=== PATIENT | female | born 1975 | race Caucasian/White ===

== ENCOUNTER 2020-11-05 16:45 | Outpatient (REF) | payer MEDICARE, MEDICAID, SELFPAY ==
--- NOTE | 2020-11-05 16:54 | XR_ITS ---
EXAMINATION: XR RIBS, RIGHT CLINICAL INFORMATION: Fall COMPARISON: Previous chest x-ray August 2017 TECHNIQUE: 3 views of the right ribs and one view of the chest were obtained. FINDINGS: Lungs are clear. No consolidation, pneumothorax, or pleural effusion. The cardiomediastinal silhouette and pulmonary vasculature are normal. Osseous structures are unremarkable. Ribs are intact. No fractures are identified. XR/XR ribs RT min 3V w CXR1V IMPRESSION: Unremarkable examination.
== END 2020-11-05 16:46 | disposition home or self-care (01) ==
LOC: HO.XRAY 16:45
PROVIDERS: PCP Internal Medicine; Visit Provider Internal Medicine
DX: R07.81 Pleurodynia (principal); Z91.81 History of falling
CPT/HCPCS: 71101

== ENCOUNTER 2021-05-21 16:09 | Outpatient (REF) | payer MEDICARE, MEDICAID, SELFPAY ==
--- NOTE | ~2021-05-21 | MM_ITS ---
EXAMINATION: MM SCREENING DIGITAL BREAST TOMOSYNTHESIS, BILATERAL CLINICAL INFORMATION: Screening. Asymptomatic. The lifetime risk of breast cancer based on the Tyrer-Cuzick Model is 6%. COMPARISON: Mammography: 05/31/2019, 01/20/2014 TECHNIQUE: Digital breast tomosynthesis is performed in both the craniocaudal and mediolateral oblique views along with computer-aided detection (CAD). Synthesized 2D images are generated from the tomosynthesis. FINDINGS: There are scattered areas of fibroglandular density (ACR BI-RADS breast composition Category b). There are no significant masses, abnormal calcifications, or other abnormalities. Parenchymal pattern is similar to prior exams. There is no developing density or interval mass or architectural abnormality. The axilla and skin contours are unremarkable. MM/MM tomosynthesis screening BI IMPRESSION: No mammographic evidence of malignancy. ASSESSMENT: BI-RADS 1: Negative RECOMMENDATION: Routine annual mammography screening. This patient's information was entered into a reminder system with a target due date for their next mammogram.
[2021-05-21 18:07] LABS: Thyroid Stimulating Hormone 0.59 uIU/mL (0.32-4.0)
== END 2021-05-21 16:10 | disposition home or self-care (01) ==
LOC: HO.MAMMO 16:09
PROVIDERS: Absent Provider Internal Medicine; PCP Internal Medicine; Visit Provider Internal Medicine
DX: Z12.31 Encounter for screening mammogram for malignant neoplasm of breast (principal); E03.9 Hypothyroidism, unspecified
CPT/HCPCS: 36415; 77063; 77067; 84443

== ENCOUNTER 2021-06-19 14:21 | Outpatient (REF) | payer MEDICARE, MEDICAID, SELFPAY ==
[2021-06-19 15:02] LABS: MANUAL DIFF FLAG NO
[2021-06-19 15:05] LABS: Basophils Percent Auto 0.4 % (0-2); Eosinophils Absolute Auto 0.3 X10*3/uL (0.0-0.4); Eosinophils Percent Auto 3.2 % (0-4); Hematocrit 35.4 % (37-47); Hemoglobin 12.1 g/dl (12.0-16.0); Imm Gran Abs Auto 0.04 X10*3/uL (0.00-0.03); Imm Gran Pct Auto 0.4 % (0.0-0.4); Lymphocytes Percent Auto 20.9 % (20-40); Mean Corpuscular HGB Conc 34.2 g/dl (31.0-35.0); Mean Corpuscular Hemoglobin 30.2 pg (27.0-33.0); Mean Corpuscular Volume 88.3 fL (80-98); Mean Platelet Volume 8.8 fL (9.4-12.3); Monocytes Absolute Auto 0.6 X10*3/uL (0.1-1.2); Monocytes Percent Auto 6.4 % (2-11); Neutrophils Absolute Auto 6.6 X10*3/uL (2.0-8.3); Neutrophils Percent Auto 68.7 % (45-73); Platelet Count 367 X10*3/uL (160-400); Red Blood Count 4.01 X10*6/uL (4.20-5.50); Red Cell Distribution Width 13.2 % (11.0-16.0); White Blood Count 9.6 X10*3/uL (4.8-10.8)
[2021-06-19 15:28] LABS: Alanine Aminotransferase 17 U/L (0-31); Albumin Level 4.2 g/dL (3.5-5.0); Alkaline Phosphatase 81 U/L (39-117); Anion Gap 11 (12-20); Aspartate Amino Transferase 19 U/L (5-31); Bilirubin Total 0.4 mg/dL (0.0-1.0); Blood Urea Nitrogen 7 mg/dL (9-16); Calcium 9.3 mg/dL (8.4-10.2); Carbon Dioxide 26 mmol/L (22-29); Chloride 103 mmol/L (96-108); Estimated Glomerular Filt Rate > 60; Glucose Random 97 mg/dL (60-115); Potassium 4.2 mmol/L (3.3-5.1); Sodium 136 mmol/L (135-145)
[2021-06-19 15:48] LABS: Free T4 (Free Thyroxine) 0.78 ng/dL (0.71-1.85); Thyroid Stimulating Hormone 1.07 uIU/mL (0.32-4.0)
[2021-06-21 11:40] LABS: Carbamazepine Tegretol 7.5 mcg/mL (5.0-12.0)
[2021-06-22 05:31] LABS: HPV 16 RNA DETECTED (NOT DETECTED); HPV mRNA E6/E7 rflx Detected (Not Detected)
[2021-06-22 13:09] LABS: Folate 6.6 ng/mL (> or = 4.0); Vitamin B12 477 pg/mL (200-900)
== END 2021-06-19 14:22 | disposition home or self-care (01) ==
LOC: HO.LAB 14:21
PROVIDERS: Obstetrics & Gynecology; PCP Internal Medicine; Visit Provider Internal Medicine
DX: Z01.419 Encounter for gynecological examination (general) (routine) without abnormal findings (principal); Z11.51 Encounter for screening for human papillomavirus (HPV); N91.2 Amenorrhea, unspecified; G40.209 Localization-related (focal) (partial) symptomatic epilepsy and epileptic syndromes with complex partial seizures, not intractable, without status epilepticus; F41.9 Anxiety disorder, unspecified
CPT/HCPCS: 36415; 80053; 80156; 80184; 82607; 82746; 84439; 84443; 85025; 87624; 87625; 88142; 99212

== ENCOUNTER → 2021-07-03 11:48 | Outpatient (BNVA) | payer MEDICARE, MEDICAID, SELFPAY | PROVIDERS: PCP Internal Medicine; Visit Provider Obstetrics & Gynecology | CPT/HCPCS: 99211 ==

== ENCOUNTER 2021-07-31 09:49 | Outpatient (REF) | payer MEDICARE, MEDICAID, SELFPAY | END 2021-07-31 09:50 | disposition home or self-care (01) | LOC: HO.LAB 09:49 | PROVIDERS: PCP Internal Medicine; Visit Provider Obstetrics & Gynecology | DX: A63.0 Anogenital (venereal) warts (principal); B97.7 Papillomavirus as the cause of diseases classified elsewhere | CPT/HCPCS: 57454; 88305; 88342; 88360 ==

== ENCOUNTER 2021-08-05 13:12 | Outpatient (REF) | payer MEDICARE, MEDICAID, SELFPAY | END 2021-08-05 13:13 | disposition home or self-care (01) | LOC: HO.LAB 13:12 | PROVIDERS: PCP Internal Medicine; Visit Provider Obstetrics & Gynecology | DX: D06.9 Carcinoma in situ of cervix, unspecified (principal); N39.0 Urinary tract infection, site not specified; N91.2 Amenorrhea, unspecified | CPT/HCPCS: 87086; 87088; 87186; 99212 ==

== ENCOUNTER 2021-08-15 15:34 | Emergency (ER) | payer MEDICARE, MEDICAID, SELFPAY | END 2021-08-15 16:35 | disposition left against medical advice (07) | PROVIDERS: Emergency Provider Emergency Medicine; PCP Internal Medicine | DX: R21 Rash and other nonspecific skin eruption (principal); R07.9 Chest pain, unspecified ==

== ENCOUNTER 2021-08-23 07:36 | Day surgery (SDC) | payer MEDICARE, MEDICAID, SELFPAY ==
--- NOTE | 2021-08-22 11:56 | HO.ANESPROP2 ---
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 (Acute) HPV in female (Acute) Amenorrhea (Acute) Well woman exam (Acute) Cough (Acute) Acute sinusitis (Acute) Tobacco abuse (Acute) Complex partial seizure (Acute) Anxiety (Acute) GERD (gastroesophageal reflux disease) (Acute) Asthma (Acute) Status post fall (Acute) Rib pain on right side (Acute) Past Medical History Medical History Anxiety Asthma Complex partial seizure GERD (gastroesophageal reflux disease) Head trauma Rib pain on right side Tobacco abuse Vitamin D deficiency Family History Family History (Updated 08/16/21 @ 13:27 by DALY Francisco) Father Parkinson disease Stroke CVD (cardiovascular disease) TIA (transient ischemic attack) Mother Non Hodgkin's lymphoma Hypertension Paternal Aunt Ovarian cancer Paternal Uncle Pancreatic cancer Surgical History Surgical History Cavernous hemangioma of brain History of removal of ovarian cyst History of tubal ligation Social History Social History Housing: House Alcohol intake: never Patient Tobacco Use Status: Current everyday Tobacco user Tobacco use type: Cigarette Cigarette Packs Per Day: 0.3 Cigarettes Per Day: 6.0 e-Cigarette/Vaping Use: Never Used Second Hand Smoke Exposure: No Use of substances other than those prescribed or required for medical reasons: No Are you DNR?: No Advance Directives: No Advance Directives Information Provided: Yes Current occupational status: employed Meds Allergies Allergy/AdvReac Type Severity Reaction Status Date / Time vancomycin [VANCOMYCIN] Allergy Severe ANAPHYLAXIS Verified 08/16/21 13:24 nitrofurantoin Allergy Intermediate Rash Verified 08/16/21 13:24 [From Macrobid] fluconazole [Diflucan] Allergy Unknown anaphylaxis Verified 08/16/21 13:24 pantoprazole [Protonix] Allergy Unknown anaphylaxis Verified 08/16/21 13:24 phenytoin [Dilantin] Allergy Unknown hives Verified 08/16/21 13:24 Home Medications Medication Instructions Recorded Confirmed Last Taken Type carbamazepine 200 mg 200 mg PO 11/05/20 08/14/21 08/23/21 History capsule,extended release [id number] cholecalciferol (vitamin D3) 50 50 mcg PO DAILY 11/05/20 08/15/21 Unknown History mcg (2,000 unit) capsule levetiracetam 500 mg tablet 1,500 mg PO BID 11/05/20 08/15/21 08/23/21 History phenobarbital 32.4 mg tablet 0 mg PO 11/05/20 08/14/21 08/23/21 History lansoprazole 30 mg capsule,delayed 30 mg PO DAILY 11/12/20 08/15/21 08/23/21 History release (Prevacid) Exam Exam Date and Time: August 22, 2021 115 Pertinent Lab Results Pertinent Lab Results: Laboratory Tests 06/19/21 06/19/21 14:35 14:35 WBC 9.6 Hgb 12.1 Hct 35.4 L Plt Count 367 Sodium 136 Potassium 4.2 Chloride 103 Carbon Dioxide 26 BUN 7 L Creatinine 0.73 Assessment and Plan Assessment Anesthesia Assessment: Chart Reviewed Documented by User: Elis Rhoades MD 08/23/21 09:06 [facility] Past Medical History Medical History Anxiety Asthma Complex partial seizure GERD (gastroesophageal reflux disease) Head trauma Rib pain on right side Tobacco abuse Vitamin D deficiency Functional capacity: independent ambulation Patient : No Family History Family History (Updated 08/16/21 @ 13:27 by DALY Francisco) Father Parkinson disease Stroke CVD (cardiovascular disease) TIA (transient ischemic attack) Mother Non Hodgkin's lymphoma Hypertension Paternal Aunt Ovarian cancer Paternal Uncle Pancreatic cancer Family history of problems with anesthesia: No Surgical History Surgical History Cavernous hemangioma of brain History of removal of ovarian cyst History of tubal ligation Social History Social History Housing: House Alcohol intake: never Patient Tobacco Use Status: Current everyday Tobacco user Tobacco use type: Cigarette Cigarette Packs Per Day: 0.3 Cigarettes Per Day: 6.0 e-Cigarette/Vaping Use: Never Used Second Hand Smoke Exposure: No Use of substances other than those prescribed or required for medical reasons: No Are you DNR?: No Advance Directives: No Advance Directives Information Provided: Yes Current occupational status: employed Meds Allergies Allergy/AdvReac Type Severity Reaction Status Date / Time vancomycin [VANCOMYCIN] Allergy Severe ANAPHYLAXIS Verified 08/16/21 13:24 nitrofurantoin Allergy Intermediate Rash Verified 08/16/21 13:24 [From Macrobid] fluconazole [Diflucan] Allergy Unknown anaphylaxis Verified 08/16/21 13:24 pantoprazole [Protonix] Allergy Unknown anaphylaxis Verified 08/16/21 13:24 phenytoin [Dilantin] Allergy Unknown hives Verified 08/16/21 13:24 Home Medications Medication Instructions Recorded Confirmed Last Taken Type carbamazepine 200 mg 200 mg PO 11/05/20 08/14/21 08/23/21 History capsule,extended release [id number] cholecalciferol (vitamin D3) 50 50 mcg PO DAILY 11/05/20 08/15/21 Unknown History mcg (2,000 unit) capsule levetiracetam 500 mg tablet 1,500 mg PO BID 11/05/20 08/15/21 08/23/21 History phenobarbital 32.4 mg tablet 0 mg PO 11/05/20 08/14/21 08/23/21 History lansoprazole 30 mg capsule,delayed 30 mg PO DAILY 11/12/20 08/15/21 08/23/21 History release (Prevacid) Exam Airway Mallampati Class: II TM Dist: >3cm Neck ROM: Full Denture: Upper and Lower Heart: RRR Lungs: CTA Assessment and Plan Final Anesthetic Review Family History of Problems with Anesthesia: No
[2021-08-23] VITALS (8 sets, daily range): BP systolic 98–106; BP diastolic 57–68; PULSE 69–85; RESP 12–18; TEMP 36.3–36.8; O2SAT 96–100; BMI 29.5
[2021-08-23] MEDS: Lactated Ringers 1,000 ML 100 ML IVCONT (08:14)
[2021-08-23 08:15] LABS: UPreg QC Valid YES; Urine Pregnancy NEGATIVE (NEGATIVE)
--- NOTE | 2021-08-23 08:35 | MHC.SHP ---
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 No changes have occurred unless specified.
--- NOTE | 2021-08-23 09:19 | P.BOP_ITS ---
Brief Operative Note Date of Service: 08/23/21 Pre-op diagnosis: PAO 2-3 Post-op diagnosis: same Procedure: LEEP CONE with post CONE ECC Surgeon: Abel Barbosa MD Anesthesia: local and other (Paracervical block) Was an Newspaper Copy Editor used for this Procedure?: No Estimated blood loss (mL): 0 Pathology: other (Cervical cone, Endocx, Post cone ECC) Condition: stable Disposition: other (Home)
--- NOTE | 2021-08-23 09:20 | W.PM.OPN ---
Operative Note Operative Note Date of Service: 08/23/21 Narrative: Preop diagnosis: PAO 3 Operation: LEEP Cone with post cone ECC Post op diagnosis: same Anesthesia: paracervical block, mac Complications: none Pathology: Cervical cone with endocervix & post cone ECC QBL: minimal Procedure: The patient was put in the dorsal lithotomy position, was prepped and draped in the usual sterile fashion. A sterile speculum was inserted inside the patient vagina. Using Lugol solution the cervix with Dyed with Lugol solution to identifiy the abnormal demarcating line. 10 cc of Marcaine 0.5% with epinephrine were given at 2,4 , 8, and 10 o'clock. Using a medium-size loop wire, the cervical cone was excised followed by the endocervix, and post cone ECC was done afterwards. Hemostasis was assured using cautery and Monsel solution. All instruments were taken out of the patient's vaginal cavity. the patient tolerated the procedure well and was discharged home with the following instructions: call if temperature is above 100.4, vaginal bleeding, abdominal pain or nausea or vomiting. Follow-up in the office in 2 weeks for postop visit
[2021-08-23] MEDS: Acetaminophen 325 MG TABLET 650 MG PO (09:49)
[2021-08-23] MEDS: oxyCODONE HCl Immed Release 5 MG TABLET PO (09:51)
--- NOTE | 2021-08-23 13:57 | HO.POSTANES ---
Post Anesthesia Evaluation Post Anesthesia Evaluation Vital Signs: Vital Signs Temp Pulse Resp BP Pulse Ox 08/23/21 10:05 97.5 F 08/23/21 09:58 73 18 105/65 98 08/23/21 09:52 103/64 08/23/21 09:43 80 16 98/68 99 08/23/21 09:38 76 16 105/62 97 08/23/21 09:33 85 16 106/62 96 08/23/21 09:28 97.3 F 69 12 99/57 L 100 08/23/21 08:00 98.3 F 82 16 105/58 L 98 Anesthesia: Monitored and General LMA Mental Status: Awake Pain Control: Satisfactory Nausea/Vomiting: None Hydration: Adequate Anesthesia-Related Issues: No Anes. Related Issues
== END 2021-08-23 10:59 | disposition home or self-care (01) ==
PROVIDERS: PCP Internal Medicine; Visit Provider Obstetrics & Gynecology
PROC: 0UBC7ZZ Excision of Cervix, Via Natural or Artificial Opening (ICD-10-PCS; CPT 57522; principal; 2021-08-23 09:00)
DX: N87.1 Moderate cervical dysplasia (principal); J45.909 Unspecified asthma, uncomplicated; Z88.1 Allergy status to other antibiotic agents; Z88.8 Allergy status to other drugs, medicaments and biological substances
CPT/HCPCS: 57522; 81025; 88305; 88307; J1100; J2250; J2405; J3010

== ENCOUNTER → 2021-09-05 12:16 | Outpatient (BNVA) | payer MEDICARE, MEDICAID, SELFPAY | PROVIDERS: PCP Internal Medicine; Visit Provider Obstetrics & Gynecology | DX: N87.1 Moderate cervical dysplasia (principal) | CPT/HCPCS: 99212 ==

== ENCOUNTER 2021-09-23 11:15 | Outpatient (REF) | payer MEDICARE, MEDICAID, SELFPAY ==
[2021-09-23 14:08] LABS: Appearance Urine HAZY; Color Urine DK YELLOW; Glucose Urine UA NEG (NEG); Leukocyte Esterase Urine TRACE (NEG); Nitrite Urine POS (NEG); UACC Culture Trigger YES; Urine Blood NEG (NEG); Urine Ketones NEG (NEG); Urine Protein TRACE MG/DL (NEG-TRACE)
[2021-09-23 14:33] LABS: RBC Urine 0 /HPF (0); Squamous Epithelial Cell Urine 1+ /LPF; WBC Urine 0-2 /HPF (0-4)
[2021-09-23 14:34] LABS: Bacteria Urine TRACE /LPF
== END 2021-09-23 11:16 | disposition home or self-care (01) ==
LOC: HO.HMGCLDS 11:15
PROVIDERS: PCP Internal Medicine; Visit Provider Internal Medicine
DX: R30.0 Dysuria (principal)
CPT/HCPCS: 81001; 81003; 87086; 87147

== ENCOUNTER 2021-10-08 14:45 | Outpatient (REF) | payer MEDICARE, MEDICAID, SELFPAY | END 2021-10-08 14:46 | disposition home or self-care (01) | LOC: HO.LAB 14:45 | PROVIDERS: PCP Internal Medicine; Visit Provider Internal Medicine | DX: Z13.89 Encounter for screening for other disorder (principal) ==

== ENCOUNTER 2021-10-08 14:47 | Outpatient (REF) | payer MEDICARE, MEDICAID, SELFPAY ==
[2021-10-08 15:33] LABS: Appearance Urine HAZY; Color Urine YELLOW; Glucose Urine UA NEG (NEG); Leukocyte Esterase Urine NEG (NEG); Nitrite Urine NEG (NEG); Urine Blood NEG (NEG); Urine Ketones 5 MG/DL (NEG); Urine Protein NEG (NEG-TRACE)
[2021-10-09 08:24] LABS: HBc Num1 0.08 S/CO (0.00-0.79); HBsAGNum1 0.18 S/CO (0.00-0.99); Hepatitis B Core Antibody Nonreactive (Nonreactive); Hepatitis B Surface Antigen Negative (Negative)
[2021-10-09 08:33] LABS: ~Hepatitis B Surface Antibody NONREACTIVE (Nonreactive)
[2021-10-09 18:21] LABS: Rubella IgG Antibody 4.76 Index; Rubeola IgG (Measles) >300.00 AU/mL
== END 2021-10-08 14:48 | disposition home or self-care (01) ==
LOC: HO.LAB 14:47
PROVIDERS: PCP Internal Medicine; Visit Provider Internal Medicine
DX: Z01.84 Encounter for antibody response examination (principal); R30.0 Dysuria
CPT/HCPCS: 36415; 81003; 86704; 86706; 86735; 86762; 86765; 86787; 87340

== ENCOUNTER 2021-12-16 08:07 | Outpatient (REF) | payer MEDICARE, MEDICAID, SELFPAY ==
[2021-12-16 11:17] LABS: MANUAL DIFF FLAG NO
[2021-12-16 11:25] LABS: Basophils Percent Auto 0.5 % (0-2); Eosinophils Absolute Auto 0.4 X10*3/uL (0.0-0.4); Eosinophils Percent Auto 6.4 % (0-4); Hematocrit 37.2 % (37.0-47.0); Hemoglobin 12.6 g/dl (12.0-16.0); Imm Gran Abs Auto 0.01 X10*3/uL (0.00-0.03); Imm Gran Pct Auto 0.2 % (0.0-0.4); Lymphocytes Absolute Auto 2.7 X10*3/uL (1.2-4.9); Mean Corpuscular HGB Conc 33.9 g/dl (31.0-35.0); Mean Corpuscular Hemoglobin 29.8 pg (27.0-33.0); Mean Corpuscular Volume 87.9 fL (80.0-98.0); Mean Platelet Volume 9.6 fL (9.4-12.3); Monocytes Absolute Auto 0.5 X10*3/uL (0.1-1.2); Monocytes Percent Auto 7.6 % (2-11); Neutrophils Absolute Auto 2.9 x10*3/uL (2.0-8.3); Neutrophils Percent Auto 44.3 % (45-73); Platelet Count 352 X10*3/uL (160-400); Red Blood Count 4.23 X10*6/uL (4.20-5.50); Red Cell Distribution Width 13.1 % (11.0-16.0); White Blood Count 6.6 X10*3/uL (4.8-10.8)
[2021-12-16 11:56] LABS: Alanine Aminotransferase 14 U/L (0-31); Albumin Level 4.2 g/dL (3.5-5.0); Alkaline Phosphatase 75 U/L (39-117); Anion Gap 11 (12-20); Aspartate Amino Transferase 16 U/L (5-31); Bilirubin Total 0.4 mg/dL (0.0-1.0); Blood Urea Nitrogen 9 mg/dL (9-16); Calcium 9.3 mg/dL (8.4-10.2); Carbon Dioxide 27 mmol/L (22-29); Chloride 97 mmol/L (96-108); Cholesterol 198 mg/dL; Estimated Glomerular Filt Rate > 60; Glucose Random 83 mg/dL (60-115); HDL Cholesterol 60 mg/dL; LDL Cholesterol Calculated 117 mg/dl; Sodium 131 mmol/L (135-145); Total Protein 7.2 g/dL (6.5-8.0); Triglycerides 106 mg/dL
[2021-12-16 11:57] LABS: Free T4 (Free Thyroxine) 0.74 ng/dL (0.71-1.85); Thyroid Stimulating Hormone 1.56 uIU/mL (0.32-4.0); Vitamin D 25-OH Total 23.9 ng/mL (>30)
[2021-12-16 12:05] LABS: Folate 5.9 ng/mL (> or = 4.0); Vitamin B12 444 pg/mL (200-900)
[2021-12-16 12:22] LABS: Carbamazepine Tegretol 9.9 mcg/mL (5.0-12.0)
[2021-12-18 23:31] LABS: Follicle Stimulating Hormone 87.7 mIU/mL; Lutenizing Hormone 39.6 mIU/mL
== END 2021-12-16 08:08 | disposition home or self-care (01) ==
LOC: HO.LAB 08:07
PROVIDERS: PCP Internal Medicine; Visit Provider Obstetrics & Gynecology
DX: G40.209 Localization-related (focal) (partial) symptomatic epilepsy and epileptic syndromes with complex partial seizures, not intractable, without status epilepticus (principal); N91.2 Amenorrhea, unspecified; E78.00 Pure hypercholesterolemia, unspecified; Z79.899 Other long term (current) drug therapy
CPT/HCPCS: 36415; 80053; 80061; 80156; 80184; 82306; 82607; 82746; 83001; 83002; 84439; 84443; 85025

== ENCOUNTER → 2021-12-25 12:07 | Outpatient (BNVA) | payer MEDICARE, MEDICAID, SELFPAY | PROVIDERS: Visit Provider Obstetrics & Gynecology | DX: Z78.0 Asymptomatic menopausal state (principal) | CPT/HCPCS: Q3014 ==

== ENCOUNTER 2022-03-17 18:39 | Emergency (ER) | payer MEDICARE, MEDICAID, SELFPAY | END 2022-03-17 19:07 | disposition left against medical advice (07) | PROVIDERS: Emergency Provider Emergency Medicine; PCP Internal Medicine | DX: J32.9 Chronic sinusitis, unspecified (principal) ==

== ENCOUNTER 2022-03-18 04:30 | Emergency (ER) | payer MEDICARE, MEDICAID, SELFPAY ==
--- NOTE | ~2022-03-18 | XR_ITS ---
EXAMINATION: XR CHEST CLINICAL INFORMATION: Cough. Rule out pneumonia. COMPARISON: 11/05/2020 TECHNIQUE: Frontal view of the chest was obtained. FINDINGS: The lungs are well expanded. There is no focal consolidation, edema, or effusion. No pneumothorax. The cardiomediastinal silhouette is within normal limits. No acute osseous abnormality. XR/XR chest 1V IMPRESSION: Clear lungs.
[2022-03-18 04:36] VITALS: BP 108/71; PULSE 95; RESP 16; TEMP 36.7; O2SAT 99; BMI 27.5
[2022-03-18 04:50] LABS: Basophils Percent Auto 0.5 % (0-2); Eosinophils Percent Auto 0.3 % (0-4); Hemoglobin 12.1 g/dl (12.0-16.0); Imm Gran Abs Auto 0.01 X10*3/uL (0.00-0.03); Imm Gran Pct Auto 0.2 % (0.0-0.4); Lymphocytes Absolute Auto 0.9 X10*3/uL (1.2-4.9); Lymphocytes Percent Auto 13.5 % (20-40); MANUAL DIFF FLAG NO; Mean Corpuscular HGB Conc 33.6 g/dl (31.0-35.0); Mean Corpuscular Hemoglobin 29.7 pg (27.0-33.0); Mean Corpuscular Volume 88.5 fL (80.0-98.0); Mean Platelet Volume 8.2 fL (9.4-12.3); Monocytes Absolute Auto 0.5 X10*3/uL (0.1-1.2); Monocytes Percent Auto 7.4 % (2-11); Neutrophils Absolute Auto 5.2 x10*3/uL (2.0-8.3); Neutrophils Percent Auto 78.1 % (45-73); Platelet Count 311 X10*3/uL (160-400); Red Blood Count 4.07 X10*6/uL (4.20-5.50); Red Cell Distribution Width 13.8 % (11.0-16.0); White Blood Count 6.7 X10*3/uL (4.8-10.8)
[2022-03-18 05:03] VITALS: BP 132/75; PULSE 84; RESP 15; O2SAT 96
[2022-03-18 05:10] LABS: Alanine Aminotransferase 34 U/L (0-31); Albumin Level 3.9 g/dL (3.5-5.0); Alkaline Phosphatase 93 U/L (39-117); Anion Gap 12 (12-20); Aspartate Amino Transferase 26 U/L (5-31); Bilirubin Total < 0.2 mg/dL (0.0-1.0); Blood Urea Nitrogen 5 mg/dL (9-16); Calcium 8.9 mg/dL (8.4-10.2); Carbon Dioxide 24 mmol/L (22-29); Chloride 99 mmol/L (96-108); Creatinine Clr Calc Pharmacy 123.8; Estimated Glomerular Filt Rate > 60; Glucose Random 118 mg/dL (60-115); Sodium 131 mmol/L (135-145); Total Protein 6.9 g/dL (6.5-8.0)
--- NOTE | 2022-03-18 05:16 | ED_ITS ---
HPI - General Adult General Chief complaint: Headache Stated complaint: Migraine/Fever Time Seen by Provider: 03/18/22 05:10 Source: patient Mode of arrival: ambulatory Limitations: no limitations History of Present Illness HPI narrative: Patient comes to the emergency room complaining of a headache for 2 days. Pablo christy states that she has been taking ibuprofen and Tylenol with no relief. Patient states that the coughing has been aggravating her headache. Patient denies fever chills, complaining of dry cough. No shortness of breath. No chest pain. Patient denies visual changes, complaining of photophobia and nausea and vomiting. Related Data Home Medications Medication Instructions Recorded Confirmed carbamazepine 200 mg 200 mg PO 11/05/20 11/19/21 capsule,extended release [id number] levetiracetam 500 mg tablet 1,500 mg PO BID 11/05/20 03/18/22 phenobarbital 32.4 mg tablet 32.4 mg PO 11/05/20 11/19/21 lansoprazole 30 mg capsule,delayed 30 mg PO DAILY 11/12/20 03/18/22 release (Prevacid) zinc 50 mg tablet 50 mg PO DAILY 03/17/22 03/18/22 Previous Rx's Medication Instructions Recorded fexofenadine 180 mg tablet 180 mg PO DAILY #30 tab 10/17/21 (Allergy Relief (fexofenadine)) fluticasone propionate 50 1 spray INTRANASAL DAILY 10 Days 11/11/21 mcg/actuation nasal #150 ml spray,suspension (Flonase Allergy Relief) montelukast 10 mg tablet 10 mg PO DAILY 90 Days #90 tab 11/19/21 albuterol sulfate 90 mcg/actuation 2 puff INHALATION Q4-6H PRN #8.5 ea 12/13/21 aerosol inhaler cholecalciferol (vitamin D3) 50 50 mcg PO DAILY #90 cap 12/13/21 mcg (2,000 unit) capsule amoxicillin 500 mg capsule 500 mg PO Q8H #30 cap 03/17/22 meloxicam 15 mg tablet 15 mg PO DAILY #14 tab 03/17/22 sumatriptan succinate 50 mg tablet 50 mg PO Q2-4H PRN #7 tab 03/18/22 Allergies Allergy/AdvReac Type Severity Reaction Status Date / Time vancomycin [VANCOMYCIN] Allergy Severe ANAPHYLAXIS Verified 03/18/22 05:10 nitrofurantoin Allergy Intermediate Rash Verified 03/18/22 05:10 [From Macrobid] fluconazole [Diflucan] Allergy Unknown anaphylaxis Verified 03/18/22 05:10 pantoprazole [Protonix] Allergy Unknown anaphylaxis Verified 03/18/22 05:10 phenytoin [Dilantin] Allergy Unknown hives Verified 03/18/22 05:10 Review of Systems Review of Systems: Constitutional : No Weight loss, No Fever, No Chills, No Night Sweats, No Fatigue, No Malaise ENT/Mouth : No Hearing loss, No Ear Pain, No Nasal Congestion, No Sinus Pain, No Hoarseness, No sore throat, No Rhinorrhea, No Swallowing Difficulty Eyes: No Eye Pain, No Swelling, No Redness, No Foreign Body, No Discharge, No Vision Changes, complaining of photophobia, denies visual changes Cardiovascular : No Chest Pain, No SOB, No Dyspnea on Exertion, No Orthopnea, No Edema, No Palpitations Respiratory : Complaining of dry cough, No Sputum, No Wheezing, No Smoke Exposure, No Dyspnea Gastrointestinal : No Nausea, No Vomiting, No Diarrhea, No Constipation, No abdominal Pain, No Hematochezia, No Melena Genitourinary : no irregular bleeding, No Dysuria, No Urinary Frequency, No H ematuria, No Urinary Incontinence, No Urgency, No Flank Pain, No Urinary Flow Changes, No Hesitancy Musculoskeletal : No joint pain, No Myalgias, No Joint Swelling Skin : No Skin Lesions, No rash Neuro : No Weakness, No Numbness, No Paresthesias, No Loss of Consciousness, No Dizziness, complaining of Headache Psych : No Anxiety/Panic, No Depression, No SI/HI/AH/VH, No Social Issues, Heme/Lymph: No Bruising, No Bleeding,No Lymphadenopathy Endocrine : No Polyuria, No Polydipsia, No Temperature Intolerance [facility], [facility] Past Medical History Medical History Amenorrhea Anxiety Asthma PAO II (cervical intraepithelial neoplasia II) Complex partial seizure GERD (gastroesophageal reflux disease) Head trauma HPV in female PUD (peptic ulcer disease) Tobacco abuse Vitamin D deficiency Surgical History Cavernous hemangioma of brain History of removal of ovarian cyst History of tubal ligation Family History Family History Father Parkinson disease Stroke CVD (cardiovascular disease) TIA (transient ischemic attack) Mother Non Hodgkin's lymphoma Hypertension Paternal Aunt Ovarian cancer Paternal Uncle Pancreatic cancer Social History Social History Housing: House Alcohol intake: never Patient Tobacco Use Status: Former Tobacco user Tobacco use type: Cigarette Cigarette Packs Per Day: 0.3 Cigarettes Per Day: 6.0 Smoked in Last 30 Days: Yes e-Cigarette/Vaping Use: Never Used Second Hand Smoke Exposure: No Use of substances other than those prescribed or required for medical reasons: No Advance Directives: No Current occupational status: employed Physical Exam ED Vital Signs: Vital Signs - 24 hr 03/18/22 04:36 03/18/22 05:03 03/18/22 06:04 Temperature 98.1 F Pulse Rate 95 84 97 Respiratory Rate 16 15 17 Blood Pressure 108/71 132/75 119/67 Pulse Oximetry 99 96 96 BMI result Body Mass Index 27.5 Const Other: Appearance: Alert. Oriented X3. No acute distress. Eyes: Pupils equal, round and reactive to light. ENT: Pharynx normal. Neck: Normal inspection. Neck supple. No lymph nodes noted. No crepitus CVS: Normal heart rate and rhythm. Pulses normal. Normal S1 and S2 Respiratory: No respiratory distress. Breath sounds normal. No Wheezing. No rales , actively coughing, no sputum production Abdomen: Soft and nontender. No rigidity. No distention. Skin: Skin warm and dry. Normal skin color. Normal skin turgor. Extremities: No lower extremity edema. No Lacerations. No Rash Neuro: Oriented X 3. No motor deficit. No sensory deficit. Moving all extre mities. No slurred speech. CN 2 through 12 grossly intact Psych: calm, cooperative, normal affect Course Course Course Narrative: Patient will be getting IV fluids, Phenergan, Toradol and Benadryl. Chest x-ray pending. Patient tested negative for COVID but tested positive for influenza A. Patient has been having symptoms for over 3 days. I discussed the benefits versus adverse effects of Tamiflu. The patient decided not to take the medication Chest x-ray negative. Patient states that she feels much better, however she still has a bit of a headache. Patient given 1 dose of p.o. sumatriptan. Medical Decision Making Lab Data Result diagrams: 03/18/22 04:39 03/18/22 04:39 Labs: Lab Results 03/18/22 03/18/22 03/18/22 Range/Units 04:39 04:39 05:25 WBC 6.7 (4.8-10.8) X10*3/uL RBC 4.07 L (4.20-5.50) X10*6/uL Hgb 12.1 (12.0-16.0) g/dl Hct 36.0 L (37.0-47.0) % MCV 88.5 (80.0-98.0) fL MCH 29.7 (27.0-33.0) pg MCHC 33.6 (31.0-35.0) g/dl RDW 13.8 (11.0-16.0) % Plt Count 311 (160-400) X10*3/uL MPV 8.2 L (9.4-12.3) fL Immature Gran % (Auto) 0.2 (0.0-0.4) % Neut % (Auto) 78.1 H (45-73) % Lymph % (Auto) 13.5 L (20-40) % [place] % (Auto) 7.4 (2-11) % Eos % (Auto) 0.3 (0-4) % Baso % (Auto) 0.5 (0-2) % Lymph # (Auto) 0.9 L (1.2-4.9) X10*3/uL [place] # (Auto) 0.5 (0.1-1.2) X10*3/uL Eos # (Auto) 0.0 (0.0-0.4) X10*3/uL Baso # (Auto) 0.0 (0.0-0.2) X10*3/uL Abs Immat Gran (auto) 0.01 (0.00-0.03) X10*3/uL Absolute Neuts (auto) 5.2 (2.0-8.3) x10*3/uL Absolute Nucleated RBC 0.000 (0.0-0.012) X10*3/uL Nucleated RBC % (auto) 0.0 (0.0-0.2) /100WBC Sodium 131 L (135-145) mmol/L Potassium 4.0 (3.3-5.1) mmol/L Chloride 99 (96-108) mmol/L Carbon Dioxide 24 (22-29) mmol/L Anion Gap 12 (12-20) BUN 5 L (9-16) mg/dL Creatinine 0.68 (0.5-1.4) mg/dL Estim Creat Clear Calc 123.8 Estimated GFR > 60 Random Glucose 118 H (60-115) mg/dL Calcium 8.9 (8.4-10.2) mg/dL Total Bilirubin < 0.2 (0.0-1.0) mg/dL AST 26 D (5-31) U/L ALT 34 H (0-31) U/L Alkaline Phosphatase 93 D (39-117) U/L Total Protein 6.9 (6.5-8.0) g/dL Albumin 3.9 (3.5-5.0) g/dL COVID-19 (RAJI) (Negative) COVID-19 Clin Com Influenza Type A (JANES) Positive A (Negative) Influenza Type B (JANES) Negative (Negative) Influenza A & B Note See Note 03/18/22 Range/Units 05:25 WBC (4.8-10.8) X10*3/uL RBC (4.20-5.50) X10*6/uL Hgb (12.0-16.0) g/dl Hct (37.0-47.0) % MCV (80.0-98.0) fL MCH (27.0-33.0) pg MCHC (31.0-35.0) g/dl RDW (11.0-16.0) % Plt Count (160-400) X10*3/uL MPV (9.4-12.3) fL Immature Gran % (Auto) (0.0-0.4) % Neut % (Auto) (45-73) % Lymph % (Auto) (20-40) % [place] % (Auto) (2-11) % Eos % (Auto) (0-4) % Baso % (Auto) (0-2) % Lymph # (Auto) (1.2-4.9) X10*3/uL [place] # (Auto) (0.1-1.2) X10*3/uL Eos # (Auto) (0.0-0.4) X10*3/uL Baso # (Auto) (0.0-0.2) X10*3/uL Abs Immat Gran (auto) (0.00-0.03) X10*3/uL Absolute Neuts (auto) (2.0-8.3) x10*3/uL Absolute Nucleated RBC (0.0-0.012) X10*3/uL Nucleated RBC % (auto) (0.0-0.2) /100WBC Sodium (135-145) mmol/L Potassium (3.3-5.1) mmol/L Chloride (96-108) mmol/L Carbon Dioxide (22-29) mmol/L Anion Gap (12-20) BUN (9-16) mg/dL Creatinine (0.5-1.4) mg/dL Estim Creat Clear Calc Estimated GFR Random Glucose (60-115) mg/dL Calcium (8.4-10.2) mg/dL Total Bilirubin (0.0-1.0) mg/dL AST (5-31) U/L ALT (0-31) U/L Alkaline Phosphatase (39-117) U/L Total Protein (6.5-8.0) g/dL Albumin (3.5-5.0) g/dL COVID-19 (RAJI) Negative (Negative) COVID-19 Clin Com See Note Influenza Type A (JANES) (Negative) Influenza Type B (JANES) (Negative) Influenza A & B Note Imaging Data Chest x-ray: Radiologist's impression: The lungs are well expanded. There is no focal consolidation, edema, or effusion. No pneumothorax. The cardiomediastinal silhouette is within normal limits. No acute osseous abnormality. XR/XR chest 1V IMPRESSION: Clear lungs. Discharge Plan Discharge Clinical Impression: Headache, migraine, Influenza A Patient Disposition: Home, Self-Care Instructions: Migraine Headache (ED), Influenza (ED) Additional Instructions: Please follow-up with your primary care physician tomorrow. If you have any worsening or new symptoms, please return to the emergency room or call 911 Prescriptions: New sumatriptan succinate 50 mg tablet 50 mg PO Q2-4H PRN (Reason: migraine headache) Qty: 7 0RF Rx Instructions: do not exceed 4 doses per 24 hrs No Action fluticasone propionate [Flonase Allergy Relief] 50 mcg/actuation spray,suspension 1 spray intranasal DAILY 10 Days Qty: 150 5RF Rx Instructions: administer into each nostril cholecalciferol (vitamin D3) 50 mcg (2,000 unit) capsule 50 mcg PO DAILY Qty: 90 0RF albuterol sulfate 90 mcg/actuation HFA aerosol inhaler 2 puff inhalation Q4-6H PRN (Reason: for wheezing) Qty: 8.5 2RF lansoprazole [Prevacid] 30 mg capsule,delayed release(DR/EC) 30 mg PO DAILY 0RF phenobarbital 32.4 mg tablet 32.4 mg PO 0RF carbamazepine 200 mg capsule, ER multiphase 12 hr 200 mg PO 0RF levetiracetam 500 mg tablet 1,500 mg PO BID 0RF montelukast 10 mg tablet 10 mg PO DAILY 90 Days Qty: 90 1RF fexofenadine [Allergy Relief (fexofenadine)] 180 mg tablet 180 mg PO DAILY Qty: 30 2RF zinc 50 mg tablet 50 mg PO DAILY 0RF amoxicillin 500 mg capsule 500 mg PO Q8H Qty: 30 0RF meloxicam 15 mg tablet 15 mg PO DAILY Qty: 14 0RF
[2022-03-18] MEDS: 0.9 % Sodium Chloride 1,000 ML 999 ML IVCONT (05:18)
[2022-03-18] MEDS: diphenhydrAMINE HCL 50 MG/ML VIAL 25 MG IVPUSH (05:21)
[2022-03-18] MEDS: Ketorolac Tromethamine 30 MG/ML VIAL IVPUSH (05:21)
[2022-03-18] MEDS: Metoclopramide HCl 10 MG/2 ML VIAL IVPUSH (05:21)
[2022-03-18 05:48] LABS: COVID-19 Test Negative (Negative); IDNOW Serial# 16C4AD1C; Influenza A Positive (Negative); Influenza B2 Negative (Negative)
[2022-03-18 06:04] VITALS: BP 119/67; PULSE 97; RESP 17; O2SAT 96
[2022-03-18 07:05] VITALS: BP 98/63; PULSE 79; RESP 15; O2SAT 92
[2022-03-18] MEDS: SUMAtriptan succinate 50 MG TABLET PO (07:10)
[2022-03-18 07:11] VITALS: BP 100/70; PULSE 78; RESP 16; TEMP 36.6; O2SAT 97
== END 2022-03-18 07:42 | disposition home or self-care (01) ==
PROVIDERS: Emergency Provider Emergency Medicine; PCP Internal Medicine
DX: J10.1 Influenza due to other identified influenza virus with other respiratory manifestations (principal); R05.9 Cough, unspecified; G43.909 Migraine, unspecified, not intractable, without status migrainosus; R50.9 Fever, unspecified; Z20.822 Contact with and (suspected) exposure to COVID-19; Z79.899 Other long term (current) drug therapy; Z87.891 Personal history of nicotine dependence
CPT/HCPCS: 36415; 71045; 80053; 85025; 87502; 87635; 96361; 96374; 96375; 99284; 99285; J1200; J1885; J2765

== ENCOUNTER 2022-09-06 15:59 | Emergency (ER) | payer MEDICARE, MEDICAID, SELFPAY ==
--- NOTE | ~2022-09-06 | US_ITS ---
EXAMINATION: US VENOUS ULTRASOUND WITH DOPPLER LOWER EXTREMITY, LEFT CLINICAL INFORMATION: Pain and swelling left lower extremity. COMPARISON: None TECHNIQUE: Ultrasound of the deep veins is performed from the hip to the calf with compression sonography and color and pulse Doppler assessment. Spectral analysis with color-flow imaging is performed. FINDINGS: There is normal venous compression and respiratory variation and augmented flow. The visualized common femoral vein, superficial femoral vein, profunda femoral vein, popliteal vein, and the trifurcation region shows no evidence of deep venous thrombosis. There is no significant popliteal fossa cyst. Images labeled left anterior knee demonstrate an anechoic fluid collection measuring approximately 5.3 cm x 1.1 cm x 4.7 cm with no measurable internal flow. If the patient's symptoms persist, followup ultrasound in 5 days 7 days might be of value to exclude proximal propagation from a non-visualized calf vein. US/US venous duplex LE IMPRESSION: *No DVT demonstrated in the left lower extremity. *Prepatellar fluid collection which may represent prepatellar bursitis, a prepatellar hematoma or in the correct clinical setting a developing abscess though the collection looks homogeneously anechoic and is less likely to represent an infected fluid collection.
--- NOTE | ~2022-09-06 | XR_ITS ---
EXAMINATION: XR KNEE, LEFT CLINICAL INFORMATION: Pain and swelling. No injury. COMPARISON: None TECHNIQUE: Four views of the left knee. FINDINGS: A suprapatellar bursal effusion is suggested on the lateral view. No acute appearing fractures or subluxations are noted. No arthropathic changes visualized. The oblique view demonstrates a 1 mm where corticated ossific/calcific body projected along the lateral aspect of the left knee which may represent an incidental vascular calcification. This finding does not have the appearance of an acute fracture. The frontal view suggests that this finding resides over the left parasagittal posterior aspect of the knee. XR/XR knee LT 3V IMPRESSION: *Left knee effusion. No acute fractures.
[2022-09-06 16:10] VITALS: BP 141/66; PULSE 82; RESP 18; TEMP 36.7; O2SAT 99; BMI 28.7
--- NOTE | 2022-09-06 16:36 | ED_ITS ---
HPI - Extremity Problem General Chief complaint: Extremity Problem Stated complaint: left leg pain Time Seen by Provider: 09/06/22 16:23 Source: patient Mode of arrival: ambulatory Limitations: no limitations History of Present Illness HPI Narrative: 47 yo female with history of asthma here with one week of left knee pain/swelling. No injury or trauma. NO associated redness, warmth, tingling, numbness. Related Data Home Medications Medication Instructions Recorded Confirmed carbamazepine 200 mg 200 mg PO 11/05/20 11/19/21 capsule,extended release [id number] levetiracetam 500 mg tablet 1,500 mg PO BID 11/05/20 03/18/22 phenobarbital 32.4 mg tablet 32.4 mg PO 11/05/20 11/19/21 lansoprazole 30 mg capsule,delayed 30 mg PO DAILY 11/12/20 03/18/22 release (Prevacid) zinc 50 mg tablet 50 mg PO DAILY 03/17/22 03/18/22 Previous Rx's Medication Instructions Recorded fluticasone propionate 50 1 spray intranasal DAILY 10 days 11/11/21 mcg/actuation nasal #150 mL spray,suspension (Flonase Allergy Relief) cholecalciferol (vitamin D3) 50 50 mcg PO DAILY #90 caps 12/13/21 mcg (2,000 unit) capsule amoxicillin 500 mg capsule 500 mg PO Q8H #30 caps 03/17/22 meloxicam 15 mg tablet 15 mg PO DAILY #14 tabs 03/17/22 benzonatate 100 mg capsule 100 mg PO TID PRN cough #14 caps 03/18/22 sumatriptan succinate 50 mg tablet 50 mg PO Q2-4H PRN migraine 03/18/22 headache #14 tabs oseltamivir 75 mg capsule (Tamiflu) 75 mg PO BID 5 days #10 caps 03/19/22 fexofenadine 180 mg tablet 180 mg PO DAILY #90 tabs 07/08/22 (Allergy Relief (fexofenadine)) albuterol sulfate 90 mcg/actuation 2 puff inhalation Q4-6H PRN for 08/11/22 aerosol inhaler wheezing #8.5 ea montelukast 10 mg tablet 10 mg PO DAILY 90 days #90 tabs 08/31/22 ibuprofen 600 mg tablet 600 mg PO Q6H PRN pain #30 tabs 09/06/22 Allergies Allergy/AdvReac Type Severity Reaction Status Date / Time vancomycin [VANCOMYCIN] Allergy Severe ANAPHYLAXIS Verified 03/18/22 05:10 nitrofurantoin Allergy Intermediate Rash Verified 03/18/22 05:10 [From Macrobid] fluconazole [Diflucan] Allergy Unknown anaphylaxis Verified 03/18/22 05:10 pantoprazole [Protonix] Allergy Unknown anaphylaxis Verified 03/18/22 05:10 phenytoin [Dilantin] Allergy Unknown hives Verified 03/18/22 05:10 Review of Systems Review of Systems: Yes all other systems are reviewed and are negative Constitutional: Constitutional: Reports no additional constitutional complaints, Denies body ache(s), Denies chills, Denies fever(s), Denies headache(s) and Denies weakness Eyes: Eyes: Reports no additional eye complaints and Denies change in vision ENT: Reports system reviewed and no additional complaints, except as documented, Denies dizziness, Denies headache(s), Denies nasal congestion, Denies nasal discharge and Denies neck pain Cardiovascular: Cardiovascular: Reports no additional cardiovascular complaints, Denies chest pain, Denies leg edema and Denies dyspnea Respiratory: Respiratory: Reports no additional respiratory complaints, Denies cough and Denies dyspnea Gastrointestinal: Gastrointestinal: Reports no additional gastrointestinal complaints, Denies abdominal pain, Denies diarrhea, Denies nausea and Denies vomiting Genitourinary: Genitourinary: Reports no additional female genitourinary complaints and Denies urinary incontinence Musculoskeletal: Musculoskeletal: Reports no additional musculoskeletal complaints, Denies back pain, Reports arthralgias, Reports joint swelling, Denies neck pain, Denies numbness and Denies tingling Integumentary/Breasts: Skin/Breast: Reports system reviewed and no additional complaints, except as docu and Denies rash Neurologic: Reports system reviewed and no additional complaints, except as documented, Denies Abnormal speech present, Denies dizziness, Denies headache(s), Denies numbness, Denies tingling and Denies weakness [facility] Past Medical History Attestation statement: The following information was validated with the patient. Source: old records reviewed and nursing notes reviewed Medical History Amenorrhea Anxiety Asthma PAO II (cervical intraepithelial neoplasia II) Complex partial seizure GERD (gastroesophageal reflux disease) Head trauma HPV in female PUD (peptic ulcer disease) Tobacco abuse Vitamin D deficiency Surgical History Cavernous hemangioma of brain History of removal of ovarian cyst History of tubal ligation Family History Family History Father Parkinson disease Stroke CVD (cardiovascular disease) TIA (transient ischemic attack) Mother Non Hodgkin's lymphoma Hypertension Paternal Aunt Ovarian cancer Paternal Uncle Pancreatic cancer Social History Social History Housing: House Alcohol intake: never Patient Tobacco Use Status: Former Tobacco user Tobacco use type: Cigarette Cigarette Packs Per Day: 0.3 Cigarettes Per Day: 6.0 e-Cigarette/Vaping Use: Never Used Second Hand Smoke Exposure: No Advance Directives: Yes Advance Directives on File: Yes Advance Directives Date on File: 08/23/21 Current occupational status: employed Physical Exam Vital Signs: Vital Signs: Last Vital Signs Temp 98.0 F 09/06/22 16:10 Pulse 82 09/06/22 16:10 Resp 18 09/06/22 16:10 BP 141/66 H 09/06/22 16:10 Pulse Ox 99 09/06/22 16:10 O2 Del Method 09/06/22 16:10 BMI result Body Mass Index 28.7 Const: General: cooperative, healthy appearing, comfortable and no acute distress Orientation/consciousness: patient oriented x3 Limitations: no limitations HEENT: Head: Yes normal to inspection Ears: hearing grossly normal bilaterally General nose exam: Normal external nose present Face and sinus: Yes normal facial exam Mouth: Normal oral and palatal mucosa present Throat: Yes posterior oropharynx normal Eyes: General: appearance normal, both eyes and all related structures Pupils: Equal, round and reactive pupils present Neck: Neck: Yes normal visual inspection Chest: Chest palpation & inspection: normal inspection of the chest Resp: Effort & Inspection: normal respiratory effort Auscultation: clear to auscultation bilaterally Cardio: Rate: regular rate Rhythm: regular rhythm Peripheral pulses: Peripheral pulses 2+ throughout GI: Inspection: Yes normal to inspection Palpation (GI): Soft to palpation and nontender Auscultation: normal bowel sounds Back/Spine/Pelvis: Thoracic/Lumbar Spine: thoracic and lumbar spine normal to inspection Skin: General skin exam: no rashes or lesions noted Neuro: General: patient oriented x3, no focal motor deficits and normal sensation to monofilament Cranial nerves: Yes Equal, round and reactive pupils present Cognition (Neuro): normal cognition Speech: No Abnormal speech present Gait exam (Neuro): Normal gait present Motor exam (neuro): 5/5 motor strength present throughout Extrem: Other: Tenderness and swelling to medial joint line and posterior left knee No ligamental laxity NV intact distally. No wamrth or redness. FROM General: Yes normal to inspection Course Course Course Narrative: X-ray of the left knee shows suprapatellar bursitis. Ultrasound is negative for DVT or Valdez cyst. Does remark on the fluid collection seen within the bursa. There is no redness or warmth or reports of fever to suggest infection additionally patient has no history of IV drug abuse, immunocompromised state to put her at risk for this. Patient was placed in an Jonh wrap. Reviewed rice. Reviewed worrisome signs and symptoms of when to return to the emergency room. Comfortable plan for discharge home. MDM - Extremity (Nontraumatic) MDM Narrative Medical decision making narrative: 47 yo female here with 1 week of left knee pain and swelling with no known injury or trauma No evidence of cellulitis Likely underlying OA Consider posterior DVT or bakers cyst with posterior knee pain and swelling. No risk factors.. Medical Records Attestation: I reviewed the patient's medical records. Imaging Data Venous US: Attestation: I personally reviewed and interpreted this imaging study as follows: Radiologist's impression: *No DVT demonstrated in the left lower extremity. *Prepatellar fluid collection which may represent prepatellar bursitis, a prepatellar hematoma or in the correct clinical setting a developing abscess though the collection looks homogeneously anechoic and is less likely to represent an infected fluid collection. knee xray: Attestation: I personally reviewed and interpreted this imaging study as follows: Radiologist's impression: [address] [address] XRay Report Signed Patient: Sheree Aguirre MR#: [id number] : 1975 Acct:[id number] Age/Sex: 47 / F ADM Date: 09/06/22 Loc: HO.ED Attending Dr: Ordering Physician: Pat Jennings NP Date of Service: 09/06/22 Procedure(s): XR knee LT 3V Accession Number(s): [id number] cc: Pat Jennings NP~ EXAMINATION: XR KNEE, LEFT CLINICAL INFORMATION: Pain and swelling. No injury.? COMPARISON: None? TECHNIQUE: Four views of the left knee. FINDINGS: A suprapatellar bursal effusion is suggested on the lateral view. No acute appearing fractures or subluxations are noted. No arthropathic changes visualized. The oblique view demonstrates a 1 mm where corticated ossific/calcific body projected along the lateral aspect of the left knee which may represent an incidental vascular calcification. This finding does not have the appearance of an acute fracture. The frontal view suggests that this finding resides over the left parasagittal posterior aspect of the knee.? XR/XR knee LT 3V IMPRESSION: *Left knee effusion. No acute fractures Discharge Plan Discharge Clinical Impression: Bursitis of left knee Patient Disposition: Home, Self-Care Instructions: Knee Bursitis (ED) Additional Instructions: Ice, elevation, Jonh wrap for comfort follow up with her primary care doctor for any persistent symptoms as you might need to see orthopedic Prescriptions: New ibuprofen 600 mg tablet 600 mg PO Q6H PRN (Reason: pain) Qty: 30 0RF No Action fluticasone propionate [Flonase Allergy Relief] 50 mcg/actuation spray,suspension 1 spray intranasal DAILY 10 Days Qty: 150 5RF Rx Instructions: administer into each nostril cholecalciferol (vitamin D3) 50 mcg (2,000 unit) capsule 50 mcg PO DAILY Qty: 90 0RF sumatriptan succinate 50 mg tablet 50 mg PO Q2-4H PRN (Reason: migraine headache) Qty: 14 11RF Rx Instructions: do not exceed 4 doses per 24 hrs oseltamivir [Tamiflu] 75 mg capsule 75 mg PO BID 5 Days Qty: 10 0RF fexofenadine [Allergy Relief (fexofenadine)] 180 mg tablet 180 mg PO DAILY Qty: 90 2RF albuterol sulfate 90 mcg/actuation HFA aerosol inhaler 2 puff inhalation Q4-6H PRN (Reason: for wheezing) Qty: 8.5 0RF montelukast 10 mg tablet 10 mg PO DAILY 90 Days Qty: 90 0RF benzonatate 100 mg capsule 100 mg PO TID PRN (Reason: cough) Qty: 14 0RF lansoprazole [Prevacid] 30 mg capsule,delayed release(DR/EC) 30 mg PO DAILY phenobarbital 32.4 mg tablet 32.4 mg PO carbamazepine 200 mg capsule, ER multiphase 12 hr 200 mg PO levetiracetam 500 mg tablet 1,500 mg PO BID zinc 50 mg tablet 50 mg PO DAILY amoxicillin 500 mg capsule 500 mg PO Q8H Qty: 30 0RF meloxicam 15 mg tablet 15 mg PO DAILY Qty: 14 0RF Referrals: Po,Myranda Palencia MD [Primary Care Provider] - 5 days
== END 2022-09-06 18:21 | disposition home or self-care (01) ==
PROVIDERS: Emergency Provider Emergency Medicine; PCP Internal Medicine
DX: M70.52 Other bursitis of knee, left knee (principal); M79.662 Pain in left lower leg; R60.0 Localized edema; Z79.899 Other long term (current) drug therapy; Z87.891 Personal history of nicotine dependence
CPT/HCPCS: 73562; 93971; 99284

== ENCOUNTER 2022-11-27 12:29 | Outpatient (REF) | payer MEDICARE, MEDICAID, SELFPAY | END 2022-11-27 12:30 | disposition home or self-care (01) | LOC: HO.HOSX 12:29 | PROVIDERS: Visit Provider Physician Assistant | DX: Z13.89 Encounter for screening for other disorder (principal) ==

== ENCOUNTER 2023-02-22 20:52 | Emergency (ER) | payer MEDICARE, MEDICAID, SELFPAY ==
[2023-02-22 21:03] VITALS: BP 131/79; PULSE 88; RESP 16; TEMP 36.8; O2SAT 97; BMI 31.0
--- NOTE | 2023-02-22 22:05 | ED.GENADULT ---
HPI - General Adult General Chief complaint: Allergic Reaction Stated complaint: ? med reaction, mouth swelling Time Seen by Provider: 02/22/23 21:53 Source: patient, RN notes reviewed and old records reviewed Mode of arrival: ambulatory Limitations: no limitations History of Present Illness HPI narrative: 47-year-old female presents for evaluation with cold sore to the corner of her mouth. She 1st noticed a small cold sore about 5 days ago. She has been using Abreva and ?medicated chapstick which did not help her symptoms. She states that she went to urgent care yesterday and was prescribed ?mupirocin because they thought it was a staph infection. ? She reports that she use the mupirocin ointment once and her face seemed to swell up with the area Denies any lesions inside her mouth Related Data Home Medications Medication Instructions Recorded Confirmed levetiracetam 500 mg tablet 1,500 mg PO BID 11/05/20 10/16/22 phenobarbital 32.4 mg tablet 32.4 mg PO 11/05/20 10/16/22 lansoprazole 30 mg capsule,delayed 30 mg PO DAILY 11/12/20 10/16/22 release (Prevacid) zinc 50 mg tablet 50 mg PO DAILY 03/17/22 10/16/22 Previous Rx's Medication Instructions Recorded cholecalciferol (vitamin D3) 50 50 mcg PO DAILY #90 caps 12/13/21 mcg (2,000 unit) capsule meloxicam 15 mg tablet 15 mg PO DAILY #14 tabs 03/17/22 sumatriptan succinate 50 mg tablet 50 mg PO Q2-4H PRN migraine 03/18/22 headache #14 tabs fexofenadine 180 mg tablet 180 mg PO DAILY #90 tabs 07/08/22 (Allergy Relief (fexofenadine)) ibuprofen 600 mg tablet 600 mg PO Q6H PRN pain #30 tabs 09/06/22 fluticasone propionate 50 1 spray intranasal DAILY 10 days 01/12/23 mcg/actuation nasal #150 mL spray,suspension (Flonase Allergy Relief) albuterol sulfate 90 mcg/actuation 2 puff inhalation Q4-6H PRN for 02/10/23 aerosol inhaler wheezing #8.5 ea carbamazepine 200 mg See Rx Instructions PO .COMPLEX 30 02/10/23 capsule,extended release [id number] days #150 caps montelukast 10 mg tablet 10 mg PO DAILY 90 days #90 tabs 02/17/23 prednisone 20 mg tablet 40 mg PO DAILY #10 tabs 02/22/23 valacyclovir 1 gram tablet 1,000 mg PO TID #21 tabs 02/22/23 (Valtrex) Allergies Allergy/AdvReac Type Severity Reaction Status Date / Time vancomycin [VANCOMYCIN] Allergy Severe ANAPHYLAXIS Verified 02/22/23 21:08 nitrofurantoin Allergy Intermediate Rash Verified 02/22/23 21:08 [From Macrobid] fluconazole [Diflucan] Allergy Unknown anaphylaxis Verified 02/22/23 21:08 pantoprazole [Protonix] Allergy Unknown anaphylaxis Verified 02/22/23 21:08 phenytoin [Dilantin] Allergy Unknown hives Verified 02/22/23 21:08 Review of Systems Constitutional: Constitutional: Reports as per HPI, Denies chills, Denies fatigue and Denies fever(s) ENT: Reports other (Lesion to the corner of the mouth) Cardiovascular: Cardiovascular: Denies chest pain and Denies dyspnea Respiratory: Respiratory: Denies cough and Denies dyspnea Gastrointestinal: Gastrointestinal: Denies abdominal pain, Denies constipation and Denies vomiting Genitourinary: Genitourinary: Denies dysuria Integumentary/Breasts: Skin/Breast: Reports sores Neurologic: Denies focal weakness Endocrine: Endocrine: Denies fatigue PMFSH Past Medical History Medical History Amenorrhea Anxiety Asthma PAO II (cervical intraepithelial neoplasia II) Complex partial seizure GERD (gastroesophageal reflux disease) Head trauma HPV in female PUD (peptic ulcer disease) Tobacco abuse Vitamin D deficiency Surgical History Cavernous hemangioma of brain History of removal of ovarian cyst History of tubal ligation Family History Family History Father Parkinson disease Stroke CVD (cardiovascular disease) TIA (transient ischemic attack) Mother Non Hodgkin's lymphoma Hypertension Paternal Aunt Ovarian cancer Paternal Uncle Pancreatic cancer Social History Social History Housing: House Alcohol intake: never Patient Tobacco Use Status: Former Tobacco user Tobacco use type: Cigarette Cigarette Packs Per Day: 0.3 Cigarettes Per Day: 6.0 e-Cigarette/Vaping Use: Never Used Second Hand Smoke Exposure: No Advance Directives: Yes Advance Directives on File: Yes Advance Directives Date on File: 08/23/21 Current occupational status: employed Physical Exam ED Vital Signs: Vital Signs - 24 hr 02/22/23 21:03 Temperature 98.2 F Pulse Rate 88 Respiratory Rate 16 Blood Pressure 131/79 Pulse Oximetry 97 Oxygen Delivery Method Room Air BMI result Body Mass Index 31.0 Const General: healthy appearing, comfortable, no acute distress, alert and awake Nutritional Appearance: well nourished Orientation/consciousness: patient oriented x3 HENMT Other: The patient has 3 small vesicles to the corner of the mouth there are crusted over on the right. No surrounding edema, erythema. No intraoral lesions. Head: Yes normocephalic and Yes atraumatic Mouth: Normal oral and palatal mucosa present (No intraoral lesions) Throat: Yes posterior oropharynx normal Eyes Eyelids: Yes eyelids normal Conjunctivae: conjunctivae normal Sclerae: sclerae normal Corneas: corneas normal Pupils: Equal, round and reactive pupils present EOM: EOMs intact bilaterally Neck Neck: Yes full ROM Resp Effort & Inspection: normal respiratory effort, able to speak in complete sentences, no audible wheezes and not labored Auscultation: clear to auscultation bilaterally Cardio Rate: regular rate Rhythm: regular rhythm GI Inspection: No distended Palpation (GI): Soft to palpation, not firm, nontender, no guarding and not rigid Auscultation: normoactive bowel sounds Neuro General: patient oriented x3 Cranial nerves: Yes CN's II-XII intact bilaterally, Yes Equal, round and reactive pupils present and Yes Bilaterally intact EOM present Cognition (Neuro): normal cognition Extrem Other: Moving all extremities well without any obvious deformities Medical Decision Making Medical Decision Making MDM Narrative: Patient has a cold sore to the cornea mouth on the right, there is no erythema to suggest cellulitis. Patient reports history of similar sores in the past that were treated with valacyclovir. The patient reports being stressed due to an upcoming vacation. This is likely because of the outbreak. Will treat with valacyclovir and prednisone Differential Diagnosis Herpes Cold sore Cellulitis Impetigo Acute rash Discharge Plan Discharge Clinical Impression: Cold sore Patient Disposition: Home, Self-Care Instructions: Oral Herpes Simplex Virus Infections (ED) Additional Instructions: Take valacyclovir 3 times daily for 1 week. Use prednisone 40 mg daily for the next 5 days Prescriptions: New valacyclovir [Valtrex] 1 gram tablet 1,000 mg PO TID Qty: 21 0RF prednisone 20 mg tablet 40 mg PO DAILY Qty: 10 0RF No Action cholecalciferol (vitamin D3) 50 mcg (2,000 unit) capsule 50 mcg PO DAILY Qty: 90 0RF sumatriptan succinate 50 mg tablet 50 mg PO Q2-4H PRN (Reason: migraine headache) Qty: 14 11RF Rx Instructions: do not exceed 4 doses per 24 hrs fexofenadine [Allergy Relief (fexofenadine)] 180 mg tablet 180 mg PO DAILY Qty: 90 2RF fluticasone propionate [Flonase Allergy Relief] 50 mcg/actuation spray,suspension 1 spray intranasal DAILY 10 Days Qty: 150 5RF Rx Instructions: administer into each nostril albuterol sulfate 90 mcg/actuation HFA aerosol inhaler 2 puff inhalation Q4-6H PRN (Reason: for wheezing) Qty: 8.5 0RF carbamazepine 200 mg capsule, ER multiphase 12 hr See Rx Instructions PO .COMPLEX 30 Days Qty: 150 0RF Rx Instructions: Take 2 capsules in the morning and 3 capsules in the evening orally; montelukast 10 mg tablet 10 mg PO DAILY 90 Days Qty: 90 0RF ibuprofen 600 mg tablet 600 mg PO Q6H PRN (Reason: pain) Qty: 30 0RF lansoprazole [Prevacid] 30 mg capsule,delayed release(DR/EC) 30 mg PO DAILY phenobarbital 32.4 mg tablet 32.4 mg PO levetiracetam 500 mg tablet 1,500 mg PO BID zinc 50 mg tablet 50 mg PO DAILY meloxicam 15 mg tablet 15 mg PO DAILY Qty: 14 0RF
== END 2023-02-22 22:28 | disposition home or self-care (01) ==
PROVIDERS: Emergency Provider Emergency Medicine Emergency Medical Services; PCP Internal Medicine
DX: B00.1 Herpesviral vesicular dermatitis (principal)
CPT/HCPCS: 99282

== ENCOUNTER 2023-06-24 13:42 | Outpatient (AMB) | payer MEDICARE, MEDICAID, SELFPAY ==
[2023-06-24 13:44] VITALS: BP 132/68; PULSE 80; O2SAT 98; BMI 34.8
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
== END 2023-06-24 14:36 | disposition home or self-care (01) ==
PROVIDERS: PCP Internal Medicine; Visit Provider Internal Medicine
DX: K21.9 Gastro-esophageal reflux disease without esophagitis (principal); J45.909 Unspecified asthma, uncomplicated; E66.9 Obesity, unspecified; Z68.34 Body mass index [BMI] 34.0-34.9, adult; F41.1 Generalized anxiety disorder; Z72.0 Tobacco use
CPT/HCPCS: 99214

== ENCOUNTER 2023-06-24 14:43 | Outpatient (REF) | payer MEDICARE, MEDICAID, SELFPAY ==
[2023-06-24 15:16] LABS: MANUAL DIFF FLAG NO
[2023-06-24 15:26] LABS: Basophils Absolute Auto 0.1 X10*3/uL (0.0-0.2); Basophils Percent Auto 0.8 % (0-2); Eosinophils Absolute Auto 0.5 X10*3/uL (0.0-0.4); Eosinophils Percent Auto 6.8 % (0-4); Hematocrit 37.5 % (37.0-47.0); Hemoglobin 12.5 g/dl (12.0-16.0); Imm Gran Abs Auto 0.03 X10*3/uL (0.00-0.03); Imm Gran Pct Auto 0.5 % (0.0-0.4); Lymphocytes Absolute Auto 2.2 X10*3/uL (1.2-4.9); Mean Corpuscular HGB Conc 33.3 g/dl (31.0-35.0); Mean Corpuscular Hemoglobin 29.2 pg (27.0-33.0); Mean Corpuscular Volume 87.6 fL (80.0-98.0); Mean Platelet Volume 8.4 fL (9.4-12.3); Monocytes Absolute Auto 0.5 X10*3/uL (0.1-1.2); Neutrophils Absolute Auto 3.4 x10*3/uL (2.0-8.3); Neutrophils Percent Auto 50.9 % (45-73); Platelet Count 377 X10*3/uL (160-400); Red Blood Count 4.28 X10*6/uL (4.20-5.50); Red Cell Distribution Width 14.2 % (11.0-16.0); White Blood Count 6.7 X10*3/uL (4.8-10.8)
[2023-06-24 16:12] LABS: Alanine Aminotransferase 14 U/L (0-31); Albumin Level 4.1 g/dL (3.5-5.0); Alkaline Phosphatase 103 U/L (39-117); Anion Gap 11 (12-20); Aspartate Amino Transferase 15 U/L (5-31); Bilirubin Total 0.2 mg/dL (0.0-1.0); Blood Urea Nitrogen 8 mg/dL (9-16); Calcium 9.4 mg/dL (8.4-10.2); Carbon Dioxide 26 mmol/L (22-29); Chloride 102 mmol/L (96-108); Cholesterol 201 mg/dL; Estimated Glomerular Filt Rate > 60; Glucose Random 84 mg/dL (60-115); HDL Cholesterol 60 mg/dL; LDL Cholesterol Calculated 115 mg/dl; Potassium 4.4 mmol/L (3.3-5.1); Sodium 135 mmol/L (135-145); Total Protein 7.7 g/dL (6.5-8.0); Triglycerides 131 mg/dL
[2023-06-24 16:15] LABS: Carbamazepine Tegretol 9.6 mcg/mL (5.0-12.0)
[2023-06-24 16:30] LABS: Vitamin D 25-OH Total 22.3 ng/mL (>30)
[2023-06-24 16:39] LABS: Folate 2.8 ng/mL (> or = 4.0); Vitamin B12 292 pg/mL (200-900)
== END 2023-06-24 14:44 | disposition home or self-care (01) ==
LOC: HO.LAB 14:43
PROVIDERS: PCP Internal Medicine; Visit Provider Internal Medicine
DX: G40.209 Localization-related (focal) (partial) symptomatic epilepsy and epileptic syndromes with complex partial seizures, not intractable, without status epilepticus (principal); E78.00 Pure hypercholesterolemia, unspecified; E55.9 Vitamin D deficiency, unspecified
CPT/HCPCS: 36415; 80053; 80061; 80156; 80184; 82306; 82607; 82746; 83735; 84439; 84443; 85025

== ENCOUNTER 2023-07-22 15:13 | Outpatient (REF) | payer MEDICARE, MEDICAID, SELFPAY | END 2023-07-22 15:14 | disposition home or self-care (01) | LOC: HO.MAMMO 15:13 | PROVIDERS: PCP Internal Medicine; Visit Provider Internal Medicine | DX: Z12.31 Encounter for screening mammogram for malignant neoplasm of breast (principal) | CPT/HCPCS: 77063; 77067 ==

== ENCOUNTER → 2023-07-22 15:30 | Outpatient (BNV) | payer MEDICARE, MEDICAID, SELFPAY | PROVIDERS: PCP Internal Medicine; Visit Provider Radiology Diagnostic Radiology | DX: Z12.31 Encounter for screening mammogram for malignant neoplasm of breast (principal) | CPT/HCPCS: 77063; 77067 ==

== ENCOUNTER 2023-08-11 12:32 | Emergency (ER) | payer MEDICARE, MEDICAID, SELFPAY ==
[2023-08-11 12:38] VITALS: BP 129/84; PULSE 91; RESP 16; TEMP 36.7; O2SAT 97; BMI 34.8
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
--- OUTSIDE RECORDS SUMMARY | 2023-08-11 13:34 | XMS_ITS | Continuity of Care Document ---
Author Name Unknown Organization [facility] Address Unknown Care Team Providers Care Special Education Teaching Assistant Name Role Phone Po Myranda ROLAND Primary Care Physician [facility]counter [facility] Date(s): 09/20/21 - 10/20/21 [facility] Attending Physician: AdmtrMonse Allergies, Adverse Reactions, Alerts Substance Reaction Severity Status vancomycin Active Dilantin Active Protonix Active Latex BREAKS OUT Active Morphine Sulfate severe abdominal and chest pain Active Immunizations Given and Recorded Vaccine Date Status Refusal Reason influenza virus vaccine, inactivated 09/12/17 Give n influenza virus vaccine, inactivated 08/15/09 Give n influenza virus vaccine, inactivated 1 09/14/08 Gi taya FluLaval (oldterm) 09/06/10 Given influ virus vac, H1N1, inactive(oldterm) 09/04/09 Given Meningococcal Polysaccharide Vaccine 2 08/23/09 Gi taya Pneumococcal Vaccine (oldterm) 06/12/08 Given Tet/Diphth/Acel, Pertussis (oldterm) 3 06/12/08 Gi taya 1Admin Note: nirav cohnofi pasteur 2Admin Note: Sanofi Pasteur Diuent Lot # [id number] Exp: 01/05/2012 3Admin Note: Sanofi Pasteur Medications acetaminophen 650 mg oral tablet, extended release 2 tablet = 1,300 mg, By Mouth, Every 8 hours, 0 Refills, Maintenance, 04/13/19 12:47:00 EDT Start Date: 04/13/19 Status: Ordered Advair Diskus 100 mcg-50 mcg inhalation powder 1, puffs, Inhalation, 2 times a day, Refills 0, Maintenance, 03/05/18 16:30:20 EDT Start Date: 03/05/18 Status: Ordered Sandra 180 mg oral tablet 1 tablet = 180 mg, By Mouth, Daily at bedtime, # 30 tablet, 1 Refills, Maintenance Start Date: 12/19/10 Stop Date: 02/17/11 Status: Ordered carbamazepine 200 mg oral capsule, extended release See Instructions, TAKE 2 CAPSULES BY MOUTH IN THE MORNING AND 3 CAPSULES BY MOUTH IN THE EVENING, #450 capsule, 1 Refills, Maintenance, [id number], 179, cm, 03/16/21 12:20:00 EDT, Height, 94.2,kg, 03/16/21 12:24:00 EDT, Dry Weight Start Date: 05/30/21 Status: Ordered Compression Stockings See Instructions, # 2 pair, Maintenance, surgical, calf length 20-30 mm Hg, 03/05/18 15:52:33 EDT, Compound Start Date: 03/05/18 Status: Ordered ibuprofen 600 mg oral tablet 600 mg, 1, tablet, By Mouth, Every 6 hours, Refills 0, Maintenance, 04/13/19 12:46:24 EDT Start Date: 04/13/19 Status: Ordered Keppra 500 mg oral tablet 3 tablet = 1,500 mg, By Mouth, 2 times a day, BRAND NAME Medically necessary. No Substitution, # 540 tablet, 3 Refills, Maintenance, 12/06/20 15:22:00 EST, [facility]/pharmacy #[id number], 179, cm, 12/08/19 15:08:00 EST, Height Start Date: 12/06/20 Stop Date: 12/01/21 Status: Ordered PHENobarbital 32.4 mg oral tablet See Instructions, 1 tablet am and 2 tablets pm. MassPat checked, # 90 tablet, 3 Refills, Maintenance, 06/20/21 16:47:00 EDT, [facility]/pharmacy #[id number], 179, cm, 03/16/21 12:20:00 EDT, Height, 94.2, kg, 03/16/21 12:24:00 EDT, Dry Weight Start Date: 06/20/21 Status: Ordered ProAir HFA 90 mcg/inh inhalation aerosol with adapter 2, puffs, Inhalation, 4 times a day, Refills 0, Maintenance, 03/05/18 16:30:05 EDT Start Date: 03/05/18 Status: Ordered Singulair 10 mg oral tablet 1 tablet = 10 mg, By Mouth, Daily at bedtime, # 30 tablet, 5 Refills, Maintenance Start Date: 10/14/10 Stop Date: 04/12/11 Status: Ordered tylenol 1,000mg tylenol 1,000mg, Refills 0, Maintenance, 04/13/19 12:45:54 EDT, Compound Start Date: 04/13/19 Status: Ordered vitamin b vitamin b, Refills 0, Maintenance, 02/08/18 13:25:50 EDT, Compound Start Date: 02/08/18 Status: Ordered Vitamin D3 2000 intl units oral capsule 1 capsule, By Mouth, Daily, # 30 capsule, 11 Refills, [email or web address] #[id number], 179, cm, 03/16/21 12:20:00 EDT, Height, 94.2, kg, 03/16/21 12:24:00 EDT, Dry Weight Start Date: 09/20/21 Status: Ordered Vitamin Super B complex Vitamin Super B complex, Refills 0, Maintenance, 12/05/20 15:47:00 EST, Supply Start Date: 12/05/20 Status: Ordered Problem List Condition Effective Dates Status Health Status Inform ant Acne(Confirmed) Active Adjustment disorder with mix ed anxiety and depressed mood(Confirmed) Active Allergy(Confirmed) 06/08/08 Active Asthma(Confirmed) 05/10/08 Active Depressive Disorder, Not Els ewhere Classified(Confirmed) Active FH - Family history(Confirmed) 1 11/21/08 Active Furuncle of neck(Confirmed) Active Gastric reflux(Confirmed) 11/21/08 Active Seizure disorder(Confirmed) 05/10/08 Active SH - Social history(Confirmed) 2 11/21/08 Active Tobacco abuse(Confirmed) 05/10/08 Active Vitamin D deficiency(Confirmed) Active 1stroke, CAD, gout, hayfever 2student, 3 children, single, smokes one half pack of cigarettes a day, does not use alcohol Social History Social History Type Response Smoking Status Current every day sm oker; Tobacco user in household: Yes; Other: 7-8 ciggarettes/day mon-thurs, 1/2ppd fri, sat, sun; entered on: 09/11/17 Sex
--- OUTSIDE RECORDS SUMMARY | 2023-08-11 13:34 | XMS_ITS | Continuity of Care Document ---
Author Name Unknown Organization [facility] Address [address] [facility], [address] Floor, [address] [place] [phone]- Care Team Providers Care Make Up Operator Helper Name Role Phone Po Myranda ROLAND Primary Care Physician [facility]counter [facility] Date(s): 07/03/20 - 08/02/20 [facility] [address], [address], [address] [place] [phone]- [facility] Allergies, Adverse Reactions, Alerts Substance Reaction Severity [...] 3 06/12/08 Gi taya 1Admin Note: nirav sanofi pasteur 2Admin Note: Sanofi Pasteur Diuent Lot # [id number] Exp: 01/05/2012 3Admin Note: Sanofi Pasteur Medications [...] THE EVENING, #450 capsule, 1 Refills, Maintenance, [facility] #[id number], 179, cm, 12/08/19 15:08:00 EST, Height Start Date: 06/22/20 Status: Ordered Compression Stockings See Instructions, # [...] Substitution, # 540 tablet, 3 Refills, Maintenance, 08/16/19 10:19:59 EDT Start Date: 08/16/19 Stop Date: 08/10/20 Status: Ordered PHENobarbital 32.4 mg oral tablet See Instructions, 1 tablet am and 2 tablets pm., # 90 tablet, 5 Refills, Maintenance, 01/23/20 10:26:00 EDT, [facility] #[id number], MassPAT checked., 179, cm, 12/08/19 15:08:00 EST, Height Start Date: 01/23/20 Status: Ordered PHENobarbital 32.4 mg oral tablet See Instructions, 1 tablet am and 2 tablets pm., # 90 tablet, 0 Refills, Maintenance, 01/21/20 13:07:00 EDT, MassPAT checked. Start Date: 01/21/20 Status: Ordered ProAir HFA 90 mcg/inh inhalation [...] EDT, Compound Start Date: 02/08/18 Status: Ordered VITAMIN D3 2000UNIT CAPSULES See Instructions, # 30 capsule, Refills 5 Tot. Refills 5, TAKE 1 CAPSULE BY MOUTH DAILY FOR 30 DAYS, [facility] #[id number] Start Date: 09/06/19 Status: Ordered Problem List Condition Effective Dates [...] Type Response Smoking Status Current every day romeo oker; Tobacco user in household: Yes; Other: 7-8 ciggarettes/day mon-thurs, 1/2ppd fri, sat, sun; entered on: 09/11/17 Sex
--- OUTSIDE RECORDS SUMMARY | 2023-08-11 13:34 | XMS_ITS | Continuity of Care Document ---
Author Name Unknown Organization [facility] Address Unknown Care Team Providers Care Line Crewman Name Role Phone Myranda Benitez MD Primary Care Physician [place] [facility] [place] 10/20/21 [facility] Attending Physician: Shira De La oRsa Admitting Physician: Shira De La Rosa Referring Physician: Myranda Benitez MD Allergies, Adverse Reactions, Alerts Substance Reaction Severity Status vancomycin Active Protonix Active Morphine Sulfate severe abdominal and chest pain Active Dilantin Active Latex BREAKS OUT Active Immunizations Given and Recorded Vaccine Date [...] 2Admin Note: Sanofi Pasteur Diuent Lot # [id number] Exp: 01/05/2012 3Admin Note: Sanofi Pasteur Medications [...] #450 capsule, 1 Refills, Maintenance, [id number], 179, cm, 03/16/21 12:20:00 EDT, Height, 94.2,kg, [...] tablet, 3 Refills, Maintenance, 12/06/20 15:22:00 EST, [facility]/pharmacy #[id number], 179, cm, 12/08/19 15:08:00 EST, Height Start Date: 12/06/20 Stop Date: 12/01/21 Status: Ordered PHENobarbital 32.4 mg oral tablet See Instructions, 1 tablet am and 2 tablets pm. MassPat checked, # 90 tablet, 3 Refills, Maintenance, 06/20/21 16:47:00 EDT, [facility]/pharmacy #2339, 179, cm, 03/16/21 12:20:00 EDT, [...] Mouth, Daily, # 30 capsule, 11 Refills, [facility] #[id number], 179, cm, 03/16/21 12:20:00 EDT, Height, 94.2, [...]
--- OUTSIDE RECORDS SUMMARY | 2023-08-11 13:34 | XMS_ITS | Continuity of Care Document ---
Author Name Unknown Organization [facility] Address Unknown Care Team Providers Care Customer Field Representative Name Role Phone Po Myranda ROLAND Primary Care Physician [phone] Encounter [facility] [place] Date(s): 12/13/21 - 01/12/22 [facility] Allergies, Adverse Reactions, Alerts Substance Reaction Severity [...] 2Admin Note: Sanofi Pasteur Diuent Lot # [id number] Exp: 01/05/2012 3Admin Note: Sanofi Pasteur Medications [...] IN THE EVENING, #450 capsule, 1 Refills, [facility], 179, cm, 03/16/21 12:20:00 EDT, Height, 94.2, kg, 03/16/2112:24:00 EDT, Dry Weight Start Date: 11/26/21 Status: Ordered Compression Stockings See Instructions, # 2 pair, Maintenance, surgical, calf length 20-30 mm Hg, 03/05/18 15:52:33 EDT, Compound Start Date: 03/05/18 Status: Ordered ibuprofen 600 mg oral tablet 600 mg, 1, tablet, By Mouth, Every 6 hours, Refills 0, Maintenance, 04/13/19 12:46:24 EDT Start Date: 04/13/19 Status: Ordered Keppra 500 mg oral tablet 3 tablet, By Mouth, 2 times a day, X90 DAYS,INSTR:BRAND NAME MEDICALLY NECESSARY. NO SUBSTITUTION, # 540 tablet, 3 Refills, [facility], 179, cm, 03/16/21 12:20:00 EDT, Height, 94.2, kg, 03/16/2112:24:00 EDT, Dry Weight Start Date: 12/11/21 Status: Ordered PHENobarbital 32.4 mg oral tablet See Instructions, 1 tablet am and 2 tablets pm. MassPat checked, # 90 tablet, 5 Refills, Maintenance, 12/13/21 13:47:00 EST, [facility]/pharmacy #[id number], 179, cm, 03/16/21 12:20:00 EDT, Height, 94.2, kg, 03/16/21 12:24:00 EDT, Dry Weight Start Date: 12/13/21 Status: Ordered ProAir HFA 90 mcg/inh inhalation [...] Mouth, Daily, # 30 capsule, 11 Refills, [facility] #[id number], 179, cm, 03/16/21 12:20:00 EDT, Height, 94.2, [...]
--- OUTSIDE RECORDS SUMMARY | 2023-08-11 13:34 | XMS_ITS | Continuity of Care Document ---
Author Name Unknown Organization [facility] Address [address] [facility], [address] d Floor, [address] [place] [phone]- Care Team Providers Care Ship Manager Name Role Phone Po Myranda ROLAND Primary Care Physician [facility]counter [facility] Date(s): 04/09/21 - 05/09/21 [facility] [address], [address], [address] [place] [phone]- Allergies, Adverse Reactions, Alerts Substance Reaction Severity [...] 2Admin Note: Sanofi Pasteur Diuent Lot # [id number] Exp: 01/05/2012 3Admin Note: Sanofi Pasteur Medications [...] THE EVENING, #450 capsule, 1 Refills, Maintenance, [facility] #[id number], 179, cm, 12/08/19 15:08:00 EST, Height Start Date: 12/19/20 Status: Ordered Compression Stockings See Instructions, # [...] tablet, 3 Refills, Maintenance, 12/06/20 15:22:00 EST, [id number], 179, cm, 12/08/19 15:08:00 EST, Height Start Date: 12/06/20 Stop Date: 12/01/21 Status: Ordered PHENobarbital 32.4 mg oral tablet See Instructions, 1 tablet am and 2 tablets pm. MassPat checked, # 90 tablet, 1 Refills, Maintenance, 04/30/21 8:15:00 EDT, [id number], 179, cm, 03/16/21 12:20:00 EDT, Height, 94.2, kg, 03/16/21 12:24:00 EDT, Dry Weight Start Date: 04/30/21 Status: Ordered ProAir HFA 90 mcg/inh inhalation [...] Mouth, Daily, # 30 capsule, 11 Refills, Maintenance, 09/20/20 11:59:00 EST, [facility] #[id number], 179, cm, 12/08/19 15:08:00 EST, Height Start Date: 09/20/20 Status: Ordered Vitamin Super B complex Vitamin [...]
--- OUTSIDE RECORDS SUMMARY | 2023-08-11 13:34 | XMS_ITS | Continuity of Care Document ---
Author Name Unknown Organization [facility] Address [address] [facility], [address] d Floor, [address] [place] [phone]- Care Team Providers Care Bobcat Driver/Labor Name Role Phone Po Myranda ROLAND Primary Care Physician Encounter [facility] Date(s): 09/25/20 - 10/25/20 [facility] [address], [address], [address] [place] [phone]- Allergies, Adverse Reactions, Alerts Substance Reaction Severity [...] 2Admin Note: Sanofi Pasteur Diuent Lot # [id number] Exp: 01/05/2012 3Admin Note: Sanofi Pasteur Medications [...] IN THE EVENING, #450 capsule, 1 Refills, 09/25/20 16:15:00 EST, [id number], 179, cm, 12/08/19 15:08:00 EST, Height Start Date: 09/25/20 Status: Ordered Compression Stockings See Instructions, # [...] Medically necessary. No Substitution, # 540 tablet, 1 Refills, Maintenance, 09/25/20 16:15:00 EST, [facility], 179, cm, 12/08/19 15:08:00 EST, Height Start Date: 09/25/20 Stop Date: 03/24/21 Status: Ordered PHENobarbital 32.4 mg oral tablet See Instructions, 1 tablet am and 2 tablets pm., # 90 tablet, 0 Refills, Maintenance, 01/21/20 13:07:00 EDT, MassPAT checked. Start Date: 01/21/20 Status: Ordered PHENobarbital 32.4 mg oral tablet See Instructions, 1 tablet am and 2 tablets pm., # 90 tablet, 3 Refills, Maintenance, 09/25/20 16:16:00 EST, [id number], MassPAT checked., 179, cm, 12/08/19 15:08:00 EST, Height Start Date: 09/25/20 Status: Ordered ProAir HFA 90 mcg/inh inhalation [...] capsule, 11 Refills, Maintenance, 09/20/20 11:59:00 EST, [facility] #[id number], 179, cm, 12/08/19 15:08:00 EST, Height Start Date: 09/20/20 Status: Ordered VITAMIN D3 2000UNIT CAPSULES See Instructions, # 30 capsule, Refills 5 Tot. Refills 5, TAKE 1 CAPSULE BY MOUTH DAILY FOR 30 DAYS, [facility] #[id number] Start Date: 09/06/19 Status: Ordered Problem List [...]
--- OUTSIDE RECORDS SUMMARY | 2023-08-11 13:35 | XMS_ITS | Continuity of Care Document ---
Author Name Unknown Organization [facility] Address [address] [facility], 3[address] d Floor, [address] [place] [address]- Care Team Providers Care Truckload Checker Name Role Phone Po Myranda ROLAND Primary Care Physician [facility]counter [facility] Date(s): 04/29/21 - 05/29/21 [facility] [address], [address], [address] [place] [phone]- Allergies, Adverse Reactions, Alerts Substance Reaction Severity [...] 2Admin Note: Sanofi Pasteur Diuent Lot # [id number] Exp: 01/05/2012 3Admin Note: Sanofi Pasteur Medications [...] THE EVENING, #450 capsule, 1 Refills, Maintenance, [facility] #[id number], 179, cm, 12/08/19 15:08:00 EST, Height Start [...] capsule, 11 Refills, Maintenance, 09/20/20 11:59:00 EST, [facility] #[id number], 179, cm, 12/08/19 15:08:00 EST, Height Start [...]
--- OUTSIDE RECORDS SUMMARY | 2023-08-11 13:35 | XMS_ITS | Continuity of Care Document ---
Author Name Unknown Organization [facility] Address Unknown Care Team Providers Care Single Pointed Operator Name Role Phone Po Myranda ROLAND Primary Care Physician [phone] [place] [facility] [place] 07/20/21 [facility] Allergies, Adverse Reactions, Alerts Substance Reaction [...] 2Admin Note: Sanofi Pasteur Diuent Lot # [id number] Exp: 01/05/2012 3Admin Note: Sanofi Pasteur Medications [...] Refills, Maintenance Start Date: 12/19/10 Stop Date: 4/11/11 Status: Ordered carbamazepine 200 mg oral capsule, extended release See Instructions, TAKE 2 CAPSULES BY MOUTH IN THE MORNING AND 3 CAPSULES BY MOUTH IN THE EVENING, #450 capsule, 1 Refills, Maintenance, [facility], 179, cm, 03/16/21 12:20:00 EDT, Height, 94.2,kg, [...] tablet, 3 Refills, Maintenance, 12/06/20 15:22:00 EST, [facility]/pharmacy #[id number], 179, cm, 12/08/19 15:08:00 EST, Height Start Date: 12/06/20 Stop Date: 12/01/21 Status: Ordered PHENobarbital 32.4 mg oral tablet See Instructions, 1 tablet am and 2 tablets pm. MassPat checked, # 90 tablet, 3 Refills, Maintenance, 06/20/21 16:47:00 EDT, [facility]/pharmacy #2339, 179, cm, 03/16/21 12:20:00 EDT, Height, [...] capsule, 11 Refills, Maintenance, 09/20/20 11:59:00 EST, [facility] #[id number], 179, cm, 12/08/19 15:08:00 EST, Height Start [...]
--- OUTSIDE RECORDS SUMMARY | 2023-08-11 13:35 | XMS_ITS | Continuity of Care Document ---
Author Name Unknown Organization [facility] Address Unknown Care Team Providers Care Plaster Whittler Name Role Phone Po Myranda ROLAND Primary Care Physician Encounter [facility] [place] Date(s): 06/20/21 - 07/20/21 [facility] Allergies, Adverse Reactions, Alerts Substance Reaction [...] 2Admin Note: Sanofi Pasteur Diuent Lot # [id number] Exp: 01/05/2012 3Admin Note: Sanofi Pasteur Medications [...] #450 capsule, 1 Refills, Maintenance, [facility], 179, cm, 03/16/21 12:20:00 EDT, Height, 94.2,kg, [...] tablet, 3 Refills, Maintenance, 12/06/20 15:22:00 EST, [facility]/pharmacy #2339, 179, cm, 12/08/19 15:08:00 EST, Height Start Date: 12/06/20 Stop Date: 12/01/21 Status: Ordered PHENobarbital 32.4 mg oral tablet See Instructions, 1 tablet am and 2 tablets pm. MassPat checked, # 90 tablet, 3 Refills, Maintenance, 06/20/21 16:47:00 EDT, [facility]/pharmacy #2339, 179, cm, 03/16/21 [...] capsule, 11 Refills, Maintenance, 09/20/20 11:59:00 EST, [facility] #[id number], 179, cm, 12/08/19 15:08:00 EST, Height Start [...]
--- OUTSIDE RECORDS SUMMARY | 2023-08-11 13:35 | XMS_ITS | Continuity of Care Document ---
Author Name Unknown Organization [facility] Address [address] [place] [address]- Care Team Providers Care Forensic Manager Name Role Phone Myranda Benitez MD Primary Care Physician [place] [facility] [place]): [place] 03[place]23/21 [facility] [address] [place] [address]- Encounter Diagnosis UTI (urinary tract infection)(Discharge Diagnosis) - 03/16/21 Attending Physician: Michelle Kern MD Referring Physician: Myranda Benitez MD Allergies, Adverse [...] 2Admin Note: Sanofi Pasteur Diuent Lot # [id number] Exp: 01/05/2012 3Admin Note: Sanofi Pasteur Medications [...] THE EVENING, #450 capsule, 1 Refills, Maintenance, [facility] #[id number], 179, cm, 12/08/19 15:08:00 EST, Height Start [...] tablet, 3 Refills, Maintenance, 12/06/20 15:22:00 EST, [facility]/pharmacy #2339, 179, cm, 12/08/19 15:08:00 EST, Height Start Date: 12/06/20 Stop Date: 12/01/21 Status: Ordered PHENobarbital 32.4 mg oral tablet See Instructions, 1 tablet am and 2 tablets pm. MassPat checked, # 90 tablet, 0 Refills, Maintenance, 03/23/21 17:46:00 EDT, [facility], 179, cm, 03/16/21 12:20:00 EDT, Height, 94.2, kg, 03/16/21 12:24:00 EDT, Dry Weight Start Date: 03/23/21 Status: Ordered ProAir HFA 90 mcg/inh inhalation [...] capsule, 11 Refills, Maintenance, 09/20/20 11:59:00 EST, [facility] #[id number], 179, cm, 12/08/19 15:08:00 EST, Height Start [...] cigarettes a day, does not use alcohol Diagnosis Diagnosis Type Effective Dates Health Status Cl inical Service Informant UTI (urinary tract infection) Discharge Diagnosis 03/16/21 Vital Signs Most recent to oldest [Reference Range]: 1 Height 179 cm (03/16/21 12:20 PM) Weight 94.2 kg (03/16/21 12:20 PM) Oxygen Saturation [94-100 %] 100 % (03/16/21 12:20 PM) Pulse Rate [55-90 bpm] 78 bpm (03/16/21 12:20 PM) Body Mass Index [18.5-24.99] 29.4 *H* (03/16/21 12:20 PM) Blood Pressure [90-138/55-84 mm Hg] 108/ 69mm Hg (03/16/21 12:20 PM) Respiratory Rate [16-30 br/min] 20 br/mi n (03/16/21 12:20 PM) Temperature [96.8-100.4 DegF] 98.0 DegF (03/16/21 12: PM) Mode of Delivery (Oxygen) Room air (03/16/21 12:20 PM) Blood pressure sites Arm, right (03/16/21 12:20 PM) Temperature Route Temporal (03/16/21 12:20 PM) Dry Weight 94.2 kg (03/16/21 12:20 PM) Weight Obtained Via Standing scale (03/16/21 12:20 PM) Dry Weight Obtained Via Standing scale (03/16/21 12:20 PM) Social History Social History Type Response Smoking Status Current every day romeo gibbs; Tobacco user in household: Yes; Other: 7-8 ciggarettes/day mon-th, 1/2ppd fri, sat, sun; entered on: 09/11/17 Sex
--- OUTSIDE RECORDS SUMMARY | 2023-08-11 13:35 | XMS_ITS | Continuity of Care Document ---
Author Name Unknown Organization [facility] Address Unknown Care Team Providers Care Heating Systems Installer Name Role Phone Po Myranda ROLAND Primary Care Physician [place] [facility] [place] - 11/28/21 [facility] Allergies, Adverse Reactions, Alerts Substance [...] 2Admin Note: Sanofi Pasteur Diuent Lot # [id number] Exp: 01/05/2012 3Admin Note: Sanofi Pasteur Medications [...] IN THE EVENING, #450 capsule, 1 Refills, [facility] [id number], 179, cm, 03/16/21 12:20:00 EDT, Height, 94.2, [...] tablet, 3 Refills, Maintenance, 12/06/20 15:22:00 EST, [facility]/pharmacy #2339, 179, cm, 12/08/19 15:08:00 EST, Height Start Date: 12/06/20 Stop Date: 12/01/21 Status: Ordered PHENobarbital 32.4 mg oral tablet See Instructions, 1 tablet am and 2 tablets pm. MassPat checked, # 90 tablet, 5 Refills, Maintenance, 10/30/21 16:17:00 EST, [facility]/pharmacy #2339, 179, cm, 03/16/21 12:20:00 EDT, Height, 94.2, kg, 03/16/21 12:24:00 EDT, Dry Weight Start Date: 10/30/21 Status: Ordered ProAir HFA 90 mcg/inh inhalation [...] Mouth, Daily, # 30 capsule, 11 Refills, [facility] #[id number], 179, cm, 03/16/21 12:20:00 EDT, Height, 94.2, [...]
--- OUTSIDE RECORDS SUMMARY | 2023-08-11 13:35 | XMS_ITS | Continuity of Care Document ---
Author Name Unknown Organization [facility] Address [address] [facility], 3r d Floor, [address] [place] [address]- Care Team Providers Care Clinic Assistant Name Role Phone Myranda Benitez MD Primary Care Physician [phone] Encounter [facility] Date(s): 03/16/23 - 04/23/23 [facility] [address], 3rd Floor, [address] [place] [address] Attending Physician: Shawn Lees MD Admitting Physician: Shawn Lees MD Referring Physician: Myranda Benitez MD Allergies, [...] 2Admin Note: Sanofi Pasteur Diuent Lot # [id number] Exp: 01/05/2012 3Admin Note: Sanofi Pasteur Medications [...] 3 CAPSULES BY MOUTH IN THE EVENING, #435 capsule, 3 Refills, Maintenance, 02/10/23 10:01:00 EDT, [facility], 179, cm, 03/16/21 12:20:00 EDT, Height, 94.2, kg, 03/16/21 12:24:00 EDT, D... Start Date: 02/10/23 Status: Ordered Compression Stockings See Instructions, # [...] NO SUBSTITUTION, # 540 tablet, 3 Refills, [facility], 179, cm, 03/16/21 12:20:00 EDT, Height, 94.2, kg, 03/16/2112:24:00 EDT, Dry Weight Start Date: 12/11/21 Status: Ordered PHENobarbital 32.4 mg oral tablet See Instructions, 1 tablet am and 2 tablets pm. MassPat checked, # 90 tablet, 5 Refills, Maintenance, 04/08/23 8:52:00 EDT, [facility] Start Date: 04/08/23 Status: Ordered ProAir HFA 90 mcg/inh inhalation [...] Mouth, Daily, # 30 capsule, 11 Refills, [facility]05949, 179, cm, 03/16/21 12:20:00 EDT, Height, 94.2, kg, 03/16/21 12:24:00 EDT, Dry Weight Start Date: 09/20/21 Status: Ordered Vitamin Super B complex Vitamin Super B complex, Refills 0, Maintenance, 12/05/20 15:47:00 EST, Supply Start Date: 12/05/20 Status: Ordered Problem List Condition Confirmation Course Effective Dates Status Health St atus Informant Acne Confirmed Active Adjustment disorder with mixed anxiety and depressed mood Confirmed Active Allergy Confirmed 06/08/08 Active Asthma Confirmed 05/10/08 Active Depressive Disorder, Not Elsewhere Classified Confirmed Active FH - Family history 1 Confirmed 11/21/08 Active Furuncle of neck Confirmed Active Gastric reflux Confirmed 11/21/08 Active Seizure disorder Confirmed 05/10/08 Active SH - Social history 2 Confirmed 11/21/08 Active Tobacco abuse Confirmed 05/10/08 Active Vitamin D deficiency Confirmed Active 1stroke, CAD, gout, hayfever 2student, 3 children, single, smokes one half pack of cigarettes a day, does not use alcohol Social History Social History Type Response Smoking Status Current every day sm oker; Tobacco user in household: Yes; Other: 7-8 ciggarettes/day mon-thurs, 1/2ppd fri, sat, sun; entered on: 09/11/17 Sex Patient Care team information Care Team Personnel Name: Myranda Benitez MD Position: Reference Physician Member Role: PCP Address: Address: [address] [place] [address]- Name: Willard RN, Shasta Reyes Position: S RN Member Role: Primary Care Nurse Care Team Related Persons Name: CIERA PARK Name: LASHAUN JOINER Address: home [address] [place], [place] Name: TRICE JOINER Address: [address] [place], [place] Name: LIN GIBSON Address: home [address] [place], [place] Name: LIN LEMON Address: home [address] [place], [place]
--- OUTSIDE RECORDS SUMMARY | 2023-08-11 13:35 | XMS_ITS | Continuity of Care Document ---
Author Name Unknown Organization [facility] Address [address] [place] [address]- Care Team Providers Care Tree Inspector Name Role Phone Myranda Benitez MD Primary Care Physician [place] [facility] 03/01/22 - 03/31/22 [facility] [address] [place] [address]- Attending Physician: Maikel Liu DO Referring Physician: Myranda Benitez MD Allergies, Adverse [...] 2Admin Note: Sanofi Pasteur Diuent Lot # [id number] Exp: 01/05/2012 3Admin Note: Sanofi Pasteur Medications [...] IN THE EVENING, #450 capsule, 1 Refills, [facility], 179, cm, 03/16/21 12:20:00 EDT, Height, 94.2, [...] # 540 tablet, 3 Refills, [facility], 179, cm, 03/16/21 12:20:00 EDT, Height, 94.2, kg, 03/16/2112:24:00 EDT, Dry Weight Start Date: 12/11/21 Status: Ordered PHENobarbital 32.4 mg oral tablet See Instructions, 1 tablet am and 2 tablets pm. MassPat checked, # 90 tablet, 5 Refills, Maintenance, 12/13/21 13:47:00 EST, [facility], 179, cm, 03/16/21 12:20:00 EDT, Height, [...] Mouth, Daily, # 30 capsule, 11 Refills, [facility] #23627, 179, cm, 03/16/21 12:20:00 EDT, Height, 94.2, [...]
--- OUTSIDE RECORDS SUMMARY | 2023-08-11 13:35 | XMS_ITS | Continuity of Care Document ---
Author Name Unknown Organization [facility] Address [address] [place] [address]- Care Team Providers Care Baggage And Mail Agent Name Role Phone Po Myranda ROLAND Primary Care Physician [place] [facility] 02/10/23 - 03/12/23 [facility] [address] [place] [address]- [place] Allergies, Adverse Reactions, Alerts Substance Reaction Severity [...] 2Admin Note: Sanofi Pasteur Diuent Lot # [id number] Exp: 01/05/2012 3Admin Note: Sanofi Pasteur Medications [...] Refills, Maintenance, 02/10/23 10:01:00 EDT, [facility], 179, cm, 03/16/21 12:20:00 EDT, Height, 94.2, [...] # 540 tablet, 3 Refills, [facility], 179, cm, 03/16/21 12:20:00 EDT, Height, 94.2, kg, 03/16/2112:24:00 EDT, Dry Weight Start Date: 12/11/21 Status: Ordered PHENobarbital 32.4 mg oral tablet See Instructions, 1 tablet am and 2 tablets pm. MassPat checked, # 90 tablet, 5 Refills, Maintenance, 12/05/22 8:39:00 EST, [facility]/pharmacy #0693, 179, cm, 03/16/21 12:20:00 EDT, Height, 94.2, kg, 03/16/21 12:24:00 EDT, Dry Weight Start Date: 12/05/22 Status: Ordered ProAir HFA 90 mcg/inh inhalation [...] Mouth, Daily, # 30 capsule, 11 Refills, [facility] #07042, 179, cm, 03/16/21 12:20:00 EDT, Height, 94.2, [...] Reference Physician Member Role: PCP Address: Address: [address] [place] [address]- Name: Shasta Lamar RN, I Position: [facility] RN Member Role: Primary Care Nurse Care Team Related Persons Name: CIERA PARK Name: LASHAUN JOINER Address: home [address] [place], [place] Name: TRICE JOINER Address: [address] [place], [place] Name: LIN GIBSON Address: [address] [place], [place] Name: LIN LEMON Address: [address] [place] [address]
--- OUTSIDE RECORDS SUMMARY | 2023-08-11 13:35 | XMS_ITS | Continuity of Care Document ---
Author Name Unknown Organization [facility] Address Unknown Care Team Providers Care 21 Dealer Name Role Phone Po Myranda ROLAND Primary Care Physician [facility]counter [facility] Date(s): 06/20/21 - 09/20/21 [facility] Attending Physician: Kelly Farfan NP Admitting Physician: Kelly Farfan NP Allergies, Adverse Reactions, Alerts Substance Reaction Severity [...] 2Admin Note: Sanofi Pasteur Diuent Lot # [id number] Exp: 01/05/2012 3Admin Note: Sanofi Pasteur Medications [...] #450 capsule, 1 Refills, Maintenance, [facility], 179, cm, 03/16/21 12:20:00 EDT, Height, 94.2,kg, [...] tablet, 3 Refills, Maintenance, 12/06/20 15:22:00 EST, [facility]/pharmacy #2339, 179, cm, 12/08/19 15:08:00 EST, Height Start Date: 12/06/20 Stop Date: 12/01/21 Status: Ordered PHENobarbital 32.4 mg oral tablet See Instructions, 1 tablet am and 2 tablets pm. MassPat checked, # 90 tablet, 3 Refills, Maintenance, 06/20/21 16:47:00 EDT, [facility], 179, cm, 03/16/21 12:20:00 EDT, [...] Mouth, Daily, # 30 capsule, 11 Refills, [facility] #04374, 179, cm, 03/16/21 12:20:00 EDT, Height, 94.2, [...]
--- OUTSIDE RECORDS SUMMARY | 2023-08-11 13:35 | XMS_ITS | Continuity of Care Document ---
Author Name Unknown Organization [facility] Address [address] [place] [address]- Care Team Providers Care Fuse Cutter Name Role Phone Po Myranda ROLAND Primary Care Physician Encounter [facility] Date(s): 08/15/21 - 08/16/[address] [address]- Discharge Disposition: A-D/C Walkout Attending Physician: Karan Laguna MD Admitting Physician: Karan Laguna MD Referring Physician: Not on Staff, Referring MD Allergies, Adverse Reactions, Alerts Substance Reaction [...] 2Admin Note: Sanofi Pasteur Diuent Lot # [id number] Exp: 01/05/2012 3Admin Note: Sanofi Pasteur Medications [...] #450 capsule, 1 Refills, Maintenance, [facility], 179, cm, 03/16/21 12:20:00 EDT, Height, 94.2,kg, [...] capsule, 11 Refills, Maintenance, 09/20/20 11:59:00 EST, [facility] #53427, 179, cm, 12/08/19 15:08:00 EST, Height Start [...] cigarettes a day, does not use alcohol Vital Signs Most recent to oldest [Reference Range]: 1 2 3 Oxygen Saturation [94-100 %] 99 % (08/15/21 7:37 PM) 100 % (08/15/21 4:55 PM) 100 % (08/15/21 4:41 PM) Pulse Rate [55-90 bpm] 73 bpm (08/15/21 7:37 PM) 78 bpm (08/15/21 4:55 PM) 85 bpm (08/15/21 4:41 PM) Blood Pressure [90-138/55-84 mm Hg] 117/70mm Hg (08/15/21 7:37 PM) 126/86mm Hg (08/15/21 4:55 PM) Respiratory Rate [16-30 br/min] 17 br/min (08/15/21 7:37 PM) 16 br/min (08/15/21 4:55 PM) Temperature [96.8-100.4 DegF] 97.9 DegF (08/15/21 7:37 PM) 98.4 DegF (08/15/21 4:55 PM) Mode of Delivery (Oxygen) Room air (08/15/21 7:37 PM) Room air (08/15/21 4:55 PM) Blood pressure sites Arm, left (08/15/21 7:37 PM) Arm, right (08/15/21 4:55 PM) Temperature Route Oral (08/15/21 7:37 PM) Oral (08/15/21 4:55 PM) Social History Social History Type Response Smoking Status Current every day romeo gibbs; Tobacco user in household: Yes; Other: 7-8 ciggarettes/day mon-th, 1/2ppd fri, sat, sun; entered on: 09/11/17 Sex
--- OUTSIDE RECORDS SUMMARY | 2023-08-11 13:35 | XMS_ITS | Continuity of Care Document ---
Author Name Unknown Organization [facility] Address Unknown Care Team Providers Care Lathing Supervisor Name Role Phone Myranda Benitez MD Primary Care Physician Encounter [facility] Date(s): 03/08/21 - 07/06/21 [facility] Attending Physician: Constanza Carpenter MD Admitting Physician: Constanza Carpenter MD Allergies, Adverse Reactions, Alerts Substance Reaction [...] 2Admin Note: Sanofi Pasteur Diuent Lot # [id number] Exp: 01/05/2012 3Admin Note: Sanofi Pasteur Medications [...] #450 capsule, 1 Refills, Maintenance, [facility], 179, cm, 03/16/21 12:20:00 EDT, Height, 94.2,kg, [...] tablet, 3 Refills, Maintenance, 12/06/20 15:22:00 EST, [facility]/pharmacy #2339, 179, cm, 12/08/19 15:08:00 EST, Height Start Date: 12/06/20 Stop Date: 12/01/21 Status: Ordered PHENobarbital 32.4 mg oral tablet See Instructions, 1 tablet am and 2 tablets pm. MassPat checked, # 90 tablet, 3 Refills, Maintenance, 06/20/21 16:47:00 EDT, [facility]/pharmacy #2339, 179, cm, 03/16/21 12:20:00 EDT, Height, [...] capsule, 11 Refills, Maintenance, 09/20/20 11:59:00 EST, [facility] #[id number], 179, cm, 12/08/19 15:08:00 EST, Height Start [...]
--- OUTSIDE RECORDS SUMMARY | 2023-08-11 13:35 | XMS_ITS | Continuity of Care Document ---
Author Name Unknown Organization [facility] Address [address] [facility], 3r d Floor, [address] [place] [address]- Care Team Providers Care Novelty Worker Name Role Phone Po Myranda ROLAND Primary Care Physician Encounter [facility] Date(s): 09/25/20 - 10/25/[address] [facility] [address] [place], 3rd Floor, [address] [place] [address]- Allergies, Adverse Reactions, Alerts Substance Reaction Severity [...] 2Admin Note: Sanofi Pasteur Diuent Lot # [id number] Exp: 01/05/2012 3Admin Note: Sanofi Pasteur Medications [...] capsule, 11 Refills, Maintenance, 09/20/20 11:59:00 EST, [facility] #24331, 179, cm, 12/08/19 15:08:00 EST, Height Start Date: 09/20/20 Status: Ordered VITAMIN D3 2000UNIT CAPSULES See Instructions, # 30 capsule, Refills 5 Tot. Refills 5, TAKE 1 CAPSULE BY MOUTH DAILY FOR 30 DAYS, [facility] #[id number] Start Date: 09/06/19 Status: Ordered Problem List [...]
--- OUTSIDE RECORDS SUMMARY | 2023-08-11 13:35 | XMS_ITS | Continuity of Care Document ---
Author Name Unknown Organization [facility] Address [address] [facility], 3r d Floor, [address] [place] [address]- Care Team Providers Care Bottom Saw Operator Name Role Phone Po Myranda ROLAND Primary Care Physician [phone] Encounter [facility] Date(s): 03/24/23 - 04/23/23 [facility] [address] [place], 3rd Floor, [address] [place] [id number] Attending Physician: Admtr, Ar8 Allergies, Adverse Reactions, Alerts Substance Reaction Severity [...] 2Admin Note: Sanofi Pasteur Diuent Lot # [id number] Exp: 01/05/2012 3Admin Note: Sanofi Pasteur Medications [...] Refills, Maintenance, 02/10/23 10:01:00 EDT, [facility], 179, cm, 03/16/21 12:20:00 EDT, Height, 94.2, [...] # 540 tablet, 3 Refills, [facility], 179, cm, 03/16/21 12:20:00 EDT, Height, 94.2, [...] Mouth, Daily, # 30 capsule, 11 Refills, [facility] #88797, 179, cm, 03/16/21 12:20:00 EDT, Height, 94.2, [...] Reference Physician Member Role: PCP Address: Address: [address] [place] [id number] Name: Shasta Lamar RN, I Position: S RN Member Role: Primary Care Nurse Care Team Related Persons Name: CIERA PARK Name: LASHAUN JOINER Address: [address] [place], [place] Name: TRICE JOINER Address: [address] [place], [place] Name: LIN GIBSON Address: [address] [place], [place] Name: LIN LEMON Address: [place] [address] [place] [address]
--- OUTSIDE RECORDS SUMMARY | 2023-08-11 13:35 | XMS_ITS | Continuity of Care Document ---
Author Name Unknown Organization [facility] Address [address] [facility], 3r d Floor, [address] [place] [address]- Care Team Providers Care Life Insurance Sales Agent Name Role Phone Po Myranda ROLAND Primary Care Physician Encounter [facility] Date(s): 06/05/20 - 07/05/20 [facility] [address], 3[address] Floor, [address] [place] [address]- [facility] Allergies, Adverse Reactions, Alerts Substance Reaction [...] 2Admin Note: Sanofi Pasteur Diuent Lot # [id number] Exp: 01/05/2012 3Admin Note: Sanofi Pasteur Medications [...] THE EVENING, #450 capsule, 1 Refills, Maintenance, [facility] #87573, 179, cm, 12/08/19 15:08:00 EST, Height Start [...] tablet, 5 Refills, Maintenance, 01/23/20 10:26:00 EDT, [facility] #47142, MassPAT checked., 179, cm, 12/08/19 15:08:00 EST, [...] CAPSULE BY MOUTH DAILY FOR 30 DAYS, [facility] #69208 Start Date: 09/06/19 Status: Ordered Problem List Condition Effective Dates Status Health Status Inform ant Acne(Confirmed) Active Allergy(Confirmed) 06/08/08 Active Asthma(Confirmed) 05/10/08 Active [...] Response Smoking Status Current every day romeo laughliner; Tobacco user in household: Yes; Other: 7-8 ciggarettes/day thu-th, 1/2ppd fri, sat, sun; entered on: 09/11/17 Sex
--- OUTSIDE RECORDS SUMMARY | 2023-08-11 13:36 | XMS_ITS | Continuity of Care Document ---
Author Name Unknown Organization [facility] Address [address] [place], [address]r d Floor, [address] [place] [address]- Care Team Providers Care Grocery Packer Name Role Phone Po Myranda ROLAND Primary Care Physician Encounter [facility] Date(s): 02/13/21 - 03/15/21 [facility] [address], 3[address] Floor, [address] [place] [address]- Allergies, Adverse Reactions, Alerts Substance Reaction Severity [...] 2Admin Note: Sanofi Pasteur Diuent Lot # [id number] Exp: 01/05/2012 3Admin Note: Sanofi Pasteur Medications [...] THE EVENING, #450 capsule, 1 Refills, Maintenance, [facility] #90472, 179, cm, 12/08/19 15:08:00 EST, Height Start [...] tablet, 3 Refills, Maintenance, 12/06/20 15:22:00 EST, [facility]/pharmacy #2339, 179, cm, 12/08/19 15:08:00 EST, Height Start Date: 12/06/20 Stop Date: 12/01/21 Status: Ordered PHENobarbital 32.4 mg oral tablet See Instructions, 1 tablet am and 2 tablets pm. MassPat checked, # 90 tablet, 0 Refills, Maintenance, 02/04/21 8:05:00 EDT, [facility]/pharmacy #2339, 179, cm, 12/08/19 15:08:00 EST, Height Start Date: 02/04/21 Status: Ordered ProAir HFA 90 mcg/inh inhalation [...] capsule, 11 Refills, Maintenance, 09/20/20 11:59:00 EST, [facility] #[id number], 179, cm, 12/08/19 15:08:00 EST, Height Start [...]
--- OUTSIDE RECORDS SUMMARY | 2023-08-11 13:36 | XMS_ITS | Continuity of Care Document ---
Author Name Unknown Organization [facility] Address [address] [place] [address]- Care Team Providers Care Wellness Guide Name Role Phone Myranda Benitez MD Primary Care Physician [phone] Encounter [facility] Date(s): 08/19/19 - 12/17/19 [facility] [address] [place] [address]- [facility] Attending Physician: Braden Putnam MD Admitting Physician: Braden Putnam MD Allergies, Adverse Reactions, Alerts Substance Reaction [...] 2Admin Note: Sanofi Pasteur Diuent Lot # [id number] Exp: 01/05/2012 3Admin Note: Sanofi Pasteur Medications [...] Date: 12/19/10 Stop Date: 02/17/11 Status: Ordered Carbatrol 200 mg oral capsule, extended release See Instructions, 2 capsules in am and 3 capsules in pm. 90 day supply., # 450 capsule, 3 Refills, Maintenance, 07/14/19 14:01:53 EDT Start Date: 07/14/19 Status: Ordered Compression Stockings See Instructions, # [...] pm., # 90 tablet, 5 Refills, Maintenance, 07/08/19 8:31:15 EDT Start Date: 07/08/19 Status: Ordered ProAir HFA 90 mcg/inh inhalation [...] CAPSULE BY MOUTH DAILY FOR 30 DAYS, [facility] #[id number] Start Date: 09/06/19 Status: Ordered Problem List [...]
--- OUTSIDE RECORDS SUMMARY | 2023-08-11 13:36 | XMS_ITS | Continuity of Care Document ---
Author Name Unknown Organization [facility] Address [address] [place] [address]- Care Team Providers Care Fuel Injection Servicer Name Role Phone Po Myranda ROLAND Primary Care Physician [phone] Encounter [facility] Date(s): 02/10/23 - 03/12/23 [facility] [address] [place] [address]- [place] Allergies, Adverse Reactions, Alerts Substance Reaction [...] 2Admin Note: Sanofi Pasteur Diuent Lot # [id number] Exp: 01/05/2012 3Admin Note: Sanofi Pasteur Medications [...] Refills, Maintenance, 02/10/23 10:01:00 EDT, [facility], 179, cm, 03/16/21 12:20:00 EDT, Height, 94.2, [...] # 540 tablet, 3 Refills, [facility], 179, cm, 03/16/21 12:20:00 EDT, Height, 94.2, kg, 03/16/2112:24:00 EDT, Dry Weight Start Date: 12/11/21 Status: Ordered PHENobarbital 32.4 mg oral tablet See Instructions, 1 tablet am and 2 tablets pm. MassPat checked, # 90 tablet, 5 Refills, Maintenance, 12/05/22 8:39:00 EST, [facility]/pharmacy #0693, 179, cm, 03/16/21 12:20:00 [...] Mouth, Daily, # 30 capsule, 11 Refills, [facility] #49756, 179, cm, 03/16/21 12:20:00 EDT, Height, 94.2, [...] Reference Physician Member Role: PCP Address: Address: [address] [place] [address]- Name: Shasta Lamar RN, I Position: [facility] RN Member Role: Primary Care Nurse Care Team Related Persons Name: CIERA PARK Name: LASHAUN JOINER Address: [address] [place], [place] Name: TRICE JOINER Address: [address] [place], [place] Name: LIN GIBSON Address: [address] [place], [place] Name: LIN LEMON Address: [place] [address] [place] [address]
--- OUTSIDE RECORDS SUMMARY | 2023-08-11 13:36 | XMS_ITS | Continuity of Care Document ---
Author Name Unknown Organization [facility] Address [address] [place] [address]- Care Team Providers Care Gardening Instructor Name Role Phone Po Myranda ROLAND Primary Care Physician [phone] [facility]counter [facility] Date(s): 03/16/21 - 04/15/21 [facility] [address] [place], [place] [address] Attending Physician: Monse Atwood Admitting Physician: Admtr, Monse Referring Physician: Admtr, Ar8 Allergies, Adverse Reactions, Alerts [...] 2Admin Note: Sanofi Pasteur Diuent Lot # [id number] Exp: 01/05/2012 3Admin Note: Sanofi Pasteur Medications [...] THE EVENING, #450 capsule, 1 Refills, Maintenance, [facility] #18491, 179, cm, 12/08/19 15:08:00 EST, Height Start [...] tablet, 3 Refills, Maintenance, 12/06/20 15:22:00 EST, [facility] #2339, 179, cm, 12/08/19 15:08:00 EST, [...] capsule, 11 Refills, Maintenance, 09/20/20 11:59:00 EST, [facility] #50515, 179, cm, 12/08/19 15:08:00 EST, Height Start [...]
--- OUTSIDE RECORDS SUMMARY | 2023-08-11 13:36 | XMS_ITS | Continuity of Care Document ---
Author Name Unknown Organization [facility] Address [address] [facility], 3r d Floor, [address] [place] [address]- Care Team Providers Care Redeye Gunner Name Role Phone Myranda Benitez MD Primary Care Physician [phone] Encounter [facility] Date(s): 06/11/20 - 07/11/20 [facility] [address], [address] Floor, [address] [place] [address]- [facility] Allergies, Adverse Reactions, Alerts Substance Reaction Severity [...] 2Admin Note: Sanofi Pasteur Diuent Lot # [id number] Exp: 01/05/2012 3Admin Note: Sanofi Pasteur Medications [...] THE EVENING, #450 capsule, 1 Refills, Maintenance, [facility] #61548, 179, cm, 12/08/19 15:08:00 EST, Height Start [...] tablet, 5 Refills, Maintenance, 01/23/20 10:26:00 EDT, [facility] #57670, MassPAT checked., 179, cm, 12/08/19 15:08:00 EST, [...] CAPSULE BY MOUTH DAILY FOR 30 DAYS, [facility] #13880 Start Date: 09/06/19 Status: Ordered Problem List [...]
--- OUTSIDE RECORDS SUMMARY | 2023-08-11 13:36 | XMS_ITS | Continuity of Care Document ---
Author Name Unknown Organization [facility] Address [address] [facility], 3r d Floor, [address] [place] [address]- Care Team Providers Care Fraternity Adviser Name Role Phone Po Myranda ROLAND Primary Care Physician [phone] Encounter [facility] Date(s): 03/09/23 - 04/08/23 [facility] [address], 3[address] Floor, [address] [place] [address]- Allergies, Adverse Reactions, Alerts Substance Reaction Severity [...] 2Admin Note: Sanofi Pasteur Diuent Lot # [id number] Exp: 01/05/2012 3Admin Note: Sanofi Pasteur Medications [...] Refills, Maintenance, 02/10/23 10:01:00 EDT, [facility], 179, cm, 03/16/21 12:20:00 EDT, Height, 94.2, [...] # 540 tablet, 3 Refills, [facility], 179, cm, 03/16/21 12:20:00 EDT, Height, 94.2, [...] Mouth, Daily, # 30 capsule, 11 Refills, [facility] #10808, 179, cm, 03/16/21 12:20:00 EDT, Height, 94.2, [...] Reference Physician Member Role: PCP Address: Address: [address] [place] [address]- Name: Willard SR, Shasta Reyes Position: S RN Member Role: Primary Care Nurse Care Team Related Persons Name: CIERA PARK Name: LASHAUN JOINER Address: [address] [place], [place] Name: TRICE JOINER Address: [address] [place], [place] Name: LIN GIBSON Address: [address] [place], [place] Name: LIN LEMON Address: [address] [address]
--- OUTSIDE RECORDS SUMMARY | 2023-08-11 13:36 | XMS_ITS | Continuity of Care Document ---
Author Name Unknown Organization [facility] Address [address], [address], [address] [place] [address]- Care Team Providers Care Director Ambulatory Name Role Phone Po Myranda ROLAND Primary Care Physician [facility]counter [facility] Date(s): 03/02/23 - 04/01/23 [facility] [address], [address], [address] [place] [id number] Allergies, Adverse Reactions, Alerts Substance Reaction Severity [...] 2Admin Note: Sanofi Pasteur Diuent Lot # [id number] Exp: 01/05/2012 3Admin Note: Sanofi Pasteur Medications [...] Refills, Maintenance, 02/10/23 10:01:00 EDT, [facility], 179, cm, 03/16/21 12:20:00 EDT, Height, 94.2, [...] # 540 tablet, 3 Refills, [facility], 179, cm, 03/16/21 12:20:00 EDT, Height, 94.2, kg, 03/16/2112:24:00 EDT, Dry Weight Start Date: 12/11/21 Status: Ordered PHENobarbital 32.4 mg oral tablet See Instructions, 1 tablet am and 2 tablets pm. MassPat checked, # 90 tablet, 5 Refills, Maintenance, 12/05/22 8:39:00 EST, [id number], 179, cm, 03/16/21 12:20:00 EDT, [...] Mouth, Daily, # 30 capsule, 11 Refills, [facility] #[id number], 179, cm, 03/16/21 12:20:00 EDT, Height, 94.2, [...] Reference Physician Member Role: PCP Address: Address: [address] [place] [id number]- Name: Shasta Lamar RN, I Position: S RN Member Role: Primary Care Nurse Care Team Related Persons Name: CIERA PARK Name: LASHAUN JOINER Address: home [address], [place] Name: TRICE JOINER Address: home [address], [place] Name: LIN GIBSON Address: home [address], [place] Name: LIN LEMON Address: home [address], [place]
--- OUTSIDE RECORDS SUMMARY | 2023-08-11 13:36 | XMS_ITS | Continuity of Care Document ---
Author Name Unknown Organization [facility] Address Unknown Care Team Providers Care Band Booker Name Role Phone Po Myranda ROLAND Primary Care Physician [phone] [place] [facility] [place]21 - 09/21/21 [facility] Attending Physician: Constanza Carpenter MD [...] 2Admin Note: Sanofi Pasteur Diuent Lot # [id number] Exp: 01/05/2012 3Admin Note: Sanofi Pasteur Medications [...] #450 capsule, 1 Refills, Maintenance, [facility], 179, cm, 03/16/21 12:20:00 EDT, Height, 94.2,kg, [...] Mouth, Daily, # 30 capsule, 11 Refills, [facility] #[id number], 179, cm, 03/16/21 12:20:00 EDT, Height, 94.2, [...]
--- OUTSIDE RECORDS SUMMARY | 2023-08-11 13:37 | XMS_ITS | Continuity of Care Document ---
Author Name Unknown Organization [facility] Address [address] [facility], [address]r d Floor, [address] [place] [id number]- Care Team Providers Care Bpm Architect Name Role Phone Po Myranda ROLAND Primary Care Physician [phone] [place] [facility] [place]): 03/12/23 - 04/16/23 [facility] [address], [address], [address] [place] [id number] Attending Physician: Shelley Zaragoza NP Admitting Physician: Shelley Zaragoza NP Allergies, Adverse Reactions, Alerts Substance Reaction [...] 2Admin Note: Sanofi Pasteur Diuent Lot # [id number] Exp: 01/05/2012 3Admin Note: Sanofi Pasteur Medications [...] Refills, Maintenance, 02/10/23 10:01:00 EDT, [facility], 179, cm, 03/16/21 12:20:00 EDT, Height, 94.2, [...] # 540 tablet, 3 Refills, [facility], 179, cm, 03/16/21 12:20:00 EDT, Height, 94.2, [...] Mouth, Daily, # 30 capsule, 11 Refills, [facility] #[id number], 179, cm, 03/16/21 12:20:00 EDT, Height, 94.2, [...] Reference Physician Member Role: PCP Address: Address: [address] [place] [id number] Name: Willard SR, Shasta Reyes Position: S RN Member Role: Primary Care Nurse Care Team Related Persons Name: CIERA PARK Name: LASHAUN JOINER Address: home [address] [place], [place] Name: TRICE JOINER Address: home [address], [place] Name: LIN GIBSON Address: home [address], [place] Name: LIN LEMON Address: [address] [place] [address]
--- OUTSIDE RECORDS SUMMARY | 2023-08-11 13:37 | XMS_ITS | Continuity of Care Document ---
Author Name Unknown Organization [facility] Address [address] [place] [address]- Care Team Providers Care Bundles Hanger Name Role Phone Po Myranda ROLAND Primary Care Physician [facility] Date(s): 01/13/23 - 02/12/23 [facility] [address] [place] [address]- [place] Allergies, Adverse Reactions, Alerts Substance Reaction [...] 2Admin Note: Sanofi Pasteur Diuent Lot # [id number] Exp: 01/05/2012 3Admin Note: Sanofi Pasteur Medications [...] Refills, Maintenance, 02/10/23 10:01:00 EDT, [facility], 179, cm, 03/16/21 12:20:00 EDT, Height, 94.2, [...] # 540 tablet, 3 Refills, [facility], 179, cm, 03/16/21 12:20:00 EDT, Height, 94.2, kg, 03/16/2112:24:00 EDT, Dry Weight Start Date: 12/11/21 Status: Ordered PHENobarbital 32.4 mg oral tablet See Instructions, 1 tablet am and 2 tablets pm. MassPat checked, # 90 tablet, 5 Refills, Maintenance, 12/05/22 8:39:00 EST, [facility]/pharmacy #[id number], 179, cm, 03/16/21 12:20:00 EDT, Height, [...] Mouth, Daily, # 30 capsule, 11 Refills, [facility] #[id number], 179, cm, 03/16/21 12:20:00 EDT, Height, 94.2, [...] Reference Physician Member Role: PCP Address: Address: [address] [place] [id number] Name: Willard SR, Shasta Reyes Position: S RN Member Role: Primary Care Nurse Care Team Related Persons Name: CIERA PARK Name: LASHAUN JIONER Address: home [address], [place] Name: TRICE JOINER Address: home [address], [place] Name: LIN GIBSON Address: home [address] [place], [place] Name: LIN LEMON Address: [place] [address] [place] [address]
--- OUTSIDE RECORDS SUMMARY | 2023-08-11 13:37 | XMS_ITS | Continuity of Care Document ---
Author Name Unknown Organization [facility] Address [address] [facility], 3r d Floor, [address] [place] [address]- Care Team Providers Care Sr. Strategic Sourcing Manager Name Role Phone Po Myranda ROLAND Primary Care Physician [phone] Encounter [facility] Date(s): 11/29/20 - 12/29/20 [facility] [address], [address], [address] [place] [address]- Allergies, Adverse Reactions, Alerts Substance Reaction Severity [...] 2Admin Note: Sanofi Pasteur Diuent Lot # [id number] Exp: 01/05/2012 3Admin Note: Sanofi Pasteur Medications [...] THE EVENING, #450 capsule, 1 Refills, Maintenance, [facility] #[id number], 179, cm, 12/08/19 15:08:00 EST, Height Start [...] tablet, 3 Refills, Maintenance, 09/25/20 16:16:00 EST, [facility]/pharmacy #[id number], MassPAT checked., 179, cm, 12/08/19 15:08:00 [...] capsule, 11 Refills, Maintenance, 09/20/20 11:59:00 EST, [facility] #[id number], 179, cm, 12/08/19 15:08:00 EST, Height Start [...]
--- OUTSIDE RECORDS SUMMARY | 2023-08-11 13:37 | XMS_ITS | Continuity of Care Document ---
Author Name Unknown Organization [facility] Address [address] [place] [address]- Care Team Providers Care Green Pipefitter Name Role Phone Po Myranda ROLAND Primary Care Physician [facility] Date(s): 11/17/19 - 11/27/19 [facility] [address] [place] [address]- [facility] Attending Physician: Monse Atwood Admitting Physician: AdmtrMonse Referring Physician: Admtr, Ar8 Allergies, Adverse Reactions, [...] 2Admin Note: Sanofi Pasteur Diuent Lot # [id number] Exp: 01/05/2012 3Admin Note: Sanofi Pasteur Medications [...] CAPSULE BY MOUTH DAILY FOR 30 DAYS, [facility] #[id number] Start Date: 09/06/19 Status: Ordered Problem List [...]
--- OUTSIDE RECORDS SUMMARY | 2023-08-11 13:37 | XMS_ITS | Continuity of Care Document ---
Author Name Unknown Organization [facility] Address Unknown Care Team Providers Care Dental Coordinator Name Role Phone Po Myranda ROLAND Primary Care Physician Encounter [facility] Date(s): 08/21/21 - 09/20/21 [facility] Allergies, Adverse Reactions, Alerts Substance [...] 2Admin Note: Sanofi Pasteur Diuent Lot # [id number] Exp: 01/05/2012 3Admin Note: Sanofi Pasteur Medications [...] #450 capsule, 1 Refills, Maintenance, [facility], 179, cm, 03/16/21 12:20:00 EDT, Height, 94.2,kg, [...] tablet, 3 Refills, Maintenance, 12/06/20 15:22:00 EST, [facility]/pharmacy #2339, 179, cm, 12/08/19 15:08:00 EST, Height Start Date: 12/06/20 Stop Date: 12/01/21 Status: Ordered PHENobarbital 32.4 mg oral tablet See Instructions, 1 tablet am and 2 tablets pm. MassPat checked, # 90 tablet, 3 Refills, Maintenance, 06/20/21 16:47:00 EDT, [facility]/pharmacy #2339, 179, cm, 03/16/21 12:20:00 EDT, Height, [...] Mouth, Daily, # 30 capsule, 11 Refills, [facility] #[id number], 179, cm, 03/16/21 12:20:00 EDT, Height, 94.2, [...]
[2023-08-11 13:55] LABS: COVID-19 Test Negative (Negative); IDNOW Serial# 08D9AD1C; IDNOW Serial# BCCEAD1C; Influenza A Negative (Negative); Influenza B2 Negative (Negative)
--- NOTE | 2023-08-11 14:24 | ECG_ITS ---
Test Reason : LETHARGY Blood Pressure : / mmHG Vent. Rate : 067 BPM Atrial Rate : 067 BPM P-R Int : 152 ms QRS Dur : 100 ms QT Int : 410 ms P-R-T Axes : 041 056 033 degrees QTc Int : 433 ms Normal sinus rhythm Normal ECG When compared with ECG of 02-MAY-2008 22:04, No significant change was found Referred By: Shelbi Wall Electronically Signed By:ZI CABRALES
[2023-08-11 14:51] LABS: MANUAL DIFF FLAG NO
[2023-08-11 14:52] LABS: Basophils Percent Auto 0.5 % (0-2); Eosinophils Absolute Auto 0.4 X10*3/uL (0.0-0.4); Eosinophils Percent Auto 5.2 % (0-4); Hematocrit 36.1 % (37.0-47.0); Imm Gran Abs Auto 0.02 X10*3/uL (0.00-0.03); Imm Gran Pct Auto 0.3 % (0.0-0.4); Lymphocytes Absolute Auto 2.3 X10*3/uL (1.2-4.9); Lymphocytes Percent Auto 30.5 % (20-40); Mean Corpuscular HGB Conc 33.2 g/dl (31.0-35.0); Mean Corpuscular Hemoglobin 29.3 pg (27.0-33.0); Mean Corpuscular Volume 88.3 fL (80.0-98.0); Mean Platelet Volume 8.6 fL (9.4-12.3); Monocytes Absolute Auto 0.5 X10*3/uL (0.1-1.2); Monocytes Percent Auto 7.2 % (2-11); Neutrophils Absolute Auto 4.2 x10*3/uL (2.0-8.3); Neutrophils Percent Auto 56.3 % (45-73); Platelet Count 362 X10*3/uL (160-400); Red Blood Count 4.09 X10*6/uL (4.20-5.50); Red Cell Distribution Width 13.9 % (11.0-16.0); White Blood Count 7.5 X10*3/uL (4.8-10.8)
[2023-08-11 14:55] LABS: Appearance Urine Clear; Color Urine Yellow; Glucose Urine UA Negative (Negative); Leukocyte Esterase Urine Trace (Negative); Nitrite Urine Negative (Negative); PH 6.5 (5.0-9.0); UMIC TRIGGER UACC YES; Urine Blood Negative (Negative); Urine Ketones Negative (Negative); Urine Protein Negative (Neg-Trace)
[2023-08-11 15:00] LABS: Bacteria Urine 1+ (None Seen); Hyaline Casts Urine 0-2 /LPF (0-2); RBC Urine 0-2 /HPF (0-2); WBC Urine 0-5 /HPF (0-5)
[2023-08-11 15:09] LABS: Alanine Aminotransferase 11 U/L (0-31); Alkaline Phosphatase 92 U/L (39-117); Anion Gap 12 (12-20); Aspartate Amino Transferase 15 U/L (5-31); Bilirubin Direct < 0.2 mg/dL (0.0-0.5); Bilirubin Total 0.1 mg/dL (0.0-1.0); Blood Urea Nitrogen 4 mg/dL (9-16); Calcium 9.2 mg/dL (8.4-10.2); Carbon Dioxide 25 mmol/L (22-29); Chloride 103 mmol/L (96-108); Creatinine Clr Calc Pharmacy 131.7; Estimated Glomerular Filt Rate > 60; Glucose Random 82 mg/dL (60-115); Magnesium 2.2 mg/dL (1.6-2.6); Potassium 4.3 mmol/L (3.3-5.1); Sodium 136 mmol/L (135-145); Total Protein 7.2 g/dL (6.5-8.0)
[2023-08-11 15:24] LABS: IDNOW Serial# 08D9AD1C; Strep A Nucleic Acid Negative (Negative)
[2023-08-11] MEDS: Butalb/Acetamin/Caff 50/325/40 TABLET 2 TAB PO (16:07)
[2023-08-11] MEDS: Ondansetron ODT 4 MG TAB.RAPDIS TRANSLINGU (16:08)
[2023-08-11 16:10] VITALS: BP 131/71; PULSE 71; RESP 18; TEMP 36.8; O2SAT 98
[2023-08-11 16:13] VITALS: O2SAT 98
== END 2023-08-11 16:15 | disposition home or self-care (01) ==
PROVIDERS: Physician Assistant; Emergency Provider Emergency Medicine; PCP Internal Medicine
DX: B34.9 Viral infection, unspecified (principal); J02.9 Acute pharyngitis, unspecified; R05.9 Cough, unspecified; Z87.891 Personal history of nicotine dependence; Z11.52 Encounter for screening for COVID-19
CPT/HCPCS: 80048; 80076; 81001; 83735; 85025; 87502; 87635; 87651; 93005; 99283; 99285

== ENCOUNTER 2023-10-30 19:02 | Emergency (ER) | payer MEDICARE, MEDICAID, SELFPAY ==
--- NOTE | ~2023-10-30 | XR_ITS ---
EXAMINATION: XR CHEST CLINICAL INFORMATION: Difficulty breathing COMPARISON: None available. TECHNIQUE: Frontal view of the chest was obtained. FINDINGS: No significant abnormality is noted involving the heart, lungs, mediastinum, bony thorax or soft tissues. XR/XR chest 1V IMPRESSION: Unremarkable chest examination.
[2023-10-30 19:21] VITALS: BP 123/74; PULSE 106; RESP 18; TEMP 37.1; O2SAT 98; BMI 34.4
--- NOTE | 2023-10-30 19:22 | ED_ITS ---
HPI - General Adult General Chief complaint: Upper Respiratory Symptoms Stated complaint: Weakness/Migraine Time Seen by Provider: 10/30/23 21:01 Source: patient Mode of arrival: ambulatory Limitations: no limitations History of Present Illness HPI narrative: patient comes to the emergency room complaining of nausea vomiting and diarrhea, coughing. Patient states that her son has been coughing for about a week, patient states that when she gets URIs, she gets sicker than the rest of the family. Patient denies syncope or near syncope, no chest pain or shortness of breath. Patient states that she has been using her albuterol and Advair more than usual. But they work well and at this time she is not wheezing or short of breath. Related Data Home Medications Medication Instructions Recorded Confirmed lansoprazole 30 mg capsule,delayed 30 mg PO DAILY 11/12/20 06/24/23 release (Prevacid) zinc 50 mg tablet 50 mg PO DAILY 03/17/22 06/24/23 Previous Rx's Medication Instructions Recorded sumatriptan succinate 50 mg tablet 50 mg PO Q2-4H PRN migraine 03/18/22 headache #14 tabs ibuprofen 600 mg tablet 600 mg PO Q6H PRN pain #30 tabs 09/06/22 valacyclovir 1 gram tablet 1,000 mg PO TID #21 tabs 02/22/23 (Valtrex) carbamazepine 200 mg See Rx Instructions PO .COMPLEX 30 06/09/23 capsule,extended release [id number] days #150 caps fexofenadine 180 mg tablet 180 mg PO DAILY #90 tabs 06/24/23 (Allergy Relief (fexofenadine)) levetiracetam 500 mg tablet 1,500 mg (3 x 500 mg) PO BID 90 06/24/23 days #540 tabs montelukast 10 mg tablet 10 mg PO DAILY 90 days #90 tabs 06/24/23 phenobarbital 32.4 mg tablet 32.4 mg PO .COMPLEX 90 days #270 06/24/23 tabs folic acid 1 mg tablet 1 mg PO DAILY #90 tabs 06/25/23 albuterol sulfate 90 mcg/actuation 2 puff inhalation Q4-6H PRN for 09/15/23 aerosol inhaler wheezing #8.5 ea cholecalciferol (vitamin D3) 50 50 mcg PO DAILY #90 caps 10/02/23 mcg (2,000 unit) capsule fluticasone 250 mcg-salmeterol 50 1 inh inhalation BID #60 ea 10/30/23 mcg/dose blistr powdr for inhalation (Advair Diskus) loperamide 2 mg capsule 2 mg PO Q6H PRN loose stool #20 10/30/23 caps ondansetron HCl 4 mg tablet 4 mg PO Q8H PRN nausea and 10/30/23 vomiting #14 tabs Allergies Allergy/AdvReac Type Severity Reaction Status Date / Time vancomycin [VANCOMYCIN] Allergy Severe ANAPHYLAXIS Verified 08/11/23 12:38 nitrofurantoin Allergy Intermediate Rash Verified 08/11/23 12:38 [From Macrobid] fluconazole [Diflucan] Allergy Unknown anaphylaxis Verified 08/11/23 12:38 pantoprazole [Protonix] Allergy Unknown anaphylaxis Verified 08/11/23 12:38 phenytoin [Dilantin] Allergy Unknown hives Verified 08/11/23 12:38 Review of Systems Review of Systems: Constitutional : No Weight loss, No Fever, No Chills, No Night Sweats, Complaining of fatigue and generalized malaise ENT/Mouth : No Hearing loss, No Ear Pain, No Nasal Congestion, No Sinus Pain, No Hoarseness, No sore throat, No Rhinorrhea, No Swallowing Difficulty Eyes: No Eye Pain, No Swelling, No Redness, No Foreign Body, No Discharge, No Vision Changes Cardiovascular : No Chest Pain, No SOB, No Dyspnea on Exertion, No Orthopnea, No Edema, No Palpitations Respiratory : complaining of productive sputum with cough, intermittent wheezing, No Smoke Exposure, No Dyspnea Gastrointestinal : complaining of nausea vomiting diarrhea No Constipation, No abdominal Pain, No Hematochezia, No Melena Genitourinary : no irregular bleeding, No Dysuria, No Urinary Frequency, No Hematuria, No Urinary Incontinence, No Urgency, No Flank Pain, No Urinary Flow Changes, No Hesitancy Musculoskeletal : No joint pain, No Myalgias, No Joint Swelling Skin : No Skin Lesions, No rash Neuro : No Weakness, No Numbness, No Paresthesias, No Loss of Consciousness, No Dizziness, complaining of Headache Psych : No Anxiety/Panic, No Depression, No SI/HI/AH/VH, No Social Issues, Heme/Lymph: No Bruising, No Bleeding,No Lymphadenopathy Endocrine : No Polyuria, No Polydipsia, No Temperature Intolerance PMFSH Past Medical History Medical History PUD (peptic ulcer disease) PAO II (cervical intraepithelial neoplasia II) HPV in female Amenorrhea Head trauma Tobacco abuse Vitamin D deficiency Anxiety GERD (gastroesophageal reflux disease) Asthma Complex partial seizure Surgical History History of removal of ovarian cyst History of tubal ligation Cavernous hemangioma of brain Family History Family History Father Parkinson disease Stroke CVD (cardiovascular disease) TIA (transient ischemic attack) Mother Non Hodgkin's lymphoma Hypertension Paternal Aunt Ovarian cancer Paternal Uncle Pancreatic cancer Social History Social History Housing: House Alcohol intake: never Patient Tobacco Use Status: Former Tobacco user Tobacco use type: Cigarette Cigarette Packs Per Day: 0.3 Cigarettes Per Day: 6.0 e-Cigarette/Vaping Use: Never Used Second Hand Smoke Exposure: No Advance Directives: Yes Advance Directives on File: Yes Advance Directives Date on File: 08/23/21 Current occupational status: employed Cognitive needs: No Hearing needs: No Vision needs: Yes Physical Exam ED Vital Signs: Vital Signs - 24 hr 10/30/23 19:21 Temperature 98.7 F Pulse Rate 106 H Respiratory Rate 18 Blood Pressure 123/74 Pulse Oximetry 98 Oxygen Delivery Method Room Air BMI result Body Mass Index 34.4 Const Other: Appearance: Alert. Oriented X3. No acute distress. Eyes: Pupils equal, round and reactive to light. ENT: Pharynx normal. dry tongue Neck: Normal inspection. Neck supple. No lymph nodes noted. No crepitus CVS: Normal heart rate and rhythm. Pulses normal. Normal S1 and S2 Respiratory: No respiratory distress. Breath sounds normal. No Wheezing. bilateral rales Abdomen: Soft and nontender. No rigidity. No distention. Skin: Skin warm and dry. Normal skin color. Normal skin turgor. Extremities: No lower extremity edema. No Lacerations. No Rash Neuro: Oriented X 3. No motor deficit. No sensory deficit. Moving all extremities. No slurred speech. CN 2 through 12 grossly intact Psych: calm, cooperative, normal affect Course Course Course Narrative: RME performed by Breana Reyes PA-C. Patient is a 48 year old assigned female at presenting to the emergency department with a headache, loose stools, and a cough. Patient states that her son is also sick. Swabs ordered. Patient placed back in the waiting room pending room availability and results. Medical Decision Making Medical Decision Making [facility] Narrative: - my interpretation of labs: Negative for influenza, RSV and COVID - my interpretation of chest x-ray: No pneumonia, no infiltrates - patient seems to be dehydrated,patient being given IV fluids, Zofran, Reglan, loperamide - patient likely having a viral syndrome and dehydration Differential Diagnosis Differential Diagnoses: The differential diagnosis associated with the presentation includes ( Gastroenteritis, COVID, pneumonia, influenza, viral URI) Admission/Observation Consideration of admission/observation: Escalation of care including admission/observation considered ( given patient's presentation on arrival, patient was considered) Lab Data MDM Lab Attestation statement: I reviewed the patient's lab results. Labs: Lab Results 10/30/23 Range/Units 19:59 Influenza Type A (PCR) NEGATIVE (Negative) Influenza Type B (PCR) NEGATIVE (Negative) RSV RNA Qual (PCR) NEGATIVE (Negative) SARS-CoV-2 RNA (RT-PCR) NEGATIVE (Negative) Independent Interpretation I performed an independent interpretation of an: Plain X-Ray Radiology Impression Discussion of test interpretation with radiology: I have reviewed the radiologist's reading. (FINDINGS: No significant abnormality is noted involving the heart, lungs, mediastinum, bony thorax or soft tissues. XR/XR chest 1V IMPRESSION: Unremarkable chest examination.) Critical Care Time Critical Care Time Critical Care Time: Yes Total Critical Care Time: 30 Attestation: I have personally provided critical care time. Time includes review of lab data, radiology results, discussion with consultants, and monitoring for potential decompensation. Intervention performed as documented. Discharge Plan Discharge Clinical Impression: Dehydration, Nausea, vomiting and diarrhea, Viral upper respiratory infection Patient Disposition: Home, Self-Care Instructions: Viral Syndrome (ED) Additional Instructions: Please follow-up with your primary care physician tomorrow. If you have any worsening or new symptoms, please return to the emergency room or call 911 Prescriptions: New loperamide 2 mg capsule 2 mg PO Q6H PRN (Reason: loose stool) Qty: 20 0RF ondansetron HCl 4 mg tablet 4 mg PO Q8H PRN (Reason: nausea and vomiting) Qty: 14 0RF fluticasone propion-salmeterol [Advair Diskus] 250-50 mcg/dose blister with device 1 inh inhalation BID Qty: 60 0RF No Action sumatriptan succinate 50 mg tablet 50 mg PO Q2-4H PRN (Reason: migraine headache) Qty: 14 11RF Rx Instructions: do not exceed 4 doses per 24 hrs carbamazepine 200 mg capsule, ER multiphase 12 hr See Rx Instructions PO .COMPLEX 30 Days Qty: 150 11RF Rx Instructions: Take 2 capsules in the morning and 3 capsules in the evening orally; folic acid 1 mg tablet 1 mg PO DAILY Qty: 90 1RF albuterol sulfate 90 mcg/actuation HFA aerosol inhaler 2 puff inhalation Q4-6H PRN (Reason: for wheezing) Qty: 8.5 0RF cholecalciferol (vitamin D3) 50 mcg (2,000 unit) capsule 50 mcg PO DAILY Qty: 90 0RF ibuprofen 600 mg tablet 600 mg PO Q6H PRN (Reason: pain) Qty: 30 0RF valacyclovir [Valtrex] 1 gram tablet 1,000 mg PO TID Qty: 21 0RF lansoprazole [Prevacid] 30 mg capsule,delayed release(DR/EC) 30 mg PO DAILY phenobarbital 32.4 mg tablet 32.4 mg PO .COMPLEX 90 Days Qty: 270 3RF Rx Instructions: 32.4 mg orally; once in am and 2 at night fexofenadine [Allergy Relief (fexofenadine)] 180 mg tablet 180 mg PO DAILY Qty: 90 2RF montelukast 10 mg tablet 10 mg PO DAILY 90 Days Qty: 90 2RF levetiracetam 500 mg tablet 1,500 mg PO BID 90 Days Qty: 540 0RF zinc 50 mg tablet 50 mg PO DAILY
--- OUTSIDE RECORDS SUMMARY | 2023-10-30 20:08 | XMS_ITS | Continuity of Care Document ---
Author Name Unknown Organization [facility] Address Unknown Care Team Providers Care Game Farm Helper Name Role Phone Po Myranda ROLAND Primary Care Physician [phone] [facility]counter [facility] Date(s): 01/15/22 - 02/14/22 [facility] Allergies, Adverse Reactions, Alerts Substance Reaction [...] 2Admin Note: Sanofi Pasteur Diuent Lot # [id number] Exp: 01/05/2012 3Admin Note: Sanofi Pasteur Medications [...] IN THE EVENING, #450 capsule, 1 Refills, [facility], 179, cm, 03/16/21 12:20:00 EDT, Height, 94.2, [...] NO SUBSTITUTION, # 540 tablet, 3 Refills, [facility] 58[facility], 179, cm, 03/16/21 12:20:00 EDT, Height, 94.2, kg, 03/16/2112:24:00 EDT, Dry Weight Start Date: 12/11/21 Status: Ordered PHENobarbital 32.4 mg oral tablet See Instructions, 1 tablet am and 2 tablets pm. MassPat checked, # 90 tablet, 5 Refills, Maintenance, 12/13/21 13:47:00 EST, [facility]/pharmacy #[id number], 179, cm, 03/16/21 12:20:00 EDT, [...] Refills, Maintenance Start Date: 10/14/10 Stop Date: 6/4/11 Status: Ordered tylenol 1,000mg tylenol 1,000mg, Refills 0, Maintenance, 04/13/19 12:45:54 EDT, Compound Start Date: 04/13/19 Status: Ordered vitamin b vitamin b, Refills 0, Maintenance, 02/08/18 13:25:50 EDT, Compound Start Date: 02/08/18 Status: Ordered Vitamin D3 2000 intl units oral capsule 1 capsule, By Mouth, Daily, # 30 capsule, 11 Refills, [facility] #[id number], 179, cm, 03/16/21 12:20:00 EDT, Height, 94.2, [...]
--- OUTSIDE RECORDS SUMMARY | 2023-10-30 20:08 | XMS_ITS | Continuity of Care Document ---
Author Name Unknown Organization [facility] Address [address] [place] [address]- Care Team Providers Care Obstetrics Nurse Name Role Phone Po Myranda ROLAND Primary Care Physician Encounter [place] Date(s): 03/17/22 - 03/18/[address] [address]- Discharge Disposition: A-D/C Walkout Attending Physician: Not on Staff, Attending MD Admitting Physician: Not on Staff, Admitting MD Referring Physician: Not on Staff, Referring MD Allergies, Adverse Reactions, Alerts Substance Reaction Severity Status vancomycin Active Dilantin Active Protonix Active Morphine Sulfate severe abdominal and chest pain Active Latex BREAKS OUT Active Immunizations Given [...] 2Admin Note: Sanofi Pasteur Diuent Lot # [id number] Exp: 01/05/2012 3Admin Note: Sanofi Pasteur Medications [...] IN THE EVENING, #450 capsule, 1 Refills, [facility] 82125, 179, cm, 03/16/21 12:20:00 EDT, Height, 94.2, [...] NO SUBSTITUTION, # 540 tablet, 3 Refills, [facility] 69478, 179, cm, 03/16/21 12:20:00 EDT, Height, 94.2, kg, 03/16/2112:24:00 EDT, Dry Weight Start Date: 12/11/21 Status: Ordered PHENobarbital 32.4 mg oral tablet See Instructions, 1 tablet am and 2 tablets pm. MassPat checked, # 90 tablet, 5 Refills, Maintenance, 12/13/21 13:47:00 EST, [facility]/pharmacy #2339, 179, cm, 03/16/21 12:20:00 EDT, [...] Mouth, Daily, # 30 capsule, 11 Refills, [facility] #[id number], 179, cm, 03/16/21 12:20:00 EDT, Height, 94.2, [...] recent to oldest [Reference Range]: 1 2 Oxygen Saturation [94-100 %] 95 % (03/18/22 1:30 AM) 99 % (03/17/22 11:24 PM) Pulse Rate [55-90 bpm] 99 bpm *H* (03/18/22 1:30 AM) 97 bpm *H* (03/17/22 11:24 PM) Blood Pressure [90-138/55-84 mm Hg] 105/ 63mm Hg (03/18/22 1:30 AM) 114/63mm Hg (03/17/22 11:24 PM) Respiratory Rate [16-30 br/min] 18 br/mi n (03/17/22 11:24 PM) Temperature [96.8-100.4 DegF] 100 DegF (03/18/22 1:30 AM) 99.7 DegF (03/17/22 11:24 PM) Mode of Delivery (Oxygen) Room air (03/18/22 1:30 AM) Room air (03/17/22 11:24 PM) Blood pressure sites Arm, right (03/18/22 1:30 AM) Arm, left (03/17/22 11:24 PM) Temperature Route Oral (03/18/22 1:30 AM) Oral (03/17/22 11:24 PM) Social History Social History Type Response Smoking Status Current every day romeo gibbs; Tobacco user in household: Yes; Other: 7-8 ciggarettes/day mon-th, 1/2ppd fri, sat, sun; entered on: 09/11/17 Sex
--- OUTSIDE RECORDS SUMMARY | 2023-10-30 20:08 | XMS_ITS | Continuity of Care Document ---
Author Name Unknown Organization [facility] Address [address] [place] [address]- Care Team Providers Care Louver Door Assembler Name Role Phone Po Myranda ROLAND Primary Care Physician Encounter [facility] Date(s): 03/01/22 - 03/31/22 [facility] [address], [place] [address] Attending Physician: Monse Atwood Admitting Physician: [...] 2Admin Note: Sanofi Paste[employer] Diuent Lot # [id number] Exp: 01/05/2012 3Admin Note: Sanof[employer]aste[employer] Medications [...] EVENING, #450 capsule, 1 Refills, [id number], 179, cm, 03/16/21 12:20:00 EDT, Height, 94.2, [...] NO SUBSTITUTION, # 540 tablet, 3 Refills, [id number], 179, cm, 03/16/21 12:20:00 EDT, Height, 94.2, [...] Mouth, Daily, # 30 capsule, 11 Refills, [facility] #[id number], 179, cm, 03/16/21 12:20:00 EDT, Height, 94.2, [...]
--- OUTSIDE RECORDS SUMMARY | 2023-10-30 20:08 | XMS_ITS | Continuity of Care Document ---
Author Name Unknown Organization [facility] Address Unknown Care Team Providers Care Sign Designer Name Role Phone Po Myranda ROLAND Primary Care Physician Encounter [facility] [place] Date(s): 11/27/21 - 03/15/22 [facility] Attending Physician: Zeb Chawla NP Admitting Physician: Zeb Chawla NP Allergies, Adverse Reactions, Alerts Substance Reaction [...] 2Admin Note: [employer] Paste[employer] Diuent Lot # [id number] Exp: 01/05/2012 3Admin Note: Sanofi Pasteur Medications [...] IN THE EVENING, #450 capsule, 1 Refills, [id number], 179, cm, 03/16/21 12:20:00 EDT, Height, 94.2, [...] NO SUBSTITUTION, # 540 tablet, 3 Refills, [id number], 179, cm, 03/16/21 12:20:00 EDT, Height, 94.2, kg, 03/16/2112:24:00 EDT, Dry Weight Start Date: 12/11/21 Status: Ordered PHENobarbital 32.4 mg oral tablet See Instructions, 1 tablet am and 2 tablets pm. MassPat checked, # 90 tablet, 5 Refills, Maintenance, 12/13/21 13:47:00 EST, [facility]/pharmacy #[id number], 179, cm, 03/16/21 [...] Mouth, Daily, # 30 capsule, 11 Refills, [facility] #[id number], 179, cm, 03/16/21 12:20:00 EDT, Height, 94.2, [...]
--- OUTSIDE RECORDS SUMMARY | 2023-10-30 20:08 | XMS_ITS | Continuity of Care Document ---
Author Name Unknown Organization [facility] Address Unknown Care Team Providers Care Engine Oiler Name Role Phone Po Myranda ROLAND Primary Care Physician Encounter [facility] Date(s): 03/05/22 - 04/04/22 [facility] Attending Physician: Admtr, Monse Allergies, Adverse Reactions, Alerts Substance Reaction Severity [...] 2Admin Note: Sanofi Paste[employer] Diuent Lot # [id number] Exp: 01/05/2012 3Admin Note: Sanofi Pasteur Medications [...] IN THE EVENING, #450 capsule, 1 Refills, [facility], 179, cm, 03/16/21 12:20:00 EDT, Height, 94.2, [...] NO SUBSTITUTION, # 540 tablet, 3 Refills, [facility], 179, cm, 03/16/21 12:20:00 EDT, Height, 94.2, kg, 03/16/2112:24:00 EDT, Dry Weight Start Date: 12/11/21 Status: Ordered PHENobarbital 32.4 mg oral tablet See Instructions, 1 tablet am and 2 tablets pm. MassPat checked, # 90 tablet, 5 Refills, Maintenance, 12/13/21 13:47:00 EST, [facility]/pharmacy #[id number], 179, [...] Mouth, Daily, # 30 capsule, 11 Refills, [facility] #[id number], 179, cm, 03/16/21 12:20:00 EDT, Height, 94.2, [...]
[2023-10-30 20:43] LABS: Influenza A PCR NEGATIVE (Negative); Influenza B PCR NEGATIVE (Negative); Resp Syncy Virus RNA Qual PCR NEGATIVE (Negative); SARS COV2 PCR INHOUSE NEGATIVE (Negative)
[2023-10-30] MEDS: Loperamide HCl 2 MG CAPSULE 4 MG PO (22:19)
[2023-10-30] MEDS: 0.9 % Sodium Chloride 1,000 ML 999 ML IVCONT (22:19)
[2023-10-30] MEDS: Ketorolac Tromethamine 30 MG/ML VIAL IVPUSH (22:21)
[2023-10-30] MEDS: Metoclopramide HCl 10 MG/2 ML VIAL IVPUSH (22:23)
--- NOTE | 2023-10-30 22:28 | PC.NURSE ---
22G PIV placed by other RN, medicated per jan, 1L NS running. d/c pending fld administration.
== END 2023-10-31 00:26 | disposition home or self-care (01) ==
PROVIDERS: Physician Assistant Medical; Emergency Provider Emergency Medicine; PCP Internal Medicine
DX: E86.0 Dehydration (principal); J06.9 Acute upper respiratory infection, unspecified; R11.2 Nausea with vomiting, unspecified; Z20.822 Contact with and (suspected) exposure to COVID-19; Z20.828 Contact with and (suspected) exposure to other viral communicable diseases; Z79.899 Other long term (current) drug therapy
CPT/HCPCS: 0241U; 71045; 96361; 96374; 96375; 99284; J1885; J2765

== ENCOUNTER 2023-11-04 12:10 | Outpatient (AMB) | payer MEDICARE, MEDICAID, SELFPAY ==
[2023-11-04 12:30] VITALS: BP 120/82; PULSE 76; O2SAT 99; BMI 35.1
--- NOTE | 2023-11-04 12:30 | A.OFFPC_ITS ---
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 Accompanied by: Self / Same As Patient Allergies vancomycin [VANCOMYCIN] Allergy (Severe, Verified 11/04/23 12:31) ANAPHYLAXIS nitrofurantoin [From Macrobid] Allergy (Intermediate, Verified 11/04/23 12:31) Rash fluconazole [Diflucan] Allergy (Unknown, Verified 11/04/23 12:31) anaphylaxis pantoprazole [Protonix] Allergy (Unknown, Verified 11/04/23 12:31) anaphylaxis phenytoin [Dilantin] Allergy (Unknown, Verified 11/04/23 12:31) hives Medication List - Last Reconciled 11/04/23 by Myranda Benitez, albuterol sulfate 90 mcg/actuation 2 puffs inhalation Q4-6H PRN carbamazepine ER Take 2 capsules in the morning and 3 capsules in the evening orally; 30 days cholecalciferol (vitamin D3) 50 mcg PO DAILY fexofenadine (Allergy Relief (fexofenadine)) 180 mg PO DAILY fluticasone propion-salmeterol 250-50 mcg/dose (Advair Diskus) 1 inh inhalation BID folic acid 1 mg PO DAILY ibuprofen 600 mg PO Q6H PRN lansoprazole (Prevacid) 30 mg PO DAILY levetiracetam 1,500 mg (3 x 500 mg) PO BID 90 days montelukast 10 mg PO DAILY 90 days phenobarbital 32.4 mg orally; once in am and 2 at night 90 days sumatriptan succinate 50 mg PO Q2-4H PRN zinc 50 mg PO DAILY Tobacco use date assessed: 06/24/23 Dental Screening Dental Screen Date: 11/04/23 Did you have a dental visit in the last 12 months?: No Did you have a dental problem in the last 6 months where you did not have access to dental care?: No Was dental information given to patient?: Patient has dentist HPI pe HPI Details 48-year-old obese female smoker with a h istory of asthma generalized anxiety disorder and GERD last seen in June 2023. Patient is here for physical exam. Mammogram is up-to-date ER visit recently for upper respiratory symptoms 10/31/2023 diagnosis of viral syndrome.. Almost the same infection in August 2023. 10 cigarettes a day [facility] Medical History (Updated 11/04/23 @ 12:59 by Myranda Benitez MD) Obesity (BMI 30.0-34.9) PUD (peptic ulcer disease) PAO II (cervical intraepithelial neoplasia II) HPV in female Amenorrhea Head trauma Tobacco abuse Vitamin D deficiency Anxiety GERD (gastroesophageal reflux disease) Asthma Complex partial seizure Surgical History History of removal of ovarian cyst History of tubal ligation Cavernous hemangioma of brain Family History Father Parkinson disease Stroke CVD (cardiovascular disease) TIA (transient ischemic attack) Mother Non Hodgkin's lymphoma Hypertension Paternal Aunt Ovarian cancer Paternal Uncle Pancreatic cancer Social History (Updated 11/04/23 @ 12:50 by Myranda Benitez MD) Housing: House Alcohol intake: never Patient Tobacco Use Status: Former Tobacco user Tobacco use type: Cigarette Cigarette Packs Per Day: 0.3 Cigarettes Per Day: 10 e-Cigarette/Vaping Use: Never Used Second Hand Smoke Exposure: No Advance Directives Date on File: 08/23/21 Current occupational status: employed Cognitive needs: No Hearing needs: No Vision needs: Yes Female Reproductive History Menstrual Age of Menarche: 14 Questionnaire Thrive Questionnaire Date Thrive assessed: 08/16/21 MANUEL-7 AMB Questionnaire MANUEL-7 Date MANUEL - 7 assessed: 06/24/23 Source: Developed by Drs. Pk Escamilla, Vickie Irene, Sea Sosa and colleagues, with an educational sal from [employer]. Review of Systems Const Denies poor appetite and Denies weakness Eyes Denies no additional complaints ENT Reports Normal hearing present, Denies dizziness, Denies nasal congestion, Denies tinnitus and Denies sore throat Card Denies chest pain, Denies syncope, Denies rapid heart rate and Denies dyspnea Resp Denies cough and Denies dyspnea GI Denies change in stool character, Reports constipation, Denies diarrhea, Denies nausea and Denies vomiting Denies urinary frequency, Denies difficulty voiding and Denies dysuria Neuro Reports Normal hearing present, Denies confusion, Denies dizziness, Denies syncope and Denies weakness Psych Denies confusion Physical exam (Primary Care) Vital Signs: Last Vital Signs Pulse 76 11/04/23 12:30 BP 120/82 11/04/23 12:30 Pulse Ox 99 11/04/23 12:30 Oxygen Delivery Method Room Air 11/04/23 12:30 BMI result Body Mass Index 35.1 Tobacco/Smoking Status: Tobacco use Status Tobacco use date assessed 06/24/23 11/04/23 12:38 Patient Tobacco Use Status Former Tobacco user 11/04/23 12:50 Tobacco use type Cigarette 11/04/23 12:50 e-Cigarette/Vaping Use Never Used 11/04/23 12:50 Thrive Assessment: Date of Thrive Assessment Date Thrive assessed 08/16/21 11/04/23 12:38 Const General: No confusion Orientation/consciousness: No confusion HENMT Head: Yes normocephalic Ears: external ears normal and TM's normal bilaterally Face and sinus: Yes normal facial exam Mouth: moist mucous membranes Throat: Yes tonsils normal Eyes Conjunctivae: conjunctivae normal Pupils: Equal, round and reactive pupils present and Pupil accommodation reflex normal Direct Ophthalmoscopy: normal light reflex Neck Neck: No lymphadenopathy Thyroid: Thyroid normal Chest Chest palpation & inspection: normal inspection of the chest Resp Effort & Inspection: normal respiratory effort and no audible wheezes Auscultation: clear to auscultation bilaterally, no crackles, no wheezes and lung sounds not diminished Cardio Rate: regular rate Rhythm: regular rhythm Peripheral pulses: radial pulses present and dorsalis pedis present GI Palpation (GI): no masses Auscultation: normal bowel sounds and normoactive bowel sounds Rectal Exam - Female: deferred Skin General skin exam: no rashes or lesions noted Rashes: no rashes Neuro General: No confusion Cranial nerves: Yes Equal, round and reactive pupils present and Yes Normal hearing present Cognition (Neuro): normal cognition Gait exam (Neuro): Normal gait present Motor exam (neuro): 5/5 motor strength present throughout Deep tendon reflexes (DTR's): Right brachioradialis reflex intensity grade: 2+, Left brachioradialis reflex intensity grade: 2+, Right patellar reflex intensity grade: 2+ and Left patellar reflex intensity grade: 2+ Extrem General: No edema Results AMB Urinalysis, Automated UA Leukoctes 0 Jv/uL Last Edit by Tatiana Saab on 11/04/23 14:10 UA Nitrite Negative Last Edit by Tatiana Saab on 11/04/23 14:10 UA Urobilinogen 0.2 mg/dL Last Edit by Tatiana Saab on 11/04/23 14:10 UA Protein 0 mg/dL Last Edit by Tatiana Saab on 11/04/23 14:10 UA pH 6.0 Last Edit by Tatiana Saab on 11/04/23 14:10 UA Blood 0 Smith/uL Last Edit by Tatiana Saab on 11/04/23 14:10 UA Specific Moran 1.015 Last Edit by Tatiana Saab on 11/04/23 14:10 UA Ketone Negative Last Edit by Tatiana Saab on 11/04/23 14:10 UA Bilirubin 0 mg/dL Last Edit by Tatiana Saab on 11/04/23 14:10 UA Glucose 0 mg/dL Last Edit by Tatiana Saab on 11/04/23 14:10 Assessment and Plan Assessment & Plan (1) Annual physical exam: Code(s): Z00.00 - Encounter for general adult medical examination without abnormal findings Plan: Reminded patient about colon cancer screening (2) Tobacco abuse: Comment: 1/2 pack a day 06/2023 Code(s): Z72.0 - Tobacco use Plan: Patient is strongly advised to stop smoking! (3) Complex partial seizure: Comment: With cavernous hemangioma resection. Dr. Tran, Dr. 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 (5) GERD (gastroesophageal reflux disease): Code(s): K21.9 - Gastro-esophageal reflux disease without esophagitis Plan: Patient advised to stop smoking! Avoid the foods that causes that usually spicy foods, tomato products, juices, coffee, soda and foods that your sensitive to. After eating do not lie down, allow 3-4 hours before in lie down. And keep the head of bed above 30 degrees to avoid the acid from going up. (6) Generalized anxiety disorder: Comment: Adjustment disorder with mixed anxiety and depressed mood July 2020 Code(s): F41.1 - Generalized anxiety disorder Plan: Continue with present medication (7) Folic acid deficiency: Code(s): E53.8 - Deficiency of other specified B group vitamins Plan: Continue with folic acid (8) Obesity (BMI 30-39.9): Code(s): E66.9 - Obesity, unspecified Plan: Diet and exercise (9) Colon cancer screening: Code(s): Z12.11 - Encounter for screening for malignant neoplasm of colon (10) Dysuria: Code(s): R30.0 - Dysuria (11) Onychomycosis: Code(s): B35.1 - Tinea unguium Orders: Orders Comprehensive Met. Panel 1 Month B35.1 - Tinea unguium AMB Urinalysis Automated Today R30.0 - Dysuria, Z13.9 - Encounter for screening, unspecified Medications: New terbinafine HCl 250 mg PO DAILY 12 weeks 84 tabs 1RF B35.1 - Tinea unguium Coding Level of Care Code Est Pt Prev Care 40-64y(34593) Diagnoses Annual physical exam Z00.00 Tobacco abuse Z72.0 Complex partial seizure G40.209 Asthma J45.909 GERD (gastroesophageal reflux disease) K21.9 Generalized anxiety disorder F41.1 Folic acid deficiency E53.8 Obesity (BMI 30-39.9) E66.9 Colon cancer screening Z12.11 Dysuria R30.0 Onychomycosis B35.1
== END 2023-11-04 13:09 | disposition home or self-care (01) ==
PROVIDERS: PCP Internal Medicine; Visit Provider Internal Medicine
DX: Z00.00 Encounter for general adult medical examination without abnormal findings (principal); G40.209 Localization-related (focal) (partial) symptomatic epilepsy and epileptic syndromes with complex partial seizures, not intractable, without status epilepticus; R30.0 Dysuria; F17.210 Nicotine dependence, cigarettes, uncomplicated; K21.9 Gastro-esophageal reflux disease without esophagitis; F41.1 Generalized anxiety disorder; E53.8 Deficiency of other specified B group vitamins; B35.1 Tinea unguium
CPT/HCPCS: 81003; 99396

== ENCOUNTER 2023-11-13 19:17 | Emergency (ER) | payer MEDICARE, MEDICAID, SELFPAY ==
[2023-11-13 19:41] VITALS: BP 146/58; PULSE 91; RESP 16; TEMP 36.4; O2SAT 97; BMI 33.8
--- NOTE | 2023-11-13 19:41 | ED.GENADULT ---
HPI - General Adult General Chief complaint: Upper Respiratory Symptoms Stated complaint: Diff breathing Time Seen by Provider: 11/13/23 20:23 Source: patient and old records reviewed Mode of arrival: ambulatory Limitations: no limitations History of Present Illness HPI narrative: 48 yo female with PMH of GERD, seizures, asthma, anxiety - sick since 10/30 with cough and wheezing not improving - at this time saw us and PCP with no improvement in cough, wheezing and feeling chest tightness she is not improving with OTC and INH. Came here tonight as she cannot take it. Has not been on prednisone or abx complaint: wheezing Onset (ago): day(s) (10+) Location: chest Radiation: non-radiation Severity: moderate Relieving factors: none Exacerbating factors: other (coughing, exertion) Associated symptoms: cough, malaise and other (wheezing) Treatments prior to arrival: other (INH) Related Data Home Medications Medication Instructions Recorded Confirmed lansoprazole 30 mg capsule,delayed 30 mg PO DAILY 11/12/20 11/04/23 release (Prevacid) zinc 50 mg tablet 50 mg PO DAILY 03/17/22 11/04/23 Previous Rx's Medication Instructions Recorded sumatriptan succinate 50 mg tablet 50 mg PO Q2-4H PRN migraine 03/18/22 headache #14 tabs ibuprofen 600 mg tablet 600 mg PO Q6H PRN pain #30 tabs 09/06/22 carbamazepine 200 mg See Rx Instructions PO .COMPLEX 30 06/09/23 capsule,extended release [id number] days #150 caps fexofenadine 180 mg tablet 180 mg PO DAILY #90 tabs 06/24/23 (Allergy Relief (fexofenadine)) levetiracetam 500 mg tablet 1,500 mg (3 x 500 mg) PO BID 90 06/24/23 days #540 tabs montelukast 10 mg tablet 10 mg PO DAILY 90 days #90 tabs 06/24/23 phenobarbital 32.4 mg tablet 32.4 mg PO .COMPLEX 90 days #270 06/24/23 tabs folic acid 1 mg tablet 1 mg PO DAILY #90 tabs 06/25/23 albuterol sulfate 90 mcg/actuation 2 puff inhalation Q4-6H PRN for 09/15/23 aerosol inhaler wheezing #8.5 ea cholecalciferol (vitamin D3) 50 50 mcg PO DAILY #90 caps 10/02/23 mcg (2,000 unit) capsule fluticasone 250 mcg-salmeterol 50 1 inh inhalation BID #60 ea 10/30/23 mcg/dose blistr powdr for inhalation (Advair Diskus) terbinafine HCl 250 mg tablet 250 mg PO DAILY 12 weeks #84 tabs 11/04/23 azithromycin 250 mg tablet 250 mg PO DAILY 4 days #4 tabs 11/13/23 prednisone 20 mg tablet 40 mg (2 x 20 mg) PO DAILY 4 days 11/13/23 #8 tabs Allergies Allergy/AdvReac Type Severity Reaction Status Date / Time vancomycin [VANCOMYCIN] Allergy Severe ANAPHYLAXIS Verified 11/04/23 12:31 nitrofurantoin Allergy Intermediate Rash Verified 11/04/23 12:31 [From Macrobid] fluconazole [Diflucan] Allergy Unknown anaphylaxis Verified 11/04/23 12:31 pantoprazole [Protonix] Allergy Unknown anaphylaxis Verified 11/04/23 12:31 phenytoin [Dilantin] Allergy Unknown hives Verified 11/04/23 12:31 Review of Systems Review of Systems: Constitutional : No Fever, No Chills ENT/Mouth : No Hoarseness, No sore throat, No Rhinorrhea Eyes: No Redness, No Discharge, No Vision Changes Cardiovascular : No Chest Pain, positive SOB, positive Dyspnea on Exertion, No Edema Respiratory : positive Cough, No Sputum, positive Wheezing, Gastrointestinal : No Nausea, No Vomiting, No Diarrhea, No abdominal Pain Genitourinary : No Dysuria, No Hematuria Musculoskeletal : No joint pain, No Myalgias Skin : No rash Neuro : No Weakness, No Numbness, No Headache Psych : No anxiety, depression All other systems reviewed and are negative PMFSH Past Medical History Attestation statement: The following information was validated with the patient. Source: old records reviewed Onset Date is defined in the Problem List Problems that require an onset date and time if occurred within 24 hrs of arrival to the ED Aortic Dissection and Rupture; Neurologic impairment; Cardiopulmonary Arrest; Endotracheal Intubation; Insertion or Replacement of Mechanical Circulatory Assist Device Medical History Obesity (BMI 30.0-34.9) PUD (peptic ulcer disease) PAO II (cervical intraepithelial neoplasia II) HPV in female Amenorrhea Head trauma Tobacco abuse Vitamin D deficiency Anxiety GERD (gastroesophageal reflux disease) Asthma Complex partial seizure Surgical History History of removal of ovarian cyst History of tubal ligation Cavernous hemangioma of brain Family History Family History Father Parkinson disease Stroke CVD (cardiovascular disease) TIA (transient ischemic attack) Mother Non Hodgkin's lymphoma Hypertension Paternal Aunt Ovarian cancer Paternal Uncle Pancreatic cancer Social History Social History Housing: House Alcohol intake: never Patient Tobacco Use Status: Former Tobacco user Tobacco use type: Cigarette Cigarette Packs Per Day: 0.3 Cigarettes Per Day: 10 e-Cigarette/Vaping Use: Never Used Second Hand Smoke Exposure: No Advance Directives: Yes Advance Directives on File: Yes Advance Directives Date on File: 08/23/21 Current occupational status: employed Cognitive needs: No Hearing needs: No Vision needs: Yes Physical Exam ED Vital Signs: Vital Signs - 24 hr 11/13/23 19:41 11/13/23 20:22 Temperature 97.6 F 97.8 F Pulse Rate 91 86 Respiratory Rate 16 18 Blood Pressure 146/58 H 122/89 Pulse Oximetry 97 99 Oxygen Delivery Method Room Air Room Air BMI result Body Mass Index 33.8 Appearance: Alert. Oriented X3. No acute distress. Eyes: Pupils equal, round and reactive to light. ENT: Pharynx normal. Neck: Normal inspection. Neck supple. CVS: Normal heart rate and rhythm. Pulses normal. Respiratory: No respiratory distress. Breath sounds mildly diminished faint rhonchi Abdomen: Soft and nontender. Skin: Skin warm and dry. Normal skin color. Normal skin turgor. Extremities: No lower extremity edema. No calf ttp Neuro: Oriented X 3. No motor deficit. No sensory deficit. Course Course Course Narrative: This is an RME: Additional HPI, ROS, PE not included below will be deferred to primary provider. 48 yo f presents w/ dehydration was seen here last week and not feeling better. PCP wont see her she states becuase shes sick. Also reports chest discomfort/ pressure Medical Decision Making Medical Decision Making MDM Narrative: 48 yo female with GERD, asthma, seizures here with c/o 10+ days of URI symptoms persistent wheezing, cough, dyspnea no improvement with OTC and INH at this time given history it is reasonable to obtain labs, CXR, EKG, repeat viral panel. I do not suspect VTE this seems like URI or viral syndrome. If negative workup will start on steroids and azithromycin with reasons to return. Differential Diagnosis Differential Diagnoses: The differential diagnosis associated with the presentation includes viral sydnrome, pneumonia, bronchitis Admission/Observation Consideration of admission/observation: Escalation of care including admission/observation considered stable labs, CXR no hypoxia can be managed as outpatient Lab Data MDM Lab Attestation statement: I reviewed the patient's lab results. 11/13/23 19:56 11/13/23 19:56 Labs: Lab Results 11/13/23 Range/Units 19:56 WBC 9.0 (4.8-10.8) X10*3/uL RBC 3.99 L (4.20-5.50) X10*6/uL Hgb 11.6 L (12.0-16.0) g/dl Hct 33.3 L (37.0-47.0) % MCV 83.5 (80.0-98.0) fL MCH 29.1 (27.0-33.0) pg MCHC 34.8 (31.0-35.0) g/dl RDW 13.2 (11.0-16.0) % Plt Count 353 (160-400) X10*3/uL MPV 8.3 L (9.4-12.3) fL Immature Gran % (Auto) 0.2 (0.0-0.4) % Neut % (Auto) 51.8 (45-73) % Lymph % (Auto) 35.5 (20-40) % [place] % (Auto) 7.3 (2-11) % Eos % (Auto) 4.8 H (0-4) % Baso % (Auto) 0.4 (0-2) % Lymph # (Auto) 3.2 (1.2-4.9) X10*3/uL [place] # (Auto) 0.7 (0.1-1.2) X10*3/uL Eos # (Auto) 0.4 (0.0-0.4) X10*3/uL Baso # (Auto) 0.0 (0.0-0.2) X10*3/uL Abs Immat Gran (auto) 0.02 (0.00-0.03) X10*3/uL Absolute Neuts (auto) 4.7 (2.0-8.3) x10*3/uL Absolute Nucleated RBC 0.000 (0.0-0.012) X10*3/uL Nucleated RBC % (auto) 0.0 (0.0-0.2) /100WBC PT 11.1 (11.1-13.3) SEC INR 0.9 (0.9-1.1) Sodium 130 L (135-145) mmol/L Potassium 3.8 (3.3-5.1) mmol/L Chloride 96 (96-108) mmol/L Carbon Dioxide 26 (22-29) mmol/L Anion Gap 12 (12-20) BUN 5 L (9-16) mg/dL Creatinine 0.69 (0.5-1.4) mg/dL Estim Creat Clear Calc 136.1 Estimated GFR > 60 Random Glucose 90 (60-115) mg/dL Calcium 9.1 (8.4-10.2) mg/dL Magnesium 2.1 (1.6-2.6) mg/dL Total Bilirubin 0.1 (0.0-1.0) mg/dL AST 20 (5-31) U/L ALT 15 (0-31) U/L Alkaline Phosphatase 105 (39-117) U/L Troponin I High Sens < 2.7 (<3.5-17.0) ng/L B-Natriuretic Peptide 14 (<100) pg/mL Total Protein 7.6 (6.5-8.0) g/dL Albumin 4.2 (3.5-5.0) g/dL Influenza Type A (PCR) NEGATIVE (Negative) Influenza Type B (PCR) NEGATIVE (Negative) RSV RNA Qual (PCR) NEGATIVE (Negative) SARS-CoV-2 RNA (RT-PCR) NEGATIVE (Negative) Independent Interpretation I performed an independent interpretation of an: EKG and Plain X-Ray (normal ) Interpretation: Rate: 73 Rhythm: NSR [place]: normal Normal P waves. Normal JINNY. Normal QRS complex. ST T wave : normal no FRANCI qTC: 453 prior studies: no acute ischemia The study has been interpreted contemporaneously by me. . Radiology Impression Discussion of test interpretation with radiology: I have reviewed the radiologist's reading. External Record Review External record reviewed: Inpatient record Prescription Management I considered prescription management with: Antibiotic and Other Discharge Plan Discharge Clinical Impression: Bronchitis Patient Disposition: Home, Self-Care Instructions: Acute Bronchitis (ED) Additional Instructions: viral panel negative - only concern is Na is 130 monitor with doctor chest xray is negative please return for worsening symptoms, fevers, inability to eat or drink or any other concerns. Prescriptions: New prednisone 20 mg tablet 40 mg PO DAILY 4 Days Qty: 8 0RF azithromycin 250 mg tablet 250 mg PO DAILY 4 Days Qty: 4 0RF Rx Instructions: start on day 2 of therapy No Action sumatriptan succinate 50 mg tablet 50 mg PO Q2-4H PRN (Reason: migraine headache) Qty: 14 11RF Rx Instructions: do not exceed 4 doses per 24 hrs carbamazepine 200 mg capsule, ER multiphase 12 hr See Rx Instructions PO .COMPLEX 30 Days Qty: 150 11RF Rx Instructions: Take 2 capsules in the morning and 3 capsules in the evening orally; folic acid 1 mg tablet 1 mg PO DAILY Qty: 90 1RF albuterol sulfate 90 mcg/actuation HFA aerosol inhaler 2 puff inhalation Q4-6H PRN (Reason: for wheezing) Qty: 8.5 0RF cholecalciferol (vitamin D3) 50 mcg (2,000 unit) capsule 50 mcg PO DAILY Qty: 90 0RF ibuprofen 600 mg tablet 600 mg PO Q6H PRN (Reason: pain) Qty: 30 0RF fluticasone propion-salmeterol [Advair Diskus] 250-50 mcg/dose blister with device 1 inh inhalation BID Qty: 60 0RF lansoprazole [Prevacid] 30 mg capsule,delayed release(DR/EC) 30 mg PO DAILY phenobarbital 32.4 mg tablet 32.4 mg PO .COMPLEX 90 Days Qty: 270 3RF Rx Instructions: 32.4 mg orally; once in am and 2 at night fexofenadine [Allergy Relief (fexofenadine)] 180 mg tablet 180 mg PO DAILY Qty: 90 2RF montelukast 10 mg tablet 10 mg PO DAILY 90 Days Qty: 90 2RF levetiracetam 500 mg tablet 1,500 mg PO BID 90 Days Qty: 540 0RF zinc 50 mg tablet 50 mg PO DAILY terbinafine HCl 250 mg tablet 250 mg PO DAILY 84 Days Qty: 84 1RF
[2023-11-13 20:22] VITALS: BP 122/89; PULSE 86; RESP 18; TEMP 36.6; O2SAT 99
--- NOTE | 2023-11-13 20:30 | ED.SOB ---
HPI - SOB/Dyspnea General Chief Complaint: Upper Respiratory Symptoms Stated Complaint: Diff breathing Time Seen by Provider: 11/13/23 20:23 Source: patient and old records reviewed Mode of arrival: ambulatory Limitations: no limitations History of Present Illness HPI Narrative: 48 yo female with PMH of seizure disorder, anxiety, GERD, asthma seen here 10/30 normal CXR comes back today wit elicited complaint: shortness of breath and cough Pertinent past history: asthma Onset (ago): day(s) Related Data Home Medications Medication Instructions Recorded Confirmed lansoprazole 30 mg capsule,delayed 30 mg PO DAILY 11/12/20 11/04/23 release (Prevacid) zinc 50 mg tablet 50 mg PO DAILY 03/17/22 11/04/23 Previous Rx's Medication Instructions Recorded sumatriptan succinate 50 mg tablet 50 mg PO Q2-4H PRN migraine 03/18/22 headache #14 tabs ibuprofen 600 mg tablet 600 mg PO Q6H PRN pain #30 tabs 09/06/22 carbamazepine 200 mg See Rx Instructions PO .COMPLEX 30 06/09/23 capsule,extended release [id number] days #150 caps fexofenadine 180 mg tablet 180 mg PO DAILY #90 tabs 06/24/23 (Allergy Relief (fexofenadine)) levetiracetam 500 mg tablet 1,500 mg (3 x 500 mg) PO BID 90 06/24/23 days #540 tabs montelukast 10 mg tablet 10 mg PO DAILY 90 days #90 tabs 06/24/23 phenobarbital 32.4 mg tablet 32.4 mg PO .COMPLEX 90 days #270 06/24/23 tabs folic acid 1 mg tablet 1 mg PO DAILY #90 tabs 06/25/23 albuterol sulfate 90 mcg/actuation 2 puff inhalation Q4-6H PRN for 09/15/23 aerosol inhaler wheezing #8.5 ea cholecalciferol (vitamin D3) 50 50 mcg PO DAILY #90 caps 10/02/23 mcg (2,000 unit) capsule fluticasone 250 mcg-salmeterol 50 1 inh inhalation BID #60 ea 10/30/23 mcg/dose blistr powdr for inhalation (Advair Diskus) terbinafine HCl 250 mg tablet 250 mg PO DAILY 12 weeks #84 tabs 11/04/23 azithromycin 250 mg tablet 250 mg PO DAILY 4 days #4 tabs 11/13/23 prednisone 20 mg tablet 40 mg (2 x 20 mg) PO DAILY 4 days 11/13/23 #8 tabs Allergies Allergy/AdvReac Type Severity Reaction Status Date / Time vancomycin [VANCOMYCIN] Allergy Severe ANAPHYLAXIS Verified 11/04/23 12:31 nitrofurantoin Allergy Intermediate Rash Verified 11/04/23 12:31 [From Macrobid] fluconazole [Diflucan] Allergy Unknown anaphylaxis Verified 11/04/23 12:31 pantoprazole [Protonix] Allergy Unknown anaphylaxis Verified 11/04/23 12:31 phenytoin [Dilantin] Allergy Unknown hives Verified 11/04/23 12:31 [facility] Past Medical History Source: old records reviewed Onset Date is defined in the Problem List Problems that require an onset date and time if occurred within 24 hrs of arrival to the ED Aortic Dissection and Rupture; Neurologic impairment; Cardiopulmonary Arrest; Endotracheal Intubation; Insertion or Replacement of Mechanical Circulatory Assist Device Medical History Obesity (BMI 30.0-34.9) PUD (peptic ulcer disease) PAO II (cervical intraepithelial neoplasia II) HPV in female Amenorrhea Head trauma Tobacco abuse Vitamin D deficiency Anxiety GERD (gastroesophageal reflux disease) Asthma Complex partial seizure Surgical History History of removal of ovarian cyst History of tubal ligation Cavernous hemangioma of brain Family History Family History Father Parkinson disease Stroke CVD (cardiovascular disease) TIA (transient ischemic attack) Mother Non Hodgkin's lymphoma Hypertension Paternal Aunt Ovarian cancer Paternal Uncle Pancreatic cancer Social History Social History Housing: House Alcohol intake: never Patient Tobacco Use Status: Former Tobacco user Tobacco use type: Cigarette Cigarette Packs Per Day: 0.3 Cigarettes Per Day: 10 e-Cigarette/Vaping Use: Never Used Second Hand Smoke Exposure: No Advance Directives: Yes Advance Directives on File: Yes Advance Directives Date on File: 08/23/21 Current occupational status: employed Cognitive needs: No Hearing needs: No Vision needs: Yes Physical Exam Vital Signs: Vital Signs: Last Vital Signs Temp 97.8 F 11/13/23 20:22 Pulse 86 11/13/23 20:22 Resp 18 11/13/23 20:22 BP 122/89 11/13/23 20:22 Pulse Ox 99 11/13/23 20:22 O2 Del Method Room Air 11/13/23 20:22 BMI result Body Mass Index 33.8 Medications Administered Discontinued Medications Generic Name Dose Route Start Last Admin Trade Name Dawn PRN Reason Stop Dose Admin Azithromycin 500 mg 11/13/23 21:11 11/13/23 21:16 Azithromycin 500 Mg Tablet PO 11/13/23 21:12 500 mg ONCE ONE Administration Prednisone 40 mg 11/13/23 21:11 11/13/23 21:16 Prednisone 20 Mg Tablet PO 11/13/23 21:12 40 mg ONCE ONE Administration Medical Decision Making Medical Decision Making [facility] Narrative: 48 yo female with PMH of seizure disorder, anxiety, GERD, asthma Differential Diagnosis Differential Diagnoses: The differential diagnosis associated with the presentation includes Admission/Observation Consideration of admission/observation: Escalation of care including admission/observation considered Lab Data [facility] Lab Attestation statement: I reviewed the patient's lab results. 11/13/23 19:56 11/13/23 19:56 Labs: Lab Results 11/13/23 Range/Units 19:56 WBC 9.0 (4.8-10.8) X10*3/uL RBC 3.99 L (4.20-5.50) X10*6/uL Hgb 11.6 L (12.0-16.0) g/dl Hct 33.3 L (37.0-47.0) % MCV 83.5 (80.0-98.0) fL MCH 29.1 (27.0-33.0) pg MCHC 34.8 (31.0-35.0) g/dl RDW 13.2 (11.0-16.0) % Plt Count 353 (160-400) X10*3/uL MPV 8.3 L (9.4-12.3) fL Immature Gran % (Auto) 0.2 (0.0-0.4) % Neut % (Auto) 51.8 (45-73) % Lymph % (Auto) 35.5 (20-40) % [place] % (Auto) 7.3 (2-11) % Eos % (Auto) 4.8 H (0-4) % Baso % (Auto) 0.4 (0-2) % Lymph # (Auto) 3.2 (1.2-4.9) X10*3/uL [place] # (Auto) 0.7 (0.1-1.2) X10*3/uL Eos # (Auto) 0.4 (0.0-0.4) X10*3/uL Baso # (Auto) 0.0 (0.0-0.2) X10*3/uL Abs Immat Gran (auto) 0.02 (0.00-0.03) X10*3/uL Absolute Neuts (auto) 4.7 (2.0-8.3) x10*3/uL Absolute Nucleated RBC 0.000 (0.0-0.012) X10*3/uL Nucleated RBC % (auto) 0.0 (0.0-0.2) /100WBC PT 11.1 (11.1-13.3) SEC INR 0.9 (0.9-1.1) Sodium 130 L (135-145) mmol/L Potassium 3.8 (3.3-5.1) mmol/L Chloride 96 (96-108) mmol/L Carbon Dioxide 26 (22-29) mmol/L Anion Gap 12 (12-20) BUN 5 L (9-16) mg/dL Creatinine 0.69 (0.5-1.4) mg/dL Estim Creat Clear Calc 136.1 Estimated GFR > 60 Random Glucose 90 (60-115) mg/dL Calcium 9.1 (8.4-10.2) mg/dL Magnesium 2.1 (1.6-2.6) mg/dL Total Bilirubin 0.1 (0.0-1.0) mg/dL AST 20 (5-31) U/L ALT 15 (0-31) U/L Alkaline Phosphatase 105 (39-117) U/L Troponin I High Sens < 2.7 (<3.5-17.0) ng/L B-Natriuretic Peptide 14 (<100) pg/mL Total Protein 7.6 (6.5-8.0) g/dL Albumin 4.2 (3.5-5.0) g/dL Influenza Type A (PCR) NEGATIVE (Negative) Influenza Type B (PCR) NEGATIVE (Negative) RSV RNA Qual (PCR) NEGATIVE (Negative) SARS-CoV-2 RNA (RT-PCR) NEGATIVE (Negative) Independent Interpretation I performed an independent interpretation of an: EKG and Plain X-Ray (normal ) Radiology Impression Discussion of test interpretation with radiology: I have reviewed the radiologist's reading. External Record Review External record reviewed: Inpatient record Discharge Plan Discharge Clinical Impression: Bronchitis Patient Disposition: Home, Self-Care Instructions: Acute Bronchitis (ED) Additional Instructions: viral panel negative - only concern is Na is 130 monitor with doctor chest xray is negative please return for worsening symptoms, fevers, inability to eat or drink or any other concerns. Prescriptions: New prednisone 20 mg tablet 40 mg PO DAILY 4 Days Qty: 8 0RF azithromycin 250 mg tablet 250 mg PO DAILY 4 Days Qty: 4 0RF Rx Instructions: start on day 2 of therapy No Action sumatriptan succinate 50 mg tablet 50 mg PO Q2-4H PRN (Reason: migraine headache) Qty: 14 11RF Rx Instructions: do not exceed 4 doses per 24 hrs carbamazepine 200 mg capsule, ER multiphase 12 hr See Rx Instructions PO .COMPLEX 30 Days Qty: 150 11RF Rx Instructions: Take 2 capsules in the morning and 3 capsules in the evening orally; folic acid 1 mg tablet 1 mg PO DAILY Qty: 90 1RF albuterol sulfate 90 mcg/actuation HFA aerosol inhaler 2 puff inhalation Q4-6H PRN (Reason: for wheezing) Qty: 8.5 0RF cholecalciferol (vitamin D3) 50 mcg (2,000 unit) capsule 50 mcg PO DAILY Qty: 90 0RF ibuprofen 600 mg tablet 600 mg PO Q6H PRN (Reason: pain) Qty: 30 0RF fluticasone propion-salmeterol [Advair Diskus] 250-50 mcg/dose blister with device 1 inh inhalation BID Qty: 60 0RF lansoprazole [Prevacid] 30 mg capsule,delayed release(DR/EC) 30 mg PO DAILY phenobarbital 32.4 mg tablet 32.4 mg PO .COMPLEX 90 Days Qty: 270 3RF Rx Instructions: 32.4 mg orally; once in am and 2 at night fexofenadine [Allergy Relief (fexofenadine)] 180 mg tablet 180 mg PO DAILY Qty: 90 2RF montelukast 10 mg tablet 10 mg PO DAILY 90 Days Qty: 90 2RF levetiracetam 500 mg tablet 1,500 mg PO BID 90 Days Qty: 540 0RF zinc 50 mg tablet 50 mg PO DAILY terbinafine HCl 250 mg tablet 250 mg PO DAILY 84 Days Qty: 84 1RF Interventions: ED Discharge Assessment Last Done: 11/13/23 21:20 Discharge Date/Time: 11/13/23 21:21
[2023-11-13 20:40] LABS: Influenza A PCR NEGATIVE (Negative); Influenza B PCR NEGATIVE (Negative); Resp Syncy Virus RNA Qual PCR NEGATIVE (Negative); SARS COV2 PCR INHOUSE NEGATIVE (Negative)
== END 2023-11-13 21:21 | disposition home or self-care (01) ==
PROVIDERS: Physician Assistant; Emergency Provider Emergency Medicine; PCP Internal Medicine
DX: J40 Bronchitis, not specified as acute or chronic (principal); R06.02 Shortness of breath; R05.9 Cough, unspecified; Z79.899 Other long term (current) drug therapy; Z20.822 Contact with and (suspected) exposure to COVID-19; Z20.828 Contact with and (suspected) exposure to other viral communicable diseases
CPT/HCPCS: 0241U; 36415; 71045; 80053; 83735; 83880; 84484; 85025; 85610; 93005; 99283

== ENCOUNTER → 2023-11-13 20:31 | Outpatient (BNV) | payer MEDICARE, MEDICAID, SELFPAY | PROVIDERS: Emergency Provider Emergency Medicine; PCP Internal Medicine; Visit Provider Internal Medicine Cardiovascular Disease | DX: R06.02 Shortness of breath (principal) | CPT/HCPCS: 93010 ==

== ENCOUNTER 2023-11-18 15:29 | Outpatient (AMB) | payer MEDICARE, MEDICAID, SELFPAY ==
--- NOTE | 2023-11-18 15:21 | MHC.PC.OV ---
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 Allergies vancomycin [VANCOMYCIN] Allergy (Severe, Verified 11/18/23 15:22) ANAPHYLAXIS nitrofurantoin [From Macrobid] Allergy (Intermediate, Verified 11/18/23 15:22) Rash fluconazole [Diflucan] Allergy (Unknown, Verified 11/18/23 15:22) anaphylaxis pantoprazole [Protonix] Allergy (Unknown, Verified 11/18/23 15:22) anaphylaxis phenytoin [Dilantin] Allergy (Unknown, Verified 11/18/23 15:22) hives Medication List - Last Reconciled 11/18/23 by Myranda Benitez, albuterol sulfate 90 mcg/actuation 2 puffs inhalation Q4-6H PRN amoxicillin 500 mg PO TID azithromycin 250 mg PO DAILY 4 days benzonatate 200 mg PO BID-TID PRN carbamazepine ER Take 2 capsules in the morning and 3 capsules in the evening orally; 30 days cholecalciferol (vitamin D3) 50 mcg PO DAILY fexofenadine (Allergy Relief (fexofenadine)) 180 mg PO DAILY fluticasone propion-salmeterol 250-50 mcg/dose (Advair Diskus) 1 inh inhalation BID folic acid 1 mg PO DAILY ibuprofen 600 mg PO Q6H PRN lansoprazole (Prevacid) 30 mg PO DAILY levetiracetam 1,500 mg (3 x 500 mg) PO BID 90 days montelukast 10 mg PO DAILY 90 days phenobarbital 32.4 mg orally; once in am and 2 at night 90 days prednisone 4 tabs QD x 2 days then 3 tabs QD x 2 days then 2 tabs Qd x 2 days then 1 tab QD x 2 days PO daily; sumatriptan succinate 50 mg PO Q2-4H PRN terbinafine HCl 250 mg PO DAILY 12 weeks zinc 50 mg PO DAILY Tobacco use date assessed: 11/18/23 Dental Screening Dental Screen Date: 11/18/23 Did you have a dental visit in the last 12 months?: No Did you have a dental problem in the last 6 months where you did not have access to dental care?: No Was dental information given to patient?: Patient has dentist HPI persistent cough HPI Details 48-year-old obese female smoker with a history of seizures asthma GERD generalized anxiety disorder coming in for follow-up through Telehealth last seen in 11/04/2023 for physical exam. Review of the notes in 11/13/2023 ER visit for cough and wheezing diagnosis of bronchitis and was prescribed prednisone and Zithromax.PAteint states that she still keeps on coughing and knows z manav does not work for her. she is asking for Amox. [facility] Medical History (Updated 11/18/23 @ 16:22 by Myranda Benitez MD) Asthma exacerbation Obesity (BMI 30.0-34.9) PUD (peptic ulcer disease) PAO II (cervical intraepithelial neoplasia II) HPV in female Amenorrhea Head trauma Tobacco abuse Vitamin D deficiency Anxiety GERD (gastroesophageal reflux disease) Asthma Complex partial seizure Surgical History History of removal of ovarian cyst History of tubal ligation Cavernous hemangioma of brain Family History Father Parkinson disease Stroke CVD (cardiovascular disease) TIA (transient ischemic attack) Mother Non Hodgkin's lymphoma Hypertension Paternal Aunt Ovarian cancer Paternal Uncle Pancreatic cancer Social History Housing: House Alcohol intake: never Patient Tobacco Use Status: Former Tobacco user Tobacco use type: Cigarette Cigarette Packs Per Day: 0.3 Cigarettes Per Day: 10 e-Cigarette/Vaping Use: Never Used Second Hand Smoke Exposure: No Advance Directives Date on File: 08/23/21 Current occupational status: employed Cognitive needs: No Hearing needs: No Vision needs: Yes Female Reproductive History Menstrual Age of Menarche: 14 Questionnaire PHQ-9 Over the last 2 weeks, how often have you been bothered by any of the following problems? 1. Little interest or pleasure in doing things: not at all 2. Feeling down, depressed, or hopeless: not at all 3. Trouble falling or staying asleep, or sleeping too much: not at all 4. Feeling tired or having little energy: not at all 5. Poor appetite or overeating: not at all 6. Feeling bad about yourself - or that you are a failure or have let yourself or your family down: not at all 7. Trouble concentrating on things, such as reading the newspaper or watching television: not at all 8. Moving or speaking so slowly that other people could have noticed. Or the opposite - being so fidgety or restless that you have been moving around a lot more than usual: not at all 9. Thoughts that you would be better off or of hurting yourself in some way: not at all Total score: 0 Depression Screening Interpretation: Negative Depression Screening Done: Yes Source: Developed by Drs. Pk Escamilla, Vickie Irene, Sea Sosa and colleagues, with an educational sal from [employer]. Thrive Questionnaire Date Thrive assessed: 11/18/23 I am a: Patient What is your living situation today?: I have a steady place to live Within the past 12 months, did the food you bought not last and you didn't have the money to get more?: Never true Within the past 12 months, did you worry whether your food would run out before you got money to buy more?: Never true Do you have trouble paying for medicines?: No Do you have trouble getting transportation to medical appointments?: No Do you have trouble paying your heating and electricity bill?: No Do you have trouble taking care of your child, family member or friend?: No Do you have trouble with day-to-day activities such as bathing, preparing meals, shopping, managing finances, etc.?: No Are you currently unemployed and looking for a job?: No Are you interested in more education?: No Please select the resources that you would like help with: None AUDIT C Alcohol Use Questionnaire (AUDIT-C) 1. How often do you have a drink containing alcohol?: Never Total Score: 0 Score Reviewed/Action Taken: No MANUEL-7 AMB Questionnaire MANUEL-7 Date MANUEL - 7 assessed: 11/18/23 Feeling nervous, anxious, or on edge: 0 = Not at all Not being able to stop or control worryin = Not at all Worrying too much about different things: 0 = Not at all Trouble relaxin = Not at all Being so restless that it is hard to sit still: 0 = Not at all Becoming easily annoyed or irritable: 0 = Not at all Feeling afraid as if something awful might happen: 0 = Not at all Total MANUEL-7 score (0-4 normal; 5-9 mild; 10-14 moderate; 15-21 severe): 0 Source: Developed by Drs. Pk Escamilla, Vickie Irene, Sea Sosa and colleagues, with an educational sal from [employer]. Physical exam (Primary Care) BMI result Body Mass Index 33.7 Tobacco/Smoking Status: Tobacco use Status Tobacco use date assessed 11/18/23 11/18/23 15:24 Patient Tobacco Use Status Former Tobacco user 11/18/23 15:21 Tobacco use type Cigarette 11/18/23 15:21 e-Cigarette/Vaping Use Never Used 11/18/23 15:21 PHQ-9: PHQ-9 Score PHQ-9: Total score 0 11/18/23 15:28 Depression Screening Interpretation: Negative Thrive Assessment: Date of Thrive Assessment Date Thrive assessed 11/18/23 11/18/23 15:24 Telehealth Telehealth Location of provider rendering services: practice address Location of patient: address on file Patient Identification confirmed using: Name, : Yes Telehealth method: voice only Patient verbally consented to treatment: Yes Patient verbally consented to billing insurance company: Yes Patient informed of any privacy concerns related to visit: Yes Minutes spent on Phone/Video with Pt.: 20 Assessment and Plan Assessment & Plan (1) Asthma exacerbation: Code(s): J45.901 - Unspecified asthma with (acute) exacerbation Qualifiers: Asthma severity: moderate Asthma persistence: unspecified Qualified Code(s): J45.901 - Unspecified asthma with (acute) exacerbation Plan: Amoxicillin and prednisone given. Patient is strongly advised to stop smoking. Continue with the inhaler controller and to rinse mouth after using it (2) Tobacco abuse: Comment: 1/2 pack a day 06/2023 Code(s): Z72.0 - Tobacco use Plan: Patient is strongly advised to stop smoking! Medications: New amoxicillin 500 mg PO TID 21 tabs 0RF J45.901 - Unspecified asthma with (acute) exacerbation prednisone 4 tabs QD x 2 days then 3 tabs QD x 2 days then 2 tabs Qd x 2 days then 1 tab QD x 2 days PO daily; 20 tabs 0RF J45.901 - Unspecified asthma with (acute) exacerbation, J45.909 - Unspecified asthma, uncomplicated Discontinued azithromycin start on day 2 of therapy Discontinued Reason: Patient Completed Course 250 mg PO DAILY 4 tabs 0RF 4 days prednisone Discontinued Reason: Patient Completed Course 40 mg (2 x 20 mg) PO DAILY 8 tabs 0RF 4 days Coding Level of Care Code Tele Est Pt Level 3 (03702) Diagnoses Moderate asthma with exacerbation, unspecified whether persistent J45.901 Asthma severity: moderate Asthma persistence: unspecified Tobacco abuse Z72.0
[2023-11-18 15:22] VITALS: BMI 33.7
== END 2023-11-18 16:58 | disposition home or self-care (01) ==
LOC: HO.HMGH 15:29
PROVIDERS: PCP Internal Medicine; Visit Provider Internal Medicine
DX: J45.901 Unspecified asthma with (acute) exacerbation (principal); Z87.891 Personal history of nicotine dependence
CPT/HCPCS: 99442

== ENCOUNTER 2024-01-25 14:04 | Outpatient (REF) | payer MEDICARE, MEDICAID, SELFPAY ==
[2024-01-25 14:45] LABS: MANUAL DIFF FLAG NO
[2024-01-25 14:54] LABS: Basophils Percent Auto 0.5 % (0-2); Eosinophils Absolute Auto 0.4 X10*3/uL (0.0-0.4); Eosinophils Percent Auto 4.6 % (0-4); Hematocrit 35.7 % (37.0-47.0); Hemoglobin 12.3 g/dl (12.0-16.0); Imm Gran Abs Auto 0.03 X10*3/uL (0.00-0.03); Imm Gran Pct Auto 0.3 % (0.0-0.4); Lymphocytes Absolute Auto 2.4 X10*3/uL (1.2-4.9); Lymphocytes Percent Auto 27.8 % (20-40); Mean Corpuscular HGB Conc 34.5 g/dl (31.0-35.0); Mean Corpuscular Hemoglobin 29.2 pg (27.0-33.0); Mean Corpuscular Volume 84.8 fL (80.0-98.0); Mean Platelet Volume 8.6 fL (9.4-12.3); Monocytes Absolute Auto 0.5 X10*3/uL (0.1-1.2); Monocytes Percent Auto 5.8 % (2-11); Neutrophils Absolute Auto 5.3 x10*3/uL (2.0-8.3); Platelet Count 367 X10*3/uL (160-400); Red Blood Count 4.21 X10*6/uL (4.20-5.50); Red Cell Distribution Width 13.4 % (11.0-16.0); White Blood Count 8.7 X10*3/uL (4.8-10.8)
[2024-01-25 15:33] LABS: Alanine Aminotransferase 11 U/L (0-31); Albumin Level 4.1 g/dL (3.5-5.0); Alkaline Phosphatase 100 U/L (39-117); Anion Gap 12 (12-20); Aspartate Amino Transferase 13 U/L (5-31); Bilirubin Total 0.1 mg/dL (0.0-1.0); Blood Urea Nitrogen 6 mg/dL (9-16); Calcium 8.8 mg/dL (8.4-10.2); Carbon Dioxide 22 mmol/L (22-29); Chloride 101 mmol/L (96-108); Estimated Glomerular Filt Rate > 60; Glucose Random 87 mg/dL (60-115); Potassium 4.3 mmol/L (3.3-5.1); Sodium 131 mmol/L (135-145); Total Protein 7.2 g/dL (6.5-8.0)
[2024-01-25 15:52] LABS: Carbamazepine Tegretol 8.4 mcg/mL (5.0-12.0)
[2024-01-25 15:53] LABS: Free T4 (Free Thyroxine) 1.13 ng/dL (0.71-1.85); Thyroid Stimulating Hormone 0.78 uIU/mL (0.32-4.0)
[2024-01-26 08:53] LABS: HBS Num1 0.21 mIU/mL (0-7.99); HBc Num1 0.09 S/CO (0.00-0.79); HBsAGNum1 0.35 S/CO (0.00-0.99); Hepatitis B Core Antibody Nonreactive (Nonreactive); Hepatitis B Surface Antigen Negative (Negative); ~HepC Num1 0.11 S/CO (0.00-0.79); ~Hepatitis B Surface Antibody NONREACTIVE (Nonreactive); ~Hepatitis C Antibody Nonreactive (Nonreactive)
[2024-01-26 18:19] LABS: Rubella IgG Antibody 3.72 Index
[2024-01-26 21:33] LABS: Rubeola IgG (Measles) >300.00 AU/mL
[2024-01-27 22:23] LABS: TS Negative Control Passed; TS Panel A 2; TS Panel B 0; TS Positive Control Passed; TSpotTB Negative (Negative)
== END 2024-01-25 14:05 | disposition home or self-care (01) ==
LOC: HO.LAB 14:04
PROVIDERS: PCP Internal Medicine; Visit Provider Internal Medicine
DX: Z00.00 Encounter for general adult medical examination without abnormal findings (principal); R79.89 Other specified abnormal findings of blood chemistry; G40.209 Localization-related (focal) (partial) symptomatic epilepsy and epileptic syndromes with complex partial seizures, not intractable, without status epilepticus; B35.1 Tinea unguium
CPT/HCPCS: 36415; 80053; 80156; 80184; 84439; 84443; 85025; 86481; 86704; 86706; 86735; 86762; 86765; 86787; 86803; 87340

== ENCOUNTER 2024-01-27 09:33 | Outpatient (AMB) | payer MEDICARE, MEDICAID, SELFPAY ==
--- NOTE | 2024-01-27 09:34 | A.OFFPC_ITS ---
Intake Visit Reasons: Cold Sore Allergies vancomycin [VANCOMYCIN] Allergy (Severe, Verified 01/27/24 09:35) ANAPHYLAXIS nitrofurantoin [From Macrobid] Allergy (Intermediate, Verified 01/27/24 09:35) Rash fluconazole [Diflucan] Allergy (Unknown, Verified 01/27/24 09:35) anaphylaxis pantoprazole [Protonix] Allergy (Unknown, Verified 01/27/24 09:35) anaphylaxis phenytoin [Dilantin] Allergy (Unknown, Verified 01/27/24 09:35) hives Tobacco use date assessed: 01/27/24 HPI Cold Sore HPI Details 48-year-old obese female smoker with ast hma coming in for an acute problem. Patient developed in the last 3 days source on the lip prompting for consultation. Asks about the titers that she has had and also wanted a letter for her history of seizures on phenobarbital. She is going for a new work and she knows that they will be questioning about the phenobarbital in the urine. [facility] Medical History (Updated 01/27/24 @ 10:42 by Myranda Benitez MD) Asthma exacerbation Obesity (BMI 30.0-34.9) PUD (peptic ulcer disease) PAO II (cervical intraepithelial neoplasia II) HPV in female Amenorrhea Head trauma Tobacco abuse Vitamin D deficiency Anxiety GERD (gastroesophageal reflux disease) Asthma Complex partial seizure Surgical History History of removal of ovarian cyst History of tubal ligation Cavernous hemangioma of brain Family History Father Parkinson disease Stroke CVD (cardiovascular disease) TIA (transient ischemic attack) Mother Non Hodgkin's lymphoma Hypertension Paternal Aunt Ovarian cancer Paternal Uncle Pancreatic cancer Social History Housing: House Alcohol intake: never Patient Tobacco Use Status: Former Tobacco user Tobacco use type: Cigarette Cigarette Packs Per Day: 0.3 Cigarettes Per Day: 10 e-Cigarette/Vaping Use: Never Used Second Hand Smoke Exposure: No Advance Directives Date on File: 08/23/21 Current occupational status: employed Cognitive needs: No Hearing needs: No Vision needs: Yes Female Reproductive History Menstrual Age of Menarche: 14 Questionnaire Thrive Questionnaire Date Thrive assessed: 11/18/23 AUDIT C Alcohol Use Questionnaire (AUDIT-C) 1. How often do you have a drink containing alcohol?: Never 3. How often do you have six or more drinks on one occasion?: Never Total Score: 0 Score Reviewed/Action Taken: No MANUEL-7 AMB Questionnaire MANUEL-7 Date MANUEL - 7 assessed: 11/18/23 Source: Developed by Drs. Pk Escamilla, Vickie Irene, Sea Sosa and colleagues, with an educational sal from [employer]. Physical exam (Primary Care) Tobacco/Smoking Status: Tobacco use Status Tobacco use date assessed 01/27/24 01/27/24 09:37 Patient Tobacco Use Status Former Tobacco user 01/27/24 09:37 Tobacco use type Cigarette 01/27/24 09:37 e-Cigarette/Vaping Use Never Used 01/27/24 09:37 Thrive Assessment: Date of Thrive Assessment Date Thrive assessed 11/18/23 01/27/24 09:37 Telehealth Telehealth Location of provider rendering services: practice address Location of patient: address on file Patient Identification confirmed using: Name, : Yes Telehealth method: video (iphone ) Patient verbally consented to treatment: Yes Patient verbally consented to billing insurance company: Yes Patient informed of any privacy concerns related to visit: Yes Minutes spent on Phone/Video with Pt.: 25 Assessment and Plan Assessment & Plan (1) Herpes zoster infection of oral mucosa: Code(s): B02.8 - Zoster with other complications Plan: valacyclovir script sent (2) Obesity (BMI 30-39.9): Code(s): E66.9 - Obesity, unspecified Plan: Discussed about getting on a routine with exercise and eating healthy and unfortunately no shortcuts. (3) Complex partial seizure: Comment: With cavernous hemangioma resection. Dr. Tran, Dr. 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 (4) Tobacco abuse: Comment: 1/2 pack a day 06/2023 Code(s): Z72.0 - Tobacco use Plan: Patient is strongly advised to stop smoking! Medications: New valacyclovir 500 mg PO BID 3 days 6 tabs 2RF B02.8 - Zoster with other complications Coding Level of Care Code Est Pt Level 4 (79177) Diagnoses Herpes zoster infection of oral mucosa B02.8 Obesity (BMI 30-39.9) E66.9 Complex partial seizure G40.209 Tobacco abuse Z72.0
== END 2024-01-27 10:51 | disposition home or self-care (01) ==
LOC: HO.HMGH 09:33
PROVIDERS: PCP Internal Medicine; Visit Provider Internal Medicine
DX: G40.209 Localization-related (focal) (partial) symptomatic epilepsy and epileptic syndromes with complex partial seizures, not intractable, without status epilepticus (principal); B02.8 Zoster with other complications; E66.9 Obesity, unspecified; Z72.0 Tobacco use
CPT/HCPCS: 99214

== ENCOUNTER 2024-02-03 13:47 | Outpatient (AMB) | payer MEDICARE, MEDICAID, SELFPAY ==
[2024-02-03 13:52] VITALS: BP 110/80; PULSE 95; TEMP 36.3; O2SAT 96; BMI 45.7
--- NOTE | 2024-02-03 13:52 | MHC.OFFWIV ---
Intake Vital Signs 02/03/24 13:52 Height 5 ft 1 in Weight 242 lb BMI 45.7 BP 110/80 Blood Pressure Location Lt brachial Position Sitting Pulse 95 Pulse Source Pulse Oximeter Temp 97.4 F Temp Source Temporal Artery Scan Pulse Oximetry (%) 96 Oxygen Delivery Method Room Air Intake Visit Reasons: EP lower back pain/feels stuck in on position Intake Note: pt is here today for lower back pain started yesterday Patient Tobacco Use Status: Former Tobacco user Allergies vancomycin [VANCOMYCIN] Allergy (Severe, Verified 02/03/24 14:05) ANAPHYLAXIS nitrofurantoin [From Macrobid] Allergy (Intermediate, Verified 02/03/24 14:05) Rash fluconazole [Diflucan] Allergy (Unknown, Verified 02/03/24 14:05) anaphylaxis pantoprazole [Protonix] Allergy (Unknown, Verified 02/03/24 14:05) anaphylaxis phenytoin [Dilantin] Allergy (Unknown, Verified 02/03/24 14:05) hives Do you need a note to return to daycare/school/sports/work: Yes HPI HPI Comments History of Present Illness Details Patient is a 48yo F who presents with son for back pain R lower back in nature She stands for work all day When sitting when she finished her shift and turned slightly and felt pain in R lower back No radiation + similar pain in past Denies urine or bowel incontinence, urine symptoms or abdominal pain No hx of kidney stones No CP or SOB Pain 7/10 and worse with movement Tried warm compress, ibuprofen, icy/hot all without resolution Starts new job on Thursday [employer] Medical History (Updated 02/03/24 @ 14:34 by Oneyda Rayo PA-C) Asthma exacerbation Obesity (BMI 30.0-34.9) PUD (peptic ulcer disease) PAO II (cervical intraepithelial neoplasia II) HPV in female Amenorrhea Head trauma Tobacco abuse Vitamin D deficiency Anxiety GERD (gastroesophageal reflux disease) Asthma Complex partial seizure Surgical History History of removal of ovarian cyst History of tubal ligation Cavernous hemangioma of brain Family History Father Parkinson disease Stroke CVD (cardiovascular disease) TIA (transient ischemic attack) Mother Non Hodgkin's lymphoma Hypertension Paternal Aunt Ovarian cancer Paternal Uncle Pancreatic cancer Social History Housing: House Alcohol intake: never Patient Tobacco Use Status: Former Tobacco user Tobacco use type: Cigarette Cigarette Packs Per Day: 0.3 Cigarettes Per Day: 10 e-Cigarette/Vaping Use: Never Used Second Hand Smoke Exposure: No Advance Directives Date on File: 08/23/21 Current occupational status: employed Cognitive needs: No Hearing needs: No Vision needs: Yes Female Reproductive History Menstrual Age of Menarche: 14 Review of Systems Const Denies chills and Denies fever(s) Card Denies chest pain and Denies dyspnea Resp Denies cough and Denies dyspnea GI Denies abdominal pain, Denies diarrhea, Denies nausea and Denies vomiting Denies hematuria, Denies urinary incontinence, Denies urinary hesitancy and Denies urinary urgency Musc Reports back pain, Reports stiffness and Denies tingling Skin/Breast Denies rash Neuro Denies tingling Physical Exam Vital Signs: Last Vital Signs Temp 97.4 F 02/03/24 13:52 Pulse 95 02/03/24 13:52 BP 110/80 02/03/24 13:52 Pulse Ox 96 02/03/24 13:52 Oxygen Delivery Method Room Air 02/03/24 13:52 BMI result Body Mass Index 45.7 General: Non-toxic, NAD. Speaking full sentences. Skin: Warm dry throughout. No posterior back or flank ecchymosis or vesicular lesions Eye: EOMI Respiratory: CTA bilaterally. No wheezes, rales or rhonchi Cardiac: RRR. No murmur MSK: No midline spinal tenderness. Negative bilateral SLR. + tenderness to palpation R lumbar paravertebral muscles. Gait stable. Neurology: A/O. No aphasia or facial droop. Gait without abnormality Psych: Good mood and affect Results AMB Urinalysis, Automated UA Leukoctes 0 Jv/uL Last Edit by Oneyda Villagran MA on 02/03/24 14:23 UA Nitrite Negative Last Edit by Oneyda Villagran MA on 02/03/24 14:23 UA Urobilinogen 0.2 mg/dL Last Edit by Oneyda Villagran MA on 02/03/24 14:23 UA Protein 15 mg/dL Last Edit by Oneyda Villagran MA on 02/03/24 14:23 UA pH 6.5 Last Edit by Oneyda Villagran MA on 02/03/24 14:23 UA Blood 0 Smith/uL Last Edit by Oneyda Villagran MA on 02/03/24 14:23 UA Specific [place] 1.015 Last Edit by Oneyda Villagran MA on 02/03/24 14:23 UA Ketone Positive Last Edit by Oneyda Villagran MA on 02/03/24 14:23 UA Bilirubin 4 mg/dL Last Edit by Oneyda Villagran MA on 02/03/24 14:23 UA Glucose 0 mg/dL Last Edit by Oneyda Villagran MA on 02/03/24 14:23 Results Reviewed Results Reviewed: Laboratory Last Values Urine pH (Auto) 6.5 02/03/24 14:23 Specific [place] (Auto) 1.015 02/03/24 14:23 Urine Protein (Auto) 15 mg/dL 02/03/24 14:23 Glucose (UA)(Auto) 0 mg/dL 02/03/24 14:23 Urine Ketones (Auto) Positive 02/03/24 14:23 Urine Blood (Auto) 0 Smith/uL 02/03/24 14:23 Urine Nitrite (Auto) Negative 02/03/24 14:23 Urine Bilirubin (Auto) 4 mg/dL 02/03/24 14:23 Urine Urobilinogen (Auto) 0.2 mg/dL 02/03/24 14:23 Leukocyte Esterase (Auto) 0 Jv/uL 02/03/24 14:23 Assessment & Plan Assessment & Plan (1) Lumbar back pain: Code(s): M54.50 - Low back pain, unspecified Plan: Patient seen and evaluated. No midline spinal tenderness Warm compress/tylenol/motrin Robaxin (lethargy, no alcohol or driving. Only take PRN) Discussed [place] when she goes back to work and not to take muscle relaxant with work Patient gave verbal understanding and had no additional questions or concerns at time of discharge All questions answered Orders: Orders AMB Urinalysis Automated Today Z13.9 - Encounter for screening, unspecified Medications: New methocarbamol 750 mg PO TID PRN 14 tabs 0RF back pain Coding Level of Care Code Est Pt Level 3 (49203) Diagnoses Lumbar back pain M54.50
== END 2024-02-03 15:10 | disposition home or self-care (01) ==
PROVIDERS: PCP Internal Medicine; Visit Provider Physician Assistant
DX: Z13.9 Encounter for screening, unspecified (principal); M54.50 Low back pain, unspecified
CPT/HCPCS: 81003; 99213

== ENCOUNTER 2024-03-16 09:24 | Outpatient (AMB) | payer MEDICARE, MEDICAID, SELFPAY ==
[2024-03-16 09:28] VITALS: BP 116/70; PULSE 90; TEMP 36.2; O2SAT 95; BMI 44.4
--- NOTE | 2024-03-16 09:28 | AM.OFFWIN_ITS ---
Intake Vital Signs 03/16/24 09:28 Height 5 ft 1 in Weight 235 lb BMI 44.4 BP 116/70 Blood Pressure Location Lt brachial Position Sitting Pulse 90 Pulse Source Pulse Oximeter Temp 97.2 F Temp Source Temporal Artery Scan Pulse Oximetry (%) 95 Oxygen Delivery Method Room Air Intake Visit Reasons: EP lower back pain Intake Note: pt is here today for lower back pain started yesterday Patient Tobacco Use Status: Former Tobacco user Allergies vancomycin [VANCOMYCIN] Allergy (Severe, Verified 03/16/24 09:36) ANAPHYLAXIS nitrofurantoin [From Macrobid] Allergy (Intermediate, Verified 03/16/24 09:36) Rash fluconazole [Diflucan] Allergy (Unknown, Verified 03/16/24 09:36) anaphylaxis pantoprazole [Protonix] Allergy (Unknown, Verified 03/16/24 09:36) anaphylaxis phenytoin [Dilantin] Allergy (Unknown, Verified 03/16/24 09:36) hives Do you need a note to return to daycare/school/sports/work: Yes HPI HPI Comments History of Present Illness Details 48 y/o female patient who presents to [place] with c/o lower back pain since yesterday. This is a chronic issue. [facility] Medical History (Updated 02/03/24 @ 14:34 by Oneyda Rayo PA-C) Asthma exacerbation Obesity (BMI 30.0-34.9) PUD (peptic ulcer disease) PAO II (cervical intraepithelial neoplasia II) HPV in female Amenorrhea Head trauma Tobacco abuse Vitamin D deficiency Anxiety GERD (gastroesophageal reflux disease) Asthma Complex partial seizure Surgical History History of removal of ovarian cyst History of tubal ligation Cavernous hemangioma of brain Family History Father Parkinson disease Stroke CVD (cardiovascular disease) TIA (transient ischemic attack) Mother Non Hodgkin's lymphoma Hypertension Paternal Aunt Ovarian cancer Paternal Uncle Pancreatic cancer Social History Housing: House Alcohol intake: never Patient Tobacco Use Status: Former Tobacco user Tobacco use type: Cigarette Cigarette Packs Per Day: 0.3 Cigarettes Per Day: 10 e-Cigarette/Vaping Use: Never Used Second Hand Smoke Exposure: No Advance Directives Date on File: 08/23/21 Current occupational status: employed Cognitive needs: No Hearing needs: No Vision needs: Yes Female Reproductive History Menstrual Age of Menarche: 14 Review of Systems Const All systems reviewed & are unremarkable except as noted in HPI and below Physical Exam Vital Signs: Last Vital Signs Temp 97.2 F 03/16/24 09:28 Pulse 90 03/16/24 09:28 BP 116/70 03/16/24 09:28 Pulse Ox 95 03/16/24 09:28 Oxygen Delivery Method Room Air 03/16/24 09:28 BMI result Body Mass Index 44.4 Const General: no acute distress; No comfortable Nutritional Appearance: overweight Orientation/consciousness: patient oriented x3 Back/Spine/Pelvis Thoracic/Lumbar Spine: thoraco-lumbar ROM limited, thoracic spinal tenderness at T12 and lumbar spinal tenderness at L4 and at L5 Neuro General: patient oriented x3, gait normal and moves all extremities Psych Speech and movement: Normal speech and movement present Assessment & Plan Assessment & Plan (1) Lumbar back pain: Code(s): M54.50 - Low back pain, unspecified Plan: - Acetaminophen for pain relief - IceHot - Ref for PT - Recomm pain management. Orders: Orders PT Evaluation and Treatment Today M54.50 - Low back pain, unspecified Medications: Refilled methocarbamol 750 mg PO TID PRN 14 tabs 0RF back pain M54.50 - Low back pain, unspecified Coding Level of Care Code Est Pt Level 3 (15833) Diagnoses Lumbar back pain M54.50 Time Spent (min) 15
== END 2024-03-16 09:57 | disposition home or self-care (01) ==
PROVIDERS: PCP Internal Medicine; Visit Provider Nurse Practitioner Family
DX: M54.50 Low back pain, unspecified (principal)
CPT/HCPCS: 99213

== ENCOUNTER 2024-03-25 12:54 | Outpatient (AMB) | payer MEDICARE, MEDICAID, SELFPAY ==
[2024-03-25 12:55] VITALS: BP 110/78; PULSE 112; O2SAT 98; BMI 32.1
--- NOTE | 2024-03-25 12:55 | A.OFFPC_ITS ---
Vital Signs 03/25/24 12:55 Height 5 ft 11 in Weight 230 lb BMI 32.1 BP 110/78 Blood Pressure Location Lt brachial Position Sitting Pulse 112 H Pulse Source Pulse Oximeter Pulse Oximetry (%) 98 Oxygen Delivery Method Room Air Intake Visit Reasons: Pain Management Referral Household Assistant Required: No Allergies vancomycin [VANCOMYCIN] Allergy (Severe, Verified 03/25/24 12:55) ANAPHYLAXIS nitrofurantoin [From Macrobid] Allergy (Intermediate, Verified 03/25/24 12:55) Rash fluconazole [Diflucan] Allergy (Unknown, Verified 03/25/24 12:55) anaphylaxis pantoprazole [Protonix] Allergy (Unknown, Verified 03/25/24 12:55) anaphylaxis phenytoin [Dilantin] Allergy (Unknown, Verified 03/25/24 12:55) hives Tobacco use date assessed: 03/25/24 Dental Screening Dental Screen Date: 11/18/23 HPI Pain Management Referral HPI Details 48-year-old obese female smoker with a h istory of seizures complex partial, asthma, GERD, generalized anxiety disorder coming in for follow-up. Patient also complains of low back pain. Review of the notes has been [facility] for [facility] pain and advised physical therapy. Muscle relaxants prescribed. Works in [employer] while sitting noted pain on the lower back - stopped work for 1 week then better [facility] Medical History (Updated 02/03/24 @ 14:34 by Oneyda Rayo PA-C) Asthma exacerbation Obesity (BMI 30.0-34.9) PUD (peptic ulcer disease) PAO II (cervical intraepithelial neoplasia II) HPV in female Amenorrhea Head trauma Tobacco abuse Vitamin D deficiency Anxiety GERD (gastroesophageal reflux disease) Asthma Complex partial seizure Surgical History History of removal of ovarian cyst History of tubal ligation Cavernous hemangioma of brain Family History Father Parkinson disease Stroke CVD (cardiovascular disease) TIA (transient ischemic attack) Mother Non Hodgkin's lymphoma Hypertension Paternal Aunt Ovarian cancer Paternal Uncle Pancreatic cancer Social History Housing: House Alcohol intake: never Patient Tobacco Use Status: Former Tobacco user Tobacco use type: Cigarette Cigarette Packs Per Day: 0.3 Cigarettes Per Day: 10 e-Cigarette/Vaping Use: Never Used Second Hand Smoke Exposure: No Advance Directives Date on File: 08/23/21 Current occupational status: employed Cognitive needs: No Hearing needs: No Vision needs: Yes Female Reproductive History Menstrual Age of Menarche: 14 Questionnaire Thrive Questionnaire Date Thrive assessed: 11/18/23 AUDIT C Alcohol Use Questionnaire (AUDIT-C) 1. How often do you have a drink containing alcohol?: Never 3. How often do you have six or more drinks on one occasion?: Never Total Score: 0 Score Reviewed/Action Taken: No MANUEL-7 AMB Questionnaire MANUEL-7 Date MANUEL - 7 assessed: 11/18/23 Source: Developed by Drs. Pk Escamilla, Vickie Irene, Sea Sosa and colleagues, with an educational sal from [employer]. Physical exam (Primary Care) Vital Signs: Last Vital Signs Pulse 112 H 03/25/24 12:55 BP 110/78 03/25/24 12:55 Pulse Ox 98 03/25/24 12:55 Oxygen Delivery Method Room Air 03/25/24 12:55 BMI result Body Mass Index 32.1 Tobacco/Smoking Status: Tobacco use Status Tobacco use date assessed 03/25/24 03/25/24 12:56 Patient Tobacco Use Status Former Tobacco user 03/25/24 12:56 Tobacco use type Cigarette 03/25/24 12:56 e-Cigarette/Vaping Use Never Used 03/25/24 12:56 Thrive Assessment: Date of Thrive Assessment Date Thrive assessed 11/18/23 03/25/24 12:56 Const General: alert; No acute distress Eyes Conjunctivae: conjunctivae normal Resp Auscultation: clear to auscultation bilaterally Cardio Rate: regular rate Rhythm: regular rhythm GI Inspection: Yes normal to inspection Back/Spine/Pelvis Other: tedner on the lumbar area R paravertrbral area Extrem General: Yes normal to inspection and No edema Assessment and Plan Assessment & Plan (1) Lumbar back pain: Code(s): M54.50 - Low back pain, unspecified Plan: heat , physical therapy, exercise (2) Obesity (BMI 30-39.9): Code(s): E66.9 - Obesity, unspecified Plan: diet and exercise (3) Colon cancer screening: Code(s): Z12.11 - Encounter for screening for malignant neoplasm of colon Plan: reminded about colontest (4) Complex partial seizure: Comment: With cavernous hemangioma resection. Dr. Tran, Dr. 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 1982 Code(s): G40.209 - Localization-related (focal) (partial) symptomatic epilepsy and epileptic syndromes with complex partial seizures, not intractable, without status epilepticus Plan: Continue with present medication (5) Asthma: Code(s): J45.909 - Unspecified asthma, uncomplicated Plan: Patient is strongly advised to stop smoking! (6) Tobacco abuse: Comment: 1/2 pack a day 06/2023 Code(s): Z72.0 - Tobacco use Plan: stop smoking !!!! Orders: Orders XR lumbar spine 2-3V Today M54.50 - Low back pain, unspecified PT Evaluation and Treatment Today M54.50 - Low back pain, unspecified Referrals Nutrition/Dietitian Referral E66.9 - Obesity, unspecified Coding Level of Care Code Est Pt Level 4 (85712) Diagnoses Lumbar back pain M54.50 Obesity (BMI 30-39.9) E66.9 Colon cancer screening Z12.11 Complex partial seizure G40.209 Asthma J45.909 Tobacco abuse Z72.0
== END 2024-03-25 13:23 | disposition home or self-care (01) ==
LOC: HO.HMGH 12:54
PROVIDERS: PCP Internal Medicine; Visit Provider Internal Medicine
DX: M54.50 Low back pain, unspecified (principal); E66.9 Obesity, unspecified; G40.209 Localization-related (focal) (partial) symptomatic epilepsy and epileptic syndromes with complex partial seizures, not intractable, without status epilepticus; Z68.32 Body mass index [BMI] 32.0-32.9, adult; Z12.11 Encounter for screening for malignant neoplasm of colon; J45.909 Unspecified asthma, uncomplicated; Z72.0 Tobacco use
CPT/HCPCS: 99214

== ENCOUNTER 2024-09-08 08:23 | Outpatient (AMB) | payer MEDICARE, SELFPAY ==
--- NOTE | 2024-09-08 08:34 | MHC.PC.OV ---
Vital Signs 09/08/24 08:35 Height 5 ft 11 in Weight 222 lb 4 oz BMI 31.0 BP 120/82 Blood Pressure Location Lt brachial Position Sitting Pulse 78 Pulse Source Pulse Oximeter Pulse Oximetry (%) 100 Oxygen Delivery Method Room Air Intake Visit Reasons: Asthma, Smoker Intake Note: Patient is here to follow up on Asthma, Smoker. Retirement Specialist Required: No Process Manufacturing Engineer: Not Required per policy Accompanied by: Self / Same As Patient Allergies vancomycin [VANCOMYCIN] Allergy (Severe, Verified 09/08/24 08:34) ANAPHYLAXIS nitrofurantoin [From Macrobid] Allergy (Intermediate, Verified 09/08/24 08:34) Rash fluconazole [Diflucan] Allergy (Unknown, Verified 09/08/24 08:34) anaphylaxis pantoprazole [Protonix] Allergy (Unknown, Verified 09/08/24 08:34) anaphylaxis phenytoin [Dilantin] Allergy (Unknown, Verified 09/08/24 08:34) hives Tobacco use date assessed: 09/08/24 Dental Screening Dental Screen Date: 11/18/23 HPI Asthma, Smoker HPI Details 49-year-old obese female smoker with asthma seizures coming in for follow-up. Last seen in 03/28/2024 patient was having low back pain and was sent for physical therapy. Patient's mammogram is due and colonoscopy is due.Seizure has been controlled and asking for referral to neurology [facility]. refill asking for brand name. smoking 1/2 pack a day. on proair, on monteleukast and advair reminded about colonoscopy and mammogram. [facility] Medical History (Updated 09/08/24 @ 08:38 by Myranda Benitez MD) Asthma exacerbation Obesity (BMI 30.0-34.9) PUD (peptic ulcer disease) PAO II (cervical intraepithelial neoplasia II) HPV in female Amenorrhea Head trauma Tobacco abuse Vitamin D deficiency Anxiety GERD (gastroesophageal reflux disease) Asthma Complex partial seizure Surgical History History of removal of ovarian cyst History of tubal ligation Cavernous hemangioma of brain Family History Father Parkinson disease Stroke CVD (cardiovascular disease) TIA (transient ischemic attack) Mother Non Hodgkin's lymphoma Hypertension Paternal Aunt Ovarian cancer Paternal Uncle Pancreatic cancer Social History Housing: House Alcohol intake: never Patient Tobacco Use Status: Former Tobacco user Tobacco use type: Cigarette Cigarette Packs Per Day: 0.3 Cigarettes Per Day: 10 e-Cigarette/Vaping Use: Never Used Second Hand Smoke Exposure: No Advance Directives Date on File: 08/23/21 Current occupational status: employed Cognitive needs: No Hearing needs: No Vision needs: Yes Female Reproductive History Menstrual Age of Menarche: 14 Questionnaire Thrive Questionnaire Date Thrive assessed: 11/18/23 AUDIT C Alcohol Use Questionnaire (AUDIT-C) 3. How often do you have six or more drinks on one occasion?: Never Total Score: 0 MANUEL-7 AMB Questionnaire MANUEL-7 Date MANUEL - 7 assessed: 11/18/23 Source: Developed by Drs. Pk Escamilla, Vickie Irene, Sea Sosa and colleagues, with an educational sal from [employer]. Physical exam (Primary Care) Tobacco/Smoking Status: Tobacco use Status Tobacco use date assessed 03/25/24 03/25/24 12:56 Patient Tobacco Use Status Former Tobacco user 03/25/24 12:56 Tobacco use type Cigarette 03/25/24 12:56 e-Cigarette/Vaping Use Never Used 03/25/24 12:56 Thrive Assessment: Date of Thrive Assessment Date Thrive assessed 11/18/23 03/25/24 12:56 Const General: alert; No acute distress Eyes Conjunctivae: conjunctivae normal Resp Auscultation: clear to auscultation bilaterally Cardio Rate: regular rate Rhythm: regular rhythm GI Inspection: Yes normal to inspection Extrem General: Yes normal to inspection and No edema Coding Level of Care Code Est Pt Level 4 (53431) Complex EM visit Add On G2211 Diagnoses Obesity (BMI 30-39.9) E66.9 Tobacco abuse Z72.0 Complex partial seizure G40.209 Mild intermittent asthma without complication J45.20 Asthma severity: mild Asthma persistence: intermittent Asthma complication type: uncomplicated Gastroesophageal reflux disease without esophagitis K21.9 Esophagitis presence: without esophagitis Generalized anxiety disorder F41.1 Breast cancer screening by mammogram Z12.31 Colon cancer screening Z12.11 Assessment & Plan Assessment & Plan (1) Obesity (BMI 30-39.9): Code(s): E66.9 - Obesity, unspecified Category: Medical Plan: Diet and exercise (2) Tobacco abuse: Comment: 1/2 pack a day 06/2023 Code(s): Z72.0 - Tobacco use Category: Medical Plan: Patient is strongly advised to stop smoking! (3) Complex partial seizure: Comment: With cavernous hemangioma resection. Dr. Tran, Dr. 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 1982 Code(s): G40.209 - Localization-related (focal) (partial) symptomatic epilepsy and epileptic syndromes with complex partial seizures, not intractable, without status epilepticus Category: Medical Plan: Patient is on Keppra 1500 mg twice a day, phenobarbital and carbamazepine (4) Asthma: Code(s): J45.909 - Unspecified asthma, uncomplicated Category: Medical Qualifiers: Asthma severity: mild Asthma persistence: intermittent Asthma complication type: uncomplicated Qualified Code(s): J45.20 - Mild intermittent asthma, uncomplicated Plan: Patient is advised to stop smoking! On albuterol inhaler as needed. And montelukast 10 mg once a day (5) GERD (gastroesophageal reflux disease): Code(s): K21.9 - Gastro-esophageal reflux disease without esophagitis Category: Medical Qualifiers: Esophagitis presence: without esophagitis Qualified Code(s): K21.9 - Gastro-esophageal reflux disease without esophagitis Plan: Patient is advised to stop smoking! Avoid the foods that causes that usually spicy foods, tomato products, juices, coffee, soda and foods that your sensitive to. After eating do not lie down, allow 3-4 hours before in lie down. And keep the head of bed above 30 degrees to avoid the acid from going up. On Prevacid 30 mg once a day (6) Generalized anxiety disorder: Comment: Adjustment disorder with mixed anxiety and depressed mood July 2020 Code(s): F41.1 - Generalized anxiety disorder Category: Medical Plan: Patient is advised counseling and therapy (7) Breast cancer screening by mammogram: Code(s): Z12.31 - Encounter for screening mammogram for malignant neoplasm of breast Category: Medical Plan: Patient is reminded about mammogram (8) Colon cancer screening: Code(s): Z12.11 - Encounter for screening for malignant neoplasm of colon Category: Medical Plan: Patient is reminded about colonoscopy Orders: Orders Lipid Panel Today E78.00 - Pure hypercholesterolemia, unspecified, G40.209 - Localization-related (focal) (partial) symptomatic epilepsy and epileptic syndromes with complex partial seizures, not intractable, without status epilepticus Free T4 (Free Thyroxine) Today G40.209 - Localization-related (focal) (partial) symptomatic epilepsy and epileptic syndromes with complex partial seizures, not intractable, without status epilepticus UA CC w/rflx Micro + Cult Today G40.209 - Localization-related (focal) (partial) symptomatic epilepsy and epileptic syndromes with complex partial seizures, not intractable, without status epilepticus, R30.0 - Dysuria Complete Blood Count Auto Diff Today G40.209 - Localization-related (focal) (partial) symptomatic epilepsy and epileptic syndromes with complex partial seizures, not intractable, without status epilepticus Thyroid Stimulating Hormone Today G40.209 - Localization-related (focal) (partial) symptomatic epilepsy and epileptic syndromes with complex partial seizures, not intractable, without status epilepticus Vitamin B12 and Folate Today G40.209 - Localization-related (focal) (partial) symptomatic epilepsy and epileptic syndromes with complex partial seizures, not intractable, without status epilepticus Vitamin D 25-OH Total Today G40.209 - Localization-related (focal) (partial) symptomatic epilepsy and epileptic syndromes with complex partial seizures, not intractable, without status epilepticus MM tomosynthesis screening BI Today Z12.31 - Encounter for screening mammogram for malignant neoplasm of breast Referrals Psychiatry Outpatient Consultation Service F41.1 - Generalized anxiety disorder Neurology Referral G40.209 - Localization-related (focal) (partial) symptomatic epilepsy and epileptic syndromes with complex partial seizures, not intractable, without status epilepticus Gastroenterology Referral Z12.11 - Encounter for screening for malignant neoplasm of colon Medications: Changed From levetiracetam 1,500 mg (3 x 500 mg) PO BID 90 days 540 tabs 0RF G40.209 - Localization-related (focal) (partial) symptomatic epilepsy and epileptic syndromes with complex partial seizures, not intractable, without status epilepticus To Keppra (levetiracetam) 1,500 mg (3 x 500 mg) PO BID 90 days 540 tabs 0RF NS G40.209 - Localization-related (focal) (partial) symptomatic epilepsy and epileptic syndromes with complex partial seizures, not intractable, without status epilepticus Refilled albuterol sulfate 90 mcg/actuation 2 puffs inhalation Q4-6H PRN 8.5 ea 0RF for wheezing J45.909 - Unspecified asthma, uncomplicated fluticasone propion-salmeterol 250-50 mcg/dose (Advair Diskus) 1 inh inhalation BID 60 ea 12RF J45.20 - Mild intermittent asthma, uncomplicated Discontinued ibuprofen Discontinued Reason: Doctor's Order 800 mg PO Q8H 7 days 21 tabs 0RF M54.50 - Low back pain, unspecified prednisone Discontinued Reason: Doctor's Order 20 mg PO DAILY 3 days 3 tabs 0RF prednisone take 3 tabs x2tabs, take 2 tabs 2 days , take 1 tabs x 2 days Discontinued Reason: Change Referral Type 10 mg PO DIRECTED 6 days 12 tabs 0RF M54.50 - Low back pain, unspecified
[2024-09-08 08:35] VITALS: BP 120/82; PULSE 78; O2SAT 100; BMI 31.0
== END 2024-09-08 08:58 | disposition home or self-care (01) ==
LOC: HO.HMCH 08:24
PROVIDERS: PCP Internal Medicine; Visit Provider Internal Medicine
DX: J45.20 Mild intermittent asthma, uncomplicated (principal); G40.209 Localization-related (focal) (partial) symptomatic epilepsy and epileptic syndromes with complex partial seizures, not intractable, without status epilepticus; E66.9 Obesity, unspecified; Z68.31 Body mass index [BMI] 31.0-31.9, adult; Z72.0 Tobacco use; K21.9 Gastro-esophageal reflux disease without esophagitis; F41.1 Generalized anxiety disorder; Z12.31 Encounter for screening mammogram for malignant neoplasm of breast; Z12.11 Encounter for screening for malignant neoplasm of colon

== ENCOUNTER → 2024-09-08 08:23 | Outpatient (BNVA) | payer MEDICARE, SELFPAY | PROVIDERS: PCP Internal Medicine; Visit Provider Internal Medicine | DX: E66.9 Obesity, unspecified (principal); G40.209 Localization-related (focal) (partial) symptomatic epilepsy and epileptic syndromes with complex partial seizures, not intractable, without status epilepticus; J45.20 Mild intermittent asthma, uncomplicated; K21.9 Gastro-esophageal reflux disease without esophagitis; F41.1 Generalized anxiety disorder; Z72.0 Tobacco use; Z71.6 Tobacco abuse counseling | CPT/HCPCS: 99212 ==

== ENCOUNTER 2024-12-23 14:35 | Outpatient (AMB) | payer MEDICARE, SELFPAY ==
--- OUTSIDE RECORDS SUMMARY | 2024-12-23 14:37 | XMS_ITS | Continuity of Care Document ---
Author Organization [facility]. If a dditional information is needed, contact Health Information Management at [phone] [place] [address] Phone Care Team Providers Care Steersman Name Role Phone Unavailable Unavailable Unavailable Unavailable Unavailable Problems Herpes simplex Onset:25-Jun-2015 Dominguez Mental Status Cognitive function finding 25-Jun-2015 Allergies and Adverse Reactions vancomycin(Allergy) Onset: 25-Jun-2015 Medications ferrous sulfate 325 MG Exten ded Release Oral Capsule;325 MILLIGRAM PO DAILY Start:25-Jun-2015 Comments:325 MG PO DAILY montelukast 10 MG Oral Table t [Singulair];10 MILLIGRAM PO DAILY Start:25-Jun-2015 Comments:10 MG PO DAILY ADVAIR 100/50 DISKUS;1 INH I NH BID Start:25-Jun-2015 Comments:1 INH INH BID levETIRAcetam 250 MG Oral Ta blet;1500 MILLIGRAM PO BID Start:25-Jun-2015 Comments:1500 MG PO BID CARBITROL Start:25-Jun-2015 fexofenadine hydrochloride 1 80 MG Oral Tablet;180 MILLIGRAM PO DAILY Start:25-Jun-2015 Comments:180 MG PO DAILY PHENobarbital 30 MG Oral Tab let;32.4 MILLIGRAM PO BID Start:25-Jun-2015 Comments:32.4 MG PO BID Social History Smoking Status Smokes tobacco daily Recorded: 25-Jun-2015
--- OUTSIDE RECORDS SUMMARY | 2024-12-23 14:37 | XMS_ITS | Clinical Summary ---
Author Organization [facility] ity Address [address] [place] [address] Care Team Providers Care Laser Beam Machine Operator Name Role Phone Unavailable Primary Care Provider Unavailabl e Social History Tobacco Use Types Packs/Day Years Used Date Smoking Tobacco: Never Assessed Comments Unknown Sex and Gender Information Value Date Recorded Sex Assigned at Not on file Legal Sex Female 1:35 PM EDT Gender Identity Not on file Sexual Orientation Not on file Plan of Treatment Health Maintenance Due Date Last Done Comments Breast Cancer Screening 1975 DTaP,Tdap,and Td Vaccines (1 - Tdap) 1994 Hepatitis B Vaccines (1 of 3 - 19+ 3-dose series) 1994 Cervical Cancer Screening: P ap Smear 1996 Colorectal Cancer Screening: Colonoscopy 06/01/2024 Depression Screening 06/01/2024 HIV Screening 06/01/2024 Hepatitis C Screening 06/01/2024 Social Influencers of Health Screening 06/01/2024 COVID-19 Vaccine ( - 2023-2 5 season) 2024 Influenza Vaccine (#1) 2024 HIB Vaccines Aged Out No longer eligi ble based on patient's age to complete this topic HPV Vaccines Aged Out No longer eligi ble based on patient's age to complete this topic Hepatitis A Vaccines Aged Out No long er eligible based on patient's age to complete this topic IPV Vaccines Aged Out No longer eligi ble based on patient's age to complete this topic MMR Vaccines Aged Out No longer eligi ble based on patient's age to complete this topic Meningococcal ACWY Vaccine Aged Out N o longer eligible based on patient's age to complete this topic Pneumococcal Vaccine: Pediat rics (0 to 5 Years) and At-Risk Patients (6 to 64 Years) Aged Out No longer eligible b ased on patient's age to complete this topic RSV Immunization Patients Un ross 20 months Aged Out No longer eligible b ased on patient's age to complete this topic Varicella Vaccines Aged Out No longer eligible based on patient's age to complete this topic
--- NOTE | 2024-12-23 15:37 | AM.OFFWIN_ITS ---
Intake Vital Signs 12/23/24 15:38 Weight 232 lb BP 122/78 Blood Pressure Location Rt brachial Position Sitting Pulse 80 Pulse Source Pulse Oximeter Temp 98.3 F Temp Source Oral Pulse Oximetry (%) 99 Oxygen Delivery Method Room Air Intake Visit Reasons: EP Productive cough, chest congestion Intake Note: Patient here for productive cough,dizzy and chest congestion that started a couple of days ago. Patient Tobacco Use Status: Former Tobacco user Allergies vancomycin [VANCOMYCIN] Allergy (Severe, Verified 12/23/24 15:39) ANAPHYLAXIS nitrofurantoin [From Macrobid] Allergy (Intermediate, Verified 12/23/24 15:39) Rash fluconazole [Diflucan] Allergy (Unknown, Verified 12/23/24 15:39) anaphylaxis pantoprazole [Protonix] Allergy (Unknown, Verified 12/23/24 15:39) anaphylaxis phenytoin [Dilantin] Allergy (Unknown, Verified 12/23/24 15:39) hives HPI HPI Comments History of Present Illness Details History - The patient is a 49-year-old female pr esenting with 10 days of worsening sharp, productive cough and shortness of breath during work activities. - Nighttime fevers are present, and the patient reports history of asthma and increased use of her asthma inhaler. - The patient is employed as a pharmacy cashier at [employer] and persistent exposure to respiratory infections, which could exacerbate her condition. - She has not received antibiotic treatm ent but has a history of using oral steroids for asthma. - Exposure to diagnosed cases of walking pneumonia includes her , who tested negative for common viral pathogens. Physical Exam General: Cooperative, healthy appearing, comfortable and no acute distress Orientation/consciousness: Patient oriented x3 Limitations: No limitations Head: Normal to inspection Ears: Hearing grossly normal bilaterally, external ears normal and TM's normal bilaterally Nose: Normal external nose present, Normal nares present and No nasal discharge present Face and sinus: Normal facial exam and Yes sinuses nontender Mouth: Normal oral and palatal mucosa present and moist mucous membranes Throat: Yes tonsils normal, Yes uvula midline. Posterior oropharynx erythema Eyes: Appearance normal, both eyes and all related structures Neck: Normal visual inspection Respiratory: Clear to auscultation bilaterally. Normal respiratory effort, able to speak in complete sentences, Actively coughing, no respiratory distress, not tachypneic, no tripod positioning and no use of accessory muscles Cardiovascular: Regular rate and rhythm. Normal S1 and S2 Skin: No rashes or lesions noted Neuro: Patient oriented x3 Extremities: Normal to inspection and Yes no clubbing, cyanosis or edema [facility] Medical History (Updated 12/23/24 @ 16:15 by Vashti Hernandez PA-C) Asthma exacerbation Obesity (BMI 30.0-34.9) PUD (peptic ulcer disease) PAO II (cervical intraepithelial neoplasia II) HPV in female Amenorrhea Head trauma Tobacco abuse Vitamin D deficiency Anxiety GERD (gastroesophageal reflux disease) Asthma Complex partial seizure Surgical History History of removal of ovarian cyst History of tubal ligation Cavernous hemangioma of brain Family History Father Parkinson disease Stroke CVD (cardiovascular disease) TIA (transient ischemic attack) Mother Non Hodgkin's lymphoma Hypertension Paternal Aunt Ovarian cancer Paternal Uncle Pancreatic cancer Social History Housing: House Alcohol intake: never Patient Tobacco Use Status: Former Tobacco user Tobacco use type: Cigarette Cigarette Packs Per Day: 0.3 Cigarettes Per Day: 10 e-Cigarette/Vaping Use: Never Used Second Hand Smoke Exposure: No Advance Directives Date on File: 08/23/21 service: No Current occupational status: employed Cognitive needs: No Hearing needs: No Vision needs: Yes Female Reproductive History Menstrual Age of Menarche: 14 Review of Systems Const All systems reviewed & are unremarkable except as noted in HPI and below Physical Exam Vital Signs: Last Vital Signs Temp 98.3 F 12/23/24 15:38 Pulse 80 12/23/24 15:38 BP 122/78 12/23/24 15:38 Pulse Ox 99 12/23/24 15:38 Oxygen Delivery Method Room Air 12/23/24 15:38 Assessment & Plan Assessment & Plan (1) URI, acute: Code(s): J06.9 - Acute upper respiratory infection, unspecified Plan: The patient is prescribed a course of methylprednisolone to manage her asthma- related breathlessness. Tessalon Perles will be utilized for her nocturnal cough. A chest x-ray will be conducted imminently to assess for bacterial pneumonia. She will also be tested for influenza, COVID-19, and RSV. Should these viral tests be negative, azithromycin will be administered to address potential bacterial infection, consistent with exposure history. Based on chest x-ray findings, antibiotic therapy may commence immediately to ensure compreh ensive treatment of the presenting symptoms. Symptom persistence and diagnostic findings will guide further intervention. Patient was informed and verbally consented to the use of an ambient scribe for clinic note documentation during this visit Orders: Orders XR chest 2V Today R05.9 - Cough, unspecified SARS-CoV2/FLU/RSV Today J06.9 - Acute upper respiratory infection, unspecified Medications: New methylprednisolone PO PER PKG DIR for 6 days 21 ea 0RF benzonatate 200 mg PO TID PRN 14 caps 0RF cough Coding Level of Care Code Est Pt Level 4 (74750) Diagnoses URI, acute J06.9
[2024-12-23 15:38] VITALS: BP 122/78; PULSE 80; TEMP 36.8; O2SAT 99
== END 2024-12-23 16:21 | disposition home or self-care (01) ==
PROVIDERS: PCP Internal Medicine; Visit Provider Physician Assistant
DX: J06.9 Acute upper respiratory infection, unspecified (principal)

== ENCOUNTER 2024-12-23 14:35 | Outpatient (REF) | payer SELFPAY ==
--- OUTSIDE RECORDS SUMMARY | 2024-12-23 16:18 | XMS_ITS | Clinical Summary ---
Author Organization [facility] ity Address [address] [place] [address] Care Team Providers Care Music Mixer Name Role Phone Unavailable Primary Care Provider [...]
== END 2024-12-23 14:36 | disposition home or self-care (01) ==
LOC: HO.LAB 14:35
PROVIDERS: PCP Internal Medicine
DX: J06.9 Acute upper respiratory infection, unspecified (principal)
CPT/HCPCS: 99212

== ENCOUNTER 2024-12-23 16:21 | Outpatient (REF) | payer SELFPAY ==
--- NOTE | ~2024-12-23 | XR_ITS ---
EXAMINATION: XR CHEST CLINICAL INFORMATION: R05.9 - Cough, unspecified COMPARISON: 11/13/2023. TECHNIQUE: 2 views of the chest were obtained. FINDINGS: The cardiac, hilar, and mediastinal contours are normal. The lungs are clear bilaterally. There is no pneumothorax or pleural effusion. There is no focal osseous or soft tissue abnormality. XR/XR chest 2V IMPRESSION: Normal chest. Electronically signed by: Byron Zacarias MD 12/23/2024 05:08 PM QIANA CUEVAS
== END 2024-12-23 16:22 | disposition home or self-care (01) ==
LOC: HO.HMGCX 16:21
PROVIDERS: PCP Internal Medicine; Visit Provider Physician Assistant
DX: R05.9 Cough, unspecified (principal)
CPT/HCPCS: 71046

== ENCOUNTER → 2024-12-23 16:28 | Outpatient (BNV) | payer MEDICARE, SELFPAY | PROVIDERS: PCP Internal Medicine; Visit Provider Radiology Diagnostic Radiology | DX: R05.9 Cough, unspecified (principal) | CPT/HCPCS: 71046 ==

== ENCOUNTER 2024-12-24 11:29 | Outpatient (REF) | payer MEDICARE, SELFPAY ==
--- OUTSIDE RECORDS SUMMARY | 2024-12-24 11:32 | XMS_ITS | Clinical Summary ---
Author Organization [facility] ity Address [address] [place] [address] Care Team Providers Care Bag Machine Set Up Operator Name Role Phone Unavailable Primary Care [...]
[2024-12-24 12:19] LABS: Influenza A PCR NEGATIVE (Negative); Influenza B PCR NEGATIVE (Negative); Resp Syncy Virus RNA Qual PCR NEGATIVE (Negative); SARS COV2 PCR INHOUSE NEGATIVE (Negative)
== END 2024-12-24 11:30 | disposition home or self-care (01) ==
LOC: HO.LNP 11:29
PROVIDERS: Visit Provider Physician Assistant
DX: J06.9 Acute upper respiratory infection, unspecified (principal)
CPT/HCPCS: 0241U

== ENCOUNTER 2024-12-27 08:46 | Outpatient (AMB) | payer SELFPAY ==
[2024-12-27 08:49] VITALS: BP 138/76; PULSE 110; O2SAT 94; BMI 31.1
--- NOTE | 2024-12-27 08:49 | A.OFFPC_ITS ---
Vital Signs 12/27/24 08:49 Height 5 ft 11 in Weight 223 lb BMI 31.1 BP 138/76 Blood Pressure Location Lt brachial Position Sitting Pulse 110 H Pulse Source Pulse Oximeter Pulse Oximetry (%) 94 Oxygen Delivery Method Room Air Intake Visit Reasons: 3 month f/u Allergies vancomycin [VANCOMYCIN] Allergy (Severe, Verified 12/27/24 08:49) ANAPHYLAXIS nitrofurantoin [From Macrobid] Allergy (Intermediate, Verified 12/27/24 08:49) Rash fluconazole [Diflucan] Allergy (Unknown, Verified 12/27/24 08:49) anaphylaxis pantoprazole [Protonix] Allergy (Unknown, Verified 12/27/24 08:49) anaphylaxis phenytoin [Dilantin] Allergy (Unknown, Verified 12/27/24 08:49) hives Tobacco use date assessed: 12/27/24 Dental Screening Dental Screen Date: 12/27/24 Did you have a dental visit in the last 12 months?: No Did you have a dental problem in the last 6 months where you did not have access to dental care?: No Was dental information given to patient?: Patient has dentist HPI 3 month f/u HPI Details congested, The patient is a 49-year-old female presenting with a request for a work excuse note and a follow-up for acute bronchitis. She reports being on antibiotics, specifically Zithromax (Azithromycin), and prednisone, initiated after a recent evaluation at an urgent care center. The patient was initially seen on a Thursday, with subsequent worsening by Thursday, experiencing extreme fatigue and inability to perform daily activities, resolving somewhat by Thursday. Her symptoms included sharp chest pain during cough, significant nasal congestion with a profuse nasal discharge that required numerous tissue boxes. The patient reports negative testing for flu, COVID-19, and RSV, and imaging from a chest X-ray appeared unremarkable. The patient has a history of smoking, asthma, GERD, and general anxiety disorder. Previous adverse lifestyle factors have included smoking tobacco, although there is a recent cessation attempt coinciding with current illness. The patient was advised previously to stop smoking and continue asthma medications, including Albuterol, Montelukast, and Advair. She was reminded of due preventive screenings like a mammogram and colonoscopy. The patient's current medication regime also includes carbamazepine. She communicated a desire to improve her obesity-related issues, reporting a BMI of 41. PFSH Medical History (Updated 12/27/24 @ 09:01 by Myranda Benitez MD) Breast cancer screening by mammogram Asthma exacerbation Obesity (BMI 30.0-34.9) PUD (peptic ulcer disease) PAO II (cervical intraepithelial neoplasia II) HPV in female Amenorrhea Head trauma Tobacco abuse Vitamin D deficiency Anxiety GERD (gastroesophageal reflux disease) Asthma Complex partial seizure Surgical History History of removal of ovarian cyst History of tubal ligation Cavernous hemangioma of brain Family History Father Parkinson disease Stroke CVD (cardiovascular disease) TIA (transient ischemic attack) Mother Non Hodgkin's lymphoma Hypertension Paternal Aunt Ovarian cancer Paternal Uncle Pancreatic cancer Social History Housing: House Alcohol intake: never Patient Tobacco Use Status: Former Tobacco user Tobacco use type: Cigarette Cigarette Packs Per Day: 0.3 Cigarettes Per Day: 10 e-Cigarette/Vaping Use: Never Used Second Hand Smoke Exposure: No Advance Directives Date on File: 08/23/21 service: No Current occupational status: employed Cognitive needs: No Hearing needs: No Vision needs: Yes Female Reproductive History Menstrual Age of Menarche: 14 Questionnaire Thrive Questionnaire Date Thrive assessed: 12/27/24 I am a: Patient What is your living situation today?: I have a steady place to live Within the past 12 months, did the food you bought not last and you didn't have the money to get more?: Never true Within the past 12 months, did you worry whether your food would run out before you got money to buy more?: Never true Do you have trouble paying for medicines?: No Do you have trouble getting transportation to medical appointments?: No Do you have trouble paying your heating and electricity bill?: No Do you have trouble taking care of your child, family member or friend?: No Do you have trouble with day-to-day activities such as bathing, preparing meals, shopping, managing finances, etc.?: No Are you currently unemployed and looking for a job?: No Are you interested in more education?: No Currently or been in a relationship where the following occur: No concerns reported THRIVE Score: 0 AUDIT C Alcohol Use Questionnaire (AUDIT-C) 3. How often do you have six or more drinks on one occasion?: Never Total Score: 0 MANUEL-7 AMB Questionnaire MANUEL-7 Date MANUEL - 7 assessed: 12/27/24 Feeling nervous, anxious, or on edge: 1 = Several days Not being able to stop or control worryin = Several days Worrying too much about different things: 1 = Several days Trouble relaxin = Several days Being so restless that it is hard to sit still: 0 = Not at all Becoming easily annoyed or irritable: 1 = Several days Feeling afraid as if something awful might happen: 0 = Not at all Total MANUEL-7 score (0-4 normal; 5-9 mild; 10-14 moderate; 15-21 severe): 5 Source: Developed by Drs. Pk Escamilla, Vickie Irene, Sea Sosa and colleagues, with an educational sal from [employer]. Physical exam (Primary Care) Vital Signs: Last Vital Signs Pulse 110 H 12/27/24 08:49 BP 138/76 12/27/24 08:49 Pulse Ox 94 12/27/24 08:49 Oxygen Delivery Method Room Air 12/27/24 08:49 BMI result Body Mass Index 31.1 Tobacco/Smoking Status: Tobacco use Status Tobacco use date assessed 12/27/24 12/27/24 08:51 Patient Tobacco Use Status Former Tobacco user 12/27/24 08:51 Tobacco use type Cigarette 12/27/24 08:51 e-Cigarette/Vaping Use Never Used 12/27/24 08:51 Thrive Assessment: Date of Thrive Assessment Date Thrive assessed 12/27/24 12/27/24 08:51 Currently or been in a relationship where the following occur: No concerns reported Const General: alert; No acute distress Eyes Conjunctivae: conjunctivae normal Resp Auscultation: clear to auscultation bilaterally Cardio Rate: regular rate Rhythm: regular rhythm GI Inspection: Yes normal to inspection Extrem General: Yes normal to inspection and No edema Coding Level of Care Code Est Pt Level 4 (34580) Diagnoses Acute bronchitis J20.9 Obesity (BMI 30-39.9) E66.9 Tobacco abuse Z72.0 Complex partial seizure G40.209 Mild intermittent asthma without complication J45.20 Asthma severity: mild Asthma persistence: intermittent Asthma complication type: uncomplicated Generalized anxiety disorder F41.1 Breast cancer screening by mammogram Colon cancer screening Assessment & Plan Assessment & Plan (1) Acute bronchitis: Code(s): J20.9 - Acute bronchitis, unspecified Category: Medical Plan: Patient has been started on Zithromax. 3 days ago but was started on steroids 4 days ago (2) Obesity (BMI 30-39.9): Code(s): E66.9 - Obesity, unspecified Category: Medical Plan: Diet and exercise (3) Tobacco abuse: Comment: 1/2 pack a day 06/2023 Code(s): Z72.0 - Tobacco use Category: Medical Plan: Patient is strongly advised to stop smoking (4) Complex partial seizure: Comment: With cavernous hemangioma resection. Dr. Tran, Dr. 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 Continue with albuterol montelukast and Advair. (6) Generalized anxiety disorder: Comment: Adjustment disorder with mixed anxiety and depressed mood July 2020 Code(s): F41.1 - Generalized anxiety disorder Category: Medical Plan: Continue with present medication (7) Breast cancer screening by mammogram: Code(s): Z. - Encounter for screening mammogram for malignant neoplasm of breast Category: Medical Plan: Patient is reminded about mammogram (8) Colon cancer screening: Code(s): Z12. - Encounter for screening for malignant neoplasm of colon Category: Medical Plan: Patient is reminded about colonoscopy Plan - Continuation of Zithromax Azithromycin) for acute bronchitis. - Patient recommended to continue prednisone as prescribed. - Advised to maintain current asthma management with Albuterol, Montelukast, and Advair. - Strong emphasis on smoking cessation support due to its impact on her respiratory and general health is recommended. - Due preventative screenings emphasized: patient reminded to arrange mammogram and colonoscopy. - Referral for weight management consultation due to obesity is encouraged. - Blood investigations to assess thyroid function advised, considering thyroid issues may affect medication choices. - Prescription for weight management medication Zeppound) to be sent to the patient?s preferred pharmacy. Medications: New tirzepatide (weight loss) (Zepbound) for 4 weeks 2.5 mg (0.5 mL) subcut QWEEK 2 mL 0RF E66.9 - Obesity, unspecified
--- OUTSIDE RECORDS SUMMARY | 2024-12-27 09:15 | XMS_ITS | Continuity of Care Document ---
Author Organization [facility] Address [address] [facility], [address] d Floor, [address] [place] [id number]- Care Team Providers Care Vending Machine Refiller Name Role Phone Po Myranda ROLAND Primary Care Physician Encounter [facility] Date(s): 11/23/24 - 12/23/24 [facility] [address] [place] [address] [address]rd Floor, [address] [place] [id number]- Attending Physician: Monse Atwood Encounter Type: Triage Allergies, Adverse Reactions, Alerts Substance Criticality Severity Reaction Reaction Severity Status vancomycin Active Dilantin Active Protonix Active Latex BREAKS OUT Active Morphine Sulfate severe abdo reji and chest pain Active Immunizations Given and [...] 2Admin Note: [employer] Diuent Lot # [id number] Exp: 01/05/2012 3Admin Note: [employer] Medications Advair Diskus 100 mcg-50 mcg inhalation powder 1, puffs, Inhalation, 2 times a day, Refills 0, Maintenance, 03/05/18 4:30:20 PM EDT Start Date: 03/05/18 Status: Ordered Repeat number: 1 Sandra 180 mg oral tablet 1 tablet = 180 mg, By Mouth, Daily at bedtime, # 30 tablet, 1 Refills, Maintenance, 12/19/10 10:30:06 AM EST, [facility] [id number] Start Date: 12/19/10 Stop Date: 02/17/11 Status: Ordered Quantity: 30.0 Unit: tablet Repeat number: 2 carbamazepine 200 mg oral capsule, extended release See Instructions, TAKE 2 CAPSULES BY MOUTH IN THE MORNING AND 3 CAPSULES BY MOUTH IN THE EVENING, #480 capsule, 3 Refills, Maintenance, 11/23/24 2:04:00 PM EST, [facility]/pharmacy #[id number], 179, cm, 11/23/24 12:56:00 EST, Height Start Date: 11/23/24 Status: Ordered Quantity: 480.0 Unit: capsule Repeat number: 4 Compression Stockings See Instructions, # 2 pair, Maintenance, surgical, calf length 20-30 mm Hg, 03/05/18 3:52:33 PM EDT,Compound Start Date: 03/05/18 Status: Ordered Quantity: 2.0 Unit: pair Repeat number: 1 Keppra 500 mg oral tablet 3 tablet, By Mouth, 2 times a day, # 540 tablet, 3 Refills, 12/22/24 6:04:00 AM EST, [facility]/pharmacy #[id number], 179, cm, 11/23/24 12:56:00 EST, Height Start Date: 12/22/24 Status: Ordered Quantity: 540.0 Unit: tablet Repeat number: 4 PHENobarbital 32.4 mg oral tablet See Instructions, TAKE 1 TABLET BY MOUTH EVERY MORNING , AND 2 TABLETS NIGHTLY, # 270 tablet, 3 Refills, Maintenance, 11/23/24 2:04:00 PM EST, [facility]/pharmacy #[id number], 179, cm, 11/23/24 12:56:00 EST, Height Start Date: 11/23/24 Status: Ordered Quantity: 270.0 Unit: tablet Repeat number: 4 ProAir HFA 90 mcg/inh inhalation aerosol with adapter 2, puffs, Inhalation, 4 times a day, Refills 0, Maintenance, 03/05/18 4:30:05 PM EDT Start Date: 03/05/18 Status: Ordered Repeat number: 1 Singulair 10 mg oral tablet 1 tablet = 10 mg, By Mouth, Daily at bedtime, # 30 tablet, 5 Refills, Maintenance, 10/14/10 11:51:58AM EST, [facility] [id number] Start Date: 10/14/10 Stop Date: 04/12/11 Status: Ordered Quantity: 30.0 Unit: tablet Repeat number: 6 Vitamin D3 2000 intl units oral capsule 1 capsule, By Mouth, Daily, # 30 capsule, 11 Refills, [id number], 179, cm, 03/16/21 12:20:00 EDT, Height, 94.2, kg, 03/16/21 12:24:00 EDT, Dry Weight Start Date: 09/20/21 Status: Ordered Quantity: 30.0 Unit: capsule Repeat number: 1 Problem List Condition Confirmation Course Effective Dates Status Health St atus Informant Acne Confirmed Active Adjustment disorder with mixed anxiety and depressed mood Confirmed Active Allergy Confirmed 06/08/08 Active Asthma Confirmed 05/10/08 Active Depressive Disorder, Not Elsewhere Classified Confirmed Active FH - Family history 1 Confirmed 11/21/08 Active Furuncle of neck Confirmed Active Gastric reflux Confirmed 11/21/08 Active Obese class I Confirmed Active Seizure disorder Confirmed 05/10/08 Active SH [...] fri, sat, sun; entered on: 09/11/17 Sex Sex Representation Female (finding) Patient Care team information Care Team Personnel Name: Myranda Benitez MD Position: Reference Physician Member Role: PCP Address: [address] [place] [id number] Telecom: Name: Shasta Lamar RN, I Position: S RN Member Role: Primary Care Nurse Care Team Related Persons Name: CIERA PARK Name: LASHAUN JOINER Name: TRICE JOINER Name: LIN GIBSON Name: LIN LEMON Insurance Providers [facility] Health Plan Information #: 1 Payer: MEDICARE PART B OUTPT Member Number: NA Policy Number: NA Group Number: NA Health Plan Information #: 2 Payer: [place] Member Number: NA Policy Number: NA Group Number: NA
--- OUTSIDE RECORDS SUMMARY | 2024-12-27 09:16 | XMS_ITS | Clinical Summary ---
Author Organization [facility] ity Address [address] [place] [address] Care Team Providers Care Precision Lens Polisher Name Role Phone Unavailable Primary Care Provider [...] patient's age to complete this topic Meningococcal B Vacine Aged Out No lo nger eligible based on patient's age to complete [...]
--- OUTSIDE RECORDS SUMMARY | 2024-12-27 09:16 | XMS_ITS | Continuity of Care Document ---
Author Organization [facility]. If a dditional information is needed, contact Health Information Management at [phone] Address [address] [place] [address] Phone Care Team Providers Care Senior Statistical Programmer Name Role Phone Unavailable Unavailable Unavailable Unavailable [...]
== END 2024-12-27 09:20 | disposition home or self-care (01) ==
PROVIDERS: PCP Internal Medicine; Visit Provider Internal Medicine
DX: J20.9 Acute bronchitis, unspecified (principal); G40.209 Localization-related (focal) (partial) symptomatic epilepsy and epileptic syndromes with complex partial seizures, not intractable, without status epilepticus; E66.9 Obesity, unspecified; Z68.31 Body mass index [BMI] 31.0-31.9, adult; Z72.0 Tobacco use; J45.20 Mild intermittent asthma, uncomplicated; F41.1 Generalized anxiety disorder; Z12.31 Encounter for screening mammogram for malignant neoplasm of breast; Z12.11 Encounter for screening for malignant neoplasm of colon

== ENCOUNTER → 2024-12-27 08:46 | Outpatient (BNVA) | payer MEDICARE, SELFPAY | PROVIDERS: PCP Internal Medicine; Visit Provider Internal Medicine | DX: J20.9 Acute bronchitis, unspecified (principal); E66.9 Obesity, unspecified; G40.209 Localization-related (focal) (partial) symptomatic epilepsy and epileptic syndromes with complex partial seizures, not intractable, without status epilepticus; J45.20 Mild intermittent asthma, uncomplicated; F41.1 Generalized anxiety disorder; Z72.0 Tobacco use | CPT/HCPCS: 99212 ==

== ENCOUNTER 2025-01-26 09:25 | Outpatient (REF) | payer OTHER, SELFPAY ==
[2025-01-26 16:21] LABS: MANUAL DIFF FLAG NO
[2025-01-26 16:28] LABS: Basophils Percent Auto 0.6 % (0-2); Eosinophils Absolute Auto 0.3 X10*3/uL (0.0-0.4); Eosinophils Percent Auto 5.4 % (0-4); Hematocrit 34.6 % (37.0-47.0); Hemoglobin 11.7 g/dl (12.0-16.0); Imm Gran Abs Auto 0.02 X10*3/uL (0.00-0.03); Imm Gran Pct Auto 0.3 % (0.0-0.4); Lymphocytes Absolute Auto 2.4 X10*3/uL (1.2-4.9); Lymphocytes Percent Auto 37.5 % (20-40); Mean Corpuscular HGB Conc 33.8 g/dl (31.0-35.0); Mean Corpuscular Hemoglobin 29.7 pg (27.0-33.0); Mean Corpuscular Volume 87.8 fL (80.0-98.0); Mean Platelet Volume 9.2 fL (9.4-12.3); Monocytes Absolute Auto 0.4 X10*3/uL (0.1-1.2); Monocytes Percent Auto 6.2 % (2-11); Neutrophils Absolute Auto 3.1 x10*3/uL (2.0-8.3); Platelet Count 359 X10*3/uL (160-400); Red Blood Count 3.94 X10*6/uL (4.20-5.50); Red Cell Distribution Width 13.5 % (11.0-16.0); White Blood Count 6.3 X10*3/uL (4.8-10.8)
[2025-01-26 16:44] LABS: Carbamazepine Tegretol 7.1 mcg/mL (5.0-12.0)
[2025-01-26 16:48] LABS: Alanine Aminotransferase 19 U/L (0-31); Albumin Level 3.9 g/dL (3.5-5.0); Alkaline Phosphatase 83 U/L (39-117); Anion Gap 10 (12-20); Aspartate Amino Transferase 20 U/L (5-31); Bilirubin Total 0.1 mg/dL (0.0-1.0); Blood Urea Nitrogen 6 mg/dL (9-16); Calcium 8.6 mg/dL (8.4-10.2); Carbon Dioxide 27 mmol/L (22-29); Chloride 104 mmol/L (96-108); Cholesterol 180 mg/dL (<200); Estimated Glomerular Filt Rate > 60; Glucose Random 88 mg/dL (60-115); HDL Cholesterol 58 mg/dL (>40); LDL Cholesterol Calculated 102 mg/dL (<100); Potassium 4.6 mmol/L (3.3-5.1); Sodium 136 mmol/L (135-145); Total Protein 7.3 g/dL (6.5-8.0); Triglycerides 100 mg/dL (<150)
[2025-01-26 17:04] LABS: Free T4 (Free Thyroxine) 0.77 ng/dL (0.71-1.85); Thyroid Stimulating Hormone 1.17 uIU/mL (0.32-4.0); Vitamin D 25-OH Total 21.2 ng/mL (>30)
[2025-01-26 17:14] LABS: Folate 4.9 ng/mL (> or = 4.0); Vitamin B12 307 pg/mL (200-900)
[2025-01-26 17:32] LABS: Appearance Urine Cloudy; Color Urine Yellow; Glucose Urine UA Negative (Negative); Leukocyte Esterase Urine Large (3+) (Negative); Nitrite Urine Negative (Negative); PH 5.5 (5.0-9.0); Specific Gravity - Urine 1.015 (1.005-1.025); UMIC TRIGGER UACC YES; Urine Blood Trace (Negative); Urine Ketones Negative (Negative); Urine Protein Negative (Neg-Trace)
[2025-01-26 17:43] LABS: Bacteria Urine 3+ (None Seen); Hyaline Casts Urine 0-2 /LPF (0-2); UACC Culture Trigger YES
== END 2025-01-26 09:26 | disposition home or self-care (01) ==
LOC: HO.HMGCLDS 09:25
PROVIDERS: PCP Internal Medicine; Referring Provider Internal Medicine; Visit Provider Physician Assistant Surgical
DX: G40.209 Localization-related (focal) (partial) symptomatic epilepsy and epileptic syndromes with complex partial seizures, not intractable, without status epilepticus (principal); E78.00 Pure hypercholesterolemia, unspecified; R30.0 Dysuria
CPT/HCPCS: 36415; 80053; 80061; 80156; 80184; 81001; 82306; 82607; 82746; 84439; 84443; 85025; 87086

== ENCOUNTER 2025-02-03 08:05 | Outpatient (AMB) | payer OTHER, SELFPAY ==
--- NOTE | 2025-02-03 10:09 | MHC.OFFVISWM ---
VS Expanded 02/03/25 10:33 Height 5 ft 11 in Weight 225 lb 4 oz BMI 31.4 Body Fat % 39.7 Body Fat Mass 89.6 Fat Free Mass 135.8 Visceral Fat Rating 9 Body Water % 43 Body Water Mass 96.8 Basal Metabolic Rate/Score 1,869 Intake Visit Reasons: TV CURRICULUM AND ASSESSMENT COORDINATOR MWL *SEE COMMENTS* Allergies phenytoin [Dilantin] Allergy (Severe, Verified 02/03/25 10:10) Anaphylaxis vancomycin [VANCOMYCIN] Allergy (Severe, Verified 02/03/25 10:10) ANAPHYLAXIS nitrofurantoin [From Macrobid] Allergy (Intermediate, Verified 02/03/25 10:10) Rash fluconazole [Diflucan] Allergy (Unknown, Verified 02/03/25 10:10) anaphylaxis pantoprazole [Protonix] Allergy (Unknown, Verified 02/03/25 10:10) anaphylaxis Medication List - Last Reconciled 02/03/25 by Juice Cifuentes MD albuterol sulfate 90 mcg/actuation 2 puffs inhalation Q4-6H PRN carbamazepine ER Take 2 capsules in the morning and 3 capsules in the evening orally; 30 days cholecalciferol (vitamin D3) 50 mcg PO DAILY fexofenadine (Allergy Relief (fexofenadine)) 180 mg PO DAILY fluticasone propion-salmeterol 250-50 mcg/dose (Advair Diskus) 1 inh inhalation BID folic acid 1 mg PO DAILY Keppra (levetiracetam) 1,500 mg (3 x 500 mg) PO BID 90 days NS lansoprazole (Prevacid) 30 mg PO DAILY montelukast 10 mg PO DAILY 90 days phenobarbital 32.4 mg orally; once in am and 2 at night 90 days sumatriptan succinate 50 mg PO Q2-4H PRN valacyclovir 500 mg PO BID 3 days HPI HPI TV CURRICULUM AND ASSESSMENT COORDINATOR MWL *SEE COMMENTS*: Details: Start time: 10.07am, End time: 10.45am ?I spent 33 minutes speaking with the patient on the phone plus an additional 5 minutes reviewing and updating records for a total of 38 minutes HPI Comments Details: Overall weight loss efforts: exercise, self diets Wakes up: 7am, Sleeps: 10pm Breakfast: skips Lunch: 1.30-2pm (salad with some meat) Dinner: 7.30pm (turkey, meatloaf, stuffed peppers) Snacks: 9pm (popcorn) Exercise: Outside bike and gym Beverages: Coffee: (1 cup/d with cream and sugar), tea: none, soda: Mountain Dew 1 can/day, juice: none, ETOH: none PFSH Medical History (Updated 02/03/25 @ 10:19 by Juice Ciufentes MD) Seizures Hx LEEP (loop electrosurgical excision procedure), cervix, Breast cancer screening by mammogram Asthma exacerbation Obesity (BMI 30.0-34.9) PUD (peptic ulcer disease) PAO II (cervical intraepithelial neoplasia II) HPV in female Amenorrhea Head trauma Tobacco abuse Vitamin D deficiency Anxiety GERD (gastroesophageal reflux disease) Asthma Complex partial seizure Surgical History (Updated 01/26/25 @ 10:01 by Sheila Garcia CMA) Hx of bladder endoscopy History of removal of ovarian cyst History of tubal ligation Cavernous hemangioma of brain Family History (Updated 01/26/25 @ 10:03 by Sheila Garcia CMA) Father Parkinson disease Stroke CVD (cardiovascular disease) TIA (transient ischemic attack) Mother Non Hodgkin's lymphoma Hypertension Paternal Aunt Ovarian cancer Paternal Uncle Pancreatic cancer Daughter Heart problem Son No problems noted. Daughter Mental health disorder Depression Anxiety Social History (Updated 01/26/25 @ 10:03 by Sheila Garcia CMA) Housing: House Alcohol intake: never Patient Tobacco Use Status: Former Tobacco user Tobacco use type: Cigarette Cigarettes Per Day: 1 e-Cigarette/Vaping Use: Never Used Second Hand Smoke Exposure: No Advance Directives Date on File: 08/23/21 service: No Current occupational status: employed Cognitive needs: No Hearing needs: No Vision needs: Yes Female Reproductive History Menstrual Age of Menarche: 14 Telehealth Telehealth Telehealth Platform: Telephone Location of provider rendering services: practice address Location of patient: address on file Patient Identification confirmed using: Name, : Yes Telehealth method: voice only Patient verbally consented to treatment: Yes Patient verbally consented to billing insurance company: Yes Patient informed of any privacy concerns related to visit: Yes Minutes spent on Phone/Video with Pt.: 38 Assessment & Plan Assessment & Plan (1) Obesity (BMI 30-39.9): Code(s): E66.9 - Obesity, unspecified Category: Medical Plan: 1. Start the Zepbound when you get your body composition scale once a week. We discussed the potential side effects of Zepbound such as nausea, vomiting, abdominal pain, diarrhea and constipation and you will need to contact me if any of these symptoms occur or for any other new symptom you may experience 2. You will receive a link of our software david to generate an individualized nutritional and exercise plan specific for you. Please send me a screenshot of the plans you will generate Meal to include lean meat (beef, fish, pork, turkey, chicken), or trinidadian yogurt, or egg whites, or beans with a salad with olive oil and fruits (berries, pears, apples, kiwi). Avoid salt, breads, potatoes, rice, pasta, desserts. ?3. If you choose shakes, each shake would be drunk slowly, like coffee in a period of 2 hours. ?4. If you choose bars, cut each bar in 4 pieces and eat each piece in 30min ?to make each bar last 2 hours. ?5. I emphasized the importance of measuring accurately the food portion and measure it when serving the food in plate ?6. The meal portions include a specific number of forks of meat and salad. You always eat the meat portion but you can replace up to half of salad/vegetables portion with rice, potatoes or pasta, or a fruit ?if you like. The less you do it the better weight loss will be. ?7. One full-size fork is what it can be scooped on the fork without falling aside and not what can be bit with the fork. Use regular forks like those you find in a typical restaurant. ?8.? Please buy the body composition scale we discussed and send me weight measurements as soon as possible and then once a week. Always include your diet and exercise plan. 9. The best exercise choice would be to use your treadmill or stationary bike at home or at the gym that can track calories. You can create and exercise plan with the [employer] david. ?10.?It is important of avoiding and for at least 18 months postoperatively and has been discussed at the infosession. ?11. Goal is to lose at least 1.5-2lbs per week ?12. Goal to lose at least 10% of your weight before, which is about 25lbs. Minimum weight goal: 200lbs 13. Please follow the diet plan exactly without any change. If you don't like something about the plan or you feel hungry you need to communicate with me so I can help you revise the plan. You should not change the plan yourself. Medications: New tirzepatide (weight loss) (Zepbound) for 4 weeks 2.5 mg (0.5 mL) subcut QWEEK 2 mL 0RF E66.9 - Obesity, unspecified
[2025-02-03 10:33] VITALS: BMI 31.4
== END 2025-02-03 10:46 | disposition home or self-care (01) ==
LOC: HO.HBS 08:05
PROVIDERS: PCP Internal Medicine; Visit Provider Surgery
DX: E66.811 Obesity, class 1 (principal); Z68.31 Body mass index [BMI] 31.0-31.9, adult
CPT/HCPCS: 98009

== ENCOUNTER 2025-03-31 10:48 | Outpatient (AMB) | payer MEDICARE, SELFPAY ==
[2025-03-31 10:51] VITALS: BP 114/66; PULSE 97; RESP 20; TEMP 36.3; O2SAT 97; BMI 31.8
--- NOTE | 2025-03-31 10:51 | A.OFFPC_ITS ---
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 Accompanied by: Self / Same As Patient Allergies phenytoin [Dilantin] Allergy (Severe, Verified 03/31/25 10:52) Anaphylaxis vancomycin [VANCOMYCIN] Allergy (Severe, Verified 03/31/25 10:52) ANAPHYLAXIS nitrofurantoin [From Macrobid] Allergy (Intermediate, Verified 03/31/25 10:52) Rash fluconazole [Diflucan] Allergy (Unknown, Verified 03/31/25 10:52) anaphylaxis pantoprazole [Protonix] Allergy (Unknown, Verified 03/31/25 10:52) anaphylaxis Medication List - Last Reconciled 03/31/25 by Myranda Benitez MD albuterol sulfate 90 mcg/actuation 2 puffs inhalation Q4-6H PRN carbamazepine ER Take 2 capsules in the morning and 3 capsules in the evening orally; 30 days cholecalciferol (vitamin D3) 50 mcg PO DAILY fexofenadine (Allergy Relief (fexofenadine)) 180 mg PO DAILY fluticasone propion-salmeterol 250-50 mcg/dose (Advair Diskus) 1 inh inhalation BID folic acid 1 mg PO DAILY Keppra (levetiracetam) 1,500 mg (3 x 500 mg) PO BID 90 days NS lansoprazole (Prevacid) 30 mg PO DAILY montelukast 10 mg PO DAILY 90 days phenobarbital 32.4 mg orally; once in am and 2 at night 90 days sumatriptan succinate 50 mg PO Q2-4H PRN tirzepatide (weight loss) (Zepbound) 2.5 mg (0.5 mL) subcut QWEEK valacyclovir 500 mg PO BID 3 days Tobacco use date assessed: 03/31/25 Dental Screening Dental Screen Date: 03/31/25 Did you have a dental visit in the last 12 months?: No Did you have a dental problem in the last 6 months where you did not have access to dental care?: No Was dental information given to patient?: No HPI Obesity HPI Details PAtient is moving to weight management to [employer]. still smoking 2-3 /day- fotr the asthma- once a week. on seizure med. [facility] Medical History (Updated 03/31/25 @ 10:57 by Myranda Benitez MD) Rash Recurrent sinus infections Dysuria Angular cheilitis Asthma exacerbation Herpes zoster infection of oral mucosa Acute bronchitis URI, acute Hx LEEP (loop electrosurgical excision procedure), cervix, Breast cancer screening by mammogram Obesity (BMI 30.0-34.9) PUD (peptic ulcer disease) PAO II (cervical intraepithelial neoplasia II) HPV in female Amenorrhea Head trauma Tobacco abuse Vitamin D deficiency Anxiety GERD (gastroesophageal reflux disease) Asthma Complex partial seizure Surgical History Hx of bladder endoscopy History of removal of ovarian cyst History of tubal ligation Cavernous hemangioma of brain Family History Father Parkinson disease Stroke CVD (cardiovascular disease) TIA (transient ischemic attack) Mother Non Hodgkin's lymphoma Hypertension Paternal Aunt Ovarian cancer Paternal Uncle Pancreatic cancer Daughter Heart problem Son No problems noted. Daughter Mental health disorder Depression Anxiety Social History Housing: House Alcohol intake: never Patient Tobacco Use Status: Former Tobacco user Tobacco use type: Cigarette Cigarettes Per Day: 1 e-Cigarette/Vaping Use: Never Used Second Hand Smoke Exposure: No Advance Directives Date on File: 08/23/21 service: No Current occupational status: employed Cognitive needs: No Hearing needs: No Vision needs: Yes (Glasses) Female Reproductive History Menstrual Age of Menarche: 14 Questionnaire PHQ-9 Over the last 2 weeks, how often have you been bothered by any of the following problems? 1. Little interest or pleasure in doing things: not at all 2. Feeling down, depressed, or hopeless: not at all 3. Trouble falling or staying asleep, or sleeping too much: not at all 4. Feeling tired or having little energy: not at all 5. Poor appetite or overeating: not at all 6. Feeling bad about yourself - or that you are a failure or have let yourself or your family down: not at all 7. Trouble concentrating on things, such as reading the newspaper or watching television: not at all 8. Moving or speaking so slowly that other people could have noticed. Or the opposite - being so fidgety or restless that you have been moving around a lot more than usual: not at all 9. Thoughts that you would be better off or of hurting yourself in some way: not at all Total score: 0 Depression Screening Interpretation: Negative Depression Screening Done: Yes 78788 - PHQ-9 Billing: Yes Source: Developed by Drs. Pk Escamilla, Vickie Irene, Sea Sosa and colleagues, with an educational sal from [employer]. Thrive Questionnaire Date Thrive assessed: 03/31/25 I am a: Patient What is your living situation today?: I have a steady place to live Within the past 12 months, did the food you bought not last and you didn't have the money to get more?: I choose not to answer this question Within the past 12 months, did you worry whether your food would run out before you got money to buy more?: I choose not to answer this question Do you have trouble paying for medicines?: No Do you have trouble getting transportation to medical appointments?: No Do you have trouble paying your heating and electricity bill?: No Do you have trouble taking care of your child, family member or friend?: No Do you have trouble with day-to-day activities such as bathing, preparing meals, shopping, managing finances, etc.?: No Are you currently unemployed and looking for a job?: No Are you interested in more education?: No Please select the resources that you would like help with: None Currently or been in a relationship where the following occur: I choose not to answer THRIVE Score: 0 AUDIT C Alcohol Use Questionnaire (AUDIT-C) 1. How often do you have a drink containing alcohol?: Never Total Score: 0 Score Reviewed/Action Taken: No MANUEL-7 AMB Questionnaire MANUEL-7 Date MANUEL - 7 assessed: 03/31/25 Feeling nervous, anxious, or on edge: 0 = Not at all Not being able to stop or control worryin = Not at all Worrying too much about different things: 0 = Not at all Trouble relaxin = Not at all Being so restless that it is hard to sit still: 0 = Not at all Becoming easily annoyed or irritable: 0 = Not at all Feeling afraid as if something awful might happen: 0 = Not at all Total MANUEL-7 score (0-4 normal; 5-9 mild; 10-14 moderate; 15-21 severe): 0 Source: Developed by Drs. Pk Escamilla, Vickie Irene, Sea Sosa and colleagues, with an educational sal from [employer]. MANUEL-7 Assessment Billing MANUEL-7 Assessment Tool: MANUEL-7 Assessment 19960 Physical exam (Primary Care) Vital Signs: Last Vital Signs Temp 97.3 F 03/31/25 10:51 Oxygen Delivery Method Room Air 03/31/25 10:51 BMI result Body Mass Index 31.8 Tobacco/Smoking Status: Tobacco use Status Tobacco use date assessed 12/27/24 12/27/24 08:51 Patient Tobacco Use Status Former Tobacco user 01/26/25 10:03 Tobacco use type Cigarette 01/26/25 10:03 e-Cigarette/Vaping Use Never Used 01/26/25 10:03 Depression Screening Interpretation: Negative Thrive Assessment: Date of Thrive Assessment Date Thrive assessed 12/27/24 12/27/24 08:51 Currently or been in a relationship where the following occur: I choose not to answer Const General: alert; No acute distress Eyes Conjunctivae: conjunctivae normal Resp Auscultation: clear to auscultation bilaterally Cardio Rate: regular rate Rhythm: regular rhythm GI Inspection: Yes normal to inspection Extrem General: Yes normal to inspection and No edema Coding Level of Care Code Est Pt Level 4 (10611) Complex EM visit Add On G2211 Diagnoses Obesity (BMI 30-39.9) E66.9 Colon cancer screening Z12.11 Breast cancer screening by mammogram Z12.31 Tobacco abuse Z72.0 Complex partial seizure G40.209 Mild intermittent asthma without complication J45.20 Asthma severity: mild Asthma persistence: intermittent Asthma complication type: uncomplicated Gastroesophageal reflux disease without esophagitis K21.9 Esophagitis presence: without esophagitis Generalized anxiety disorder F41.1 Additional Codes MANUEL-7 Assessment Billing - MANUEL-7 Assessment Tool: MANUEL-7 Assessment 38690 ([id number]) PHQ-9 - 50876 - PHQ-9 Billing: Yes ([id number]) Assessment & Plan Assessment & Plan (1) Obesity (BMI 30-39.9): Code(s): E66.9 - Obesity, unspecified Category: Medical Plan: Patient has been seen in the weight management and has been prescribed Zepbound. (2) Colon cancer screening: Code(s): Z12.11 - Encounter for screening for malignant neoplasm of colon Category: Medical Plan: Patient is reminded about colonoscopy (3) Breast cancer screening by mammogram: Code(s): Z12.31 - Encounter for screening mammogram for malignant neoplasm of breast Category: Medical Plan: Patient is reminded about mammogram (4) Tobacco abuse: Comment: 1/2 pack a day 06/2023 Code(s): Z72.0 - Tobacco use Category: Medical Plan: Discussed with the patient on the need to stop smoking! (5) Complex partial seizure: Comment: With cavernous hemangioma resection. Dr. Tran, Dr. 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 1981 Code(s): G40.209 - Localization-related (focal) (partial) symptomatic epilepsy and epileptic syndromes with complex partial seizures, not intractable, without status epilepticus Category: Medical Plan: Continue to follow-up with Neurology on carbamazepine, phenobarbital and Keppra (6) Asthma: Code(s): J45.909 - Unspecified asthma, uncomplicated Category: Medical Qualifiers: Asthma severity: mild Asthma persistence: intermittent Asthma complication type: uncomplicated Qualified Code(s): J45.20 - Mild intermittent asthma, uncomplicated Plan: Continue with albuterol inhaler, montelukast as well as Advair. Patient is strongly advised to stop smoking! (7) GERD (gastroesophageal reflux disease): Code(s): K21.9 - Gastro-esophageal reflux disease without esophagitis Category: Medical Qualifiers: Esophagitis presence: without esophagitis Qualified Code(s): K21.9 - Gastro-esophageal reflux disease without esophagitis Plan: Patient is strongly advised to stop smoking! Avoid the foods that causes that usually spicy foods, tomato products, juices, coffee, soda and foods that your sensitive to. After eating do not lie down, allow 3-4 hours before in lie down. And keep the head of bed above 30 degrees to avoid the acid from going up. (8) Generalized anxiety disorder: Comment: Adjustment disorder with mixed anxiety and depressed mood July 2020 Code(s): F41.1 - Generalized anxiety disorder Category: Medical Plan: Discussed with the patient regarding counseling and therapy Plan History of Present Illness The patient is a 49-year-old female presenting for a follow-up concerning several chronic health conditions, including asthma, complex partial seizures, and GERD. She has reported changes in asthma symptoms, explicitly noting increased difficulty in breathing when exposed to humid conditions. Usage of albuterol as needed has been minimal, with compliance to inhaler usage noted. Her seizure disorder remains controlled without recent episodes, and she is currently prescribed Keppra and other medications. Tobacco use remains notable; the patient smokes two to three cigarettes daily, despite awareness of its adverse impact on her overall health. Mild anemia with a hemoglobin level of 11.7 g/dL was identified in recent blood work, alongside Vitamin D deficiency. The patient denies any related symptoms for the suspected urinary tract infection indicated in the urine analysis. Her familial and occupational responsibilities include exhaustive roles, contributing to fatigue. She is on a weight management regimen involving Zepbound. Aside from a recent mammogram, the need for a colonoscopy and lung cancer screening was addressed. Overall, the patient receives counseling regarding smoking cessation specifically and has made some progress in reducing intake. Health Maintenance - Advised colonoscopy screening - Discussion for future lung cancer screening around age 50 - Mammogram completed in July 2023, follow-up encouraged - Vitamin D deficiency identified; supplementation or outdoor exposure advised - Smoking cessation with potential counseling recommended to reduce risk to asthma and overall health - Encouraged participation in weight management program, currently using Zepbound Social History - Employed with long standing hours contributing to fatigue - Active tobacco use, currently two to three cigarettes per day with history of higher use - Involved in a weight management program; started on Zepbound - Discusses family responsibilities, affecting stress and lifestyle choices Review of Systems - Respiratory: Reports intermittent breathing difficulty influenced by humidity; denies frequent use of albuterol - Neurological: Denies recent seizure activity - Gastrointestinal: Reports occasional GERD symptoms; recent anemia - Genitourinary: Denies dysuria or other UTI symptoms - Musculoskeletal: Reports fatigue related to work demands Physical Exam Results - Labs: Mild anemia (hemoglobin 11.7 g/dL) - Vitamin D deficiency noted - Normal lipid profile (total cholesterol: 180 mg/dL; LDL cholesterol: 102 mg/dL) - Suspected UTI from urine analysis with presence of white blood cells; not symptomatic Plan Management continues for asthma, with regular medications adjusted as per symptom frequency, highlighting a focus on reducing respiratory triggers. The treatment regime for seizure disorder remains stable with existing prescriptions. GERD symptoms are monitored, with advised lifestyle modifications and regular follow-up of anemia status. Interventions include advising smoking cessation due to its impact on exacerbating chronic conditions, and potential risk reduction strategies by enrolling the patient in cessation programs. Screening recommendations are reinforced, with referrals for colonoscopy preparation initiated, ensuring compliance with preventative measures and health management programs. Adjustments for Vitamin D deficiency were also discussed. Patient was informed and verbally consented to the use of an ambient scribe for clinic note documentation during this visit. Discussion Notes During our discussion, I reviewed the importance of controlling the patient's asthma through regular use of prescribed inhalers and identifying environmental factors that might exacerbate symptoms. We discussed maintaining compliance with seizure medications and the importance of not missing doses. I emphasized lifestyle changes, including dietary adjustments to help manage GERD symptoms and the need to quit smoking to alleviate its detrimental effects on health. Regarding anemia identified in recent lab work, I advised closely monitoring iron levels and dietary intake. We addressed future health screenings, such as the importance of a colonoscopy by age 50, and I outlined the significance of lung screenings post-age 50 for smokers. Patient was informed about continuing with Vitamin D supplementation. Patient Instructions - Use albuterol inhaler as needed and maintain regular usage of asthma medications. - Continue current seizure medications and ensure follow-up with neurology. - Avoid smoking; consider enrolling in a cessation program. - Follow instructions for future colonoscopy screening. - Monitor and manage GERD through diet and lifestyle changes. - Take Vitamin D supplements as needed. - Report any new or worsening symptoms promptly. Orders: Referrals Gastroenterology Referral Z12.11 - Encounter for screening for malignant neoplasm of colon Lung Cancer Screening Referral Z72.0 - Tobacco use Medical Weight Management Referral E66.9 - Obesity, unspecified Medications: Refilled fluticasone propion-salmeterol 250-50 mcg/dose (Advair Diskus) 1 inh inhalation BID 3 ea 3RF J45.20 - Mild intermittent asthma, uncomplicated
--- OUTSIDE RECORDS SUMMARY | 2025-03-31 10:53 | XMS_ITS | Continuity of Care Document ---
Author Organization [facility]. If a dditional information is needed, contact Health Information Management at [phone] Address [address] [place] [address] Phone Care Team Providers Care [employer] Name Role Phone Unavailable Unavailable Unavailable Unavailable Unavailable Problems Herpes simplex Onset:25-Jun-2015 Dominguez Mental Status Cognitive function finding 25-Jun-2015 Allergies and Adverse Reactions vancomycin(Allergy) Onset: 25-Jun-2015 Medications CARBITROL Start:25-Jun-2015 fexofenadine hydrochloride 1 80 MG Oral Tablet;180 MILLIGRAM PO DAILY Start:25-Jun-2015 Comments:180 MG PO DAILY ferrous sulfate 325 MG Exten ded Release Oral Capsule;325 MILLIGRAM PO DAILY Start:25-Jun-2015 Comments:325 MG PO DAILY montelukast 10 MG Oral Table t [Singulair];10 MILLIGRAM PO DAILY Start:25-Jun-2015 Comments:10 MG PO DAILY levETIRAcetam 250 MG Oral Ta blet;1500 MILLIGRAM PO BID Start:25-Jun-2015 Comments:1500 MG PO BID PHENobarbital 30 MG Oral Tab let;32.4 MILLIGRAM PO BID Start:25-Jun-2015 Comments:32.4 MG PO BID 14 ACTUAT fluticasone propio jem 0.1 MG/ACTUAT / salmeterol 0.05 MG/ACTUAT Dry Powder Inhaler [Advair];1 INH INH BID Start:25-Jun-2015 Comments:1 INH INH BID Social History Smoking Status Smokes tobacco daily Recorded: 25-Jun-2015
== END 2025-03-31 11:15 | disposition home or self-care (01) ==
LOC: HO.HMCH 10:49
PROVIDERS: PCP Internal Medicine; Visit Provider Internal Medicine
DX: J45.20 Mild intermittent asthma, uncomplicated (principal); E66.9 Obesity, unspecified; G40.209 Localization-related (focal) (partial) symptomatic epilepsy and epileptic syndromes with complex partial seizures, not intractable, without status epilepticus; Z68.31 Body mass index [BMI] 31.0-31.9, adult; Z12.11 Encounter for screening for malignant neoplasm of colon; Z12.31 Encounter for screening mammogram for malignant neoplasm of breast; Z72.0 Tobacco use; K21.9 Gastro-esophageal reflux disease without esophagitis; F41.1 Generalized anxiety disorder

== ENCOUNTER → 2025-03-31 10:48 | Outpatient (BNVA) | payer MEDICARE, SELFPAY | PROVIDERS: PCP Internal Medicine; Visit Provider Internal Medicine | DX: E66.9 Obesity, unspecified (principal); Z68.31 Body mass index [BMI] 31.0-31.9, adult; G40.209 Localization-related (focal) (partial) symptomatic epilepsy and epileptic syndromes with complex partial seizures, not intractable, without status epilepticus; J45.20 Mild intermittent asthma, uncomplicated; K21.9 Gastro-esophageal reflux disease without esophagitis; F41.1 Generalized anxiety disorder; Z71.3 Dietary counseling and surveillance; Z87.891 Personal history of nicotine dependence | CPT/HCPCS: 96127; 99212 ==

== ENCOUNTER 2025-04-12 10:59 | Outpatient (AMB) | payer MEDICARE, SELFPAY ==
--- NOTE | 2025-04-12 11:00 | MHC.PC.OV ---
Intake Visit Reasons: Cold Symptoms Storage Administrator Required: No Accompanied by: Self / Same As Patient Allergies phenytoin [Dilantin] Allergy (Severe, Verified 04/12/25 11:00) Anaphylaxis vancomycin [VANCOMYCIN] Allergy (Severe, Verified 04/12/25 11:00) ANAPHYLAXIS nitrofurantoin [From Macrobid] Allergy (Intermediate, Verified 04/12/25 11:00) Rash fluconazole [Diflucan] Allergy (Unknown, Verified 04/12/25 11:00) anaphylaxis pantoprazole [Protonix] Allergy (Unknown, Verified 04/12/25 11:00) anaphylaxis Medication List - Last Reconciled 04/12/25 by Myranda Palencia Po, albuterol sulfate 90 mcg/actuation 2 puffs inhalation Q4-6H PRN carbamazepine ER Take 2 capsules in the morning and 3 capsules in the evening orally; 30 days cholecalciferol (vitamin D3) 50 mcg PO DAILY doxycycline hyclate 100 mg PO BID fexofenadine (Allergy Relief (fexofenadine)) 180 mg PO DAILY fluticasone propion-salmeterol 250-50 mcg/dose (Advair Diskus) 1 inh inhalation BID folic acid 1 mg PO DAILY Keppra (levetiracetam) 1,500 mg (3 x 500 mg) PO BID 90 days NS lansoprazole (Prevacid) 30 mg PO DAILY montelukast 10 mg PO DAILY 90 days phenobarbital 32.4 mg orally; once in am and 2 at night 90 days prednisone 4 tabs QD x 2 days then 3 tabs QD x 2 days then 2 tabs Qd x 2 days then 1 tab QD x 2 days PO daily; sumatriptan succinate 50 mg PO Q2-4H PRN tirzepatide (weight loss) (Zepbound) 2.5 mg (0.5 mL) subcut QWEEK valacyclovir 500 mg PO BID 3 days Tobacco use date assessed: 04/12/25 Dental Screening Dental Screen Date: 04/12/25 Did you have a dental visit in the last 12 months?: No Did you have a dental problem in the last 6 months where you did not have access to dental care?: No Was dental information given to patient?: No HPI Cold Symptoms HPI Details To call but patient has no answer 11:17. last week 3 days not feeling well slept for 12 hours , runny nose, cough, fevers, took mucinex, , inhaler use , no sore throat [facility] Medical History (Updated 04/12/25 @ 11:20 by Myranda Benitez MD) Rash Recurrent sinus infections Dysuria Angular cheilitis Asthma exacerbation Herpes zoster infection of oral mucosa Acute bronchitis URI, acute Hx LEEP (loop electrosurgical excision procedure), cervix, Breast cancer screening by mammogram Obesity (BMI 30.0-34.9) PUD (peptic ulcer disease) PAO II (cervical intraepithelial neoplasia II) HPV in female Amenorrhea Head trauma Tobacco abuse Vitamin D deficiency Anxiety GERD (gastroesophageal reflux disease) Asthma Complex partial seizure Surgical History Hx of bladder endoscopy History of removal of ovarian cyst History of tubal ligation Cavernous hemangioma of brain Family History Father Parkinson disease Stroke CVD (cardiovascular disease) TIA (transient ischemic attack) Mother Non Hodgkin's lymphoma Hypertension Paternal Aunt Ovarian cancer Paternal Uncle Pancreatic cancer Daughter Heart problem Son No problems noted. Daughter Mental health disorder Depression Anxiety Social History Housing: House Alcohol intake: never Patient Tobacco Use Status: Former Tobacco user Tobacco use type: Cigarette Cigarettes Per Day: 1 e-Cigarette/Vaping Use: Never Used Second Hand Smoke Exposure: No Advance Directives Date on File: 08/23/21 service: No Current occupational status: employed Cognitive needs: No Hearing needs: No Vision needs: Yes (Glasses) Female Reproductive History Menstrual Age of Menarche: 14 Questionnaire PHQ-9 Over the last 2 weeks, how often have you been bothered by any of the following problems? 1. Little interest or pleasure in doing things: not at all 2. Feeling down, depressed, or hopeless: not at all 3. Trouble falling or staying asleep, or sleeping too much: not at all 4. Feeling tired or having little energy: not at all 5. Poor appetite or overeating: not at all 6. Feeling bad about yourself - or that you are a failure or have let yourself or your family down: not at all 7. Trouble concentrating on things, such as reading the newspaper or watching television: not at all 8. Moving or speaking so slowly that other people could have noticed. Or the opposite - being so fidgety or restless that you have been moving around a lot more than usual: not at all 9. Thoughts that you would be better off or of hurting yourself in some way: not at all Total score: 0 Depression Screening Interpretation: Negative Depression Screening Done: Yes 91325 - PHQ-9 Billing: Yes Source: Developed by Drs. Pk Escamilla, Vickie Irene, Sea Sosa and colleagues, with an educational sal from [employer]. Thrive Questionnaire Date Thrive assessed: 04/12/25 I am a: Patient What is your living situation today?: I have a steady place to live Within the past 12 months, did the food you bought not last and you didn't have the money to get more?: I choose not to answer this question Within the past 12 months, did you worry whether your food would run out before you got money to buy more?: I choose not to answer this question Do you have trouble paying for medicines?: No Do you have trouble getting transportation to medical appointments?: No Do you have trouble paying your heating and electricity bill?: No Do you have trouble taking care of your child, family member or friend?: No Do you have trouble with day-to-day activities such as bathing, preparing meals, shopping, managing finances, etc.?: No Are you currently unemployed and looking for a job?: No Are you interested in more education?: No Please select the resources that you would like help with: None Currently or been in a relationship where the following occur: I choose not to answer THRIVE Score: 0 AUDIT C Alcohol Use Questionnaire (AUDIT-C) 1. How often do you have a drink containing alcohol?: Never 3. How often do you have six or more drinks on one occasion?: Never Total Score: 0 Score Reviewed/Action Taken: No MANUEL-7 AMB Questionnaire MANUEL-7 Date MANUEL - 7 assessed: 04/12/25 Feeling nervous, anxious, or on edge: 0 = Not at all Not being able to stop or control worryin = Not at all Worrying too much about different things: 0 = Not at all Trouble relaxin = Not at all Being so restless that it is hard to sit still: 0 = Not at all Becoming easily annoyed or irritable: 0 = Not at all Feeling afraid as if something awful might happen: 0 = Not at all Total MANUEL-7 score (0-4 normal; 5-9 mild; 10-14 moderate; 15-21 severe): 0 Source: Developed by Drs. Pk Escamilla, Vickie Irene, Sea Sosa and colleagues, with an educational sal from [employer]. MANUEL-7 Assessment Billing MANUEL-7 Assessment Tool: MANUEL-7 Assessment 97992 Physical exam (Primary Care) Tobacco/Smoking Status: Tobacco use Status Tobacco use date assessed 04/12/25 04/12/25 11:02 Patient Tobacco Use Status Former Tobacco user 04/12/25 11:02 Tobacco use type Cigarette 04/12/25 11:02 e-Cigarette/Vaping Use Never Used 04/12/25 11:02 PHQ-9: PHQ-9 Score PHQ-9: Total score 0 04/12/25 11:21 Depression Screening Interpretation: Negative Thrive Assessment: Date of Thrive Assessment Date Thrive assessed 04/12/25 04/12/25 11:02 Currently or been in a relationship where the following occur: I choose not to answer Telehealth Telehealth Telehealth Platform: Telephone Location of provider rendering services: practice address Location of patient: address on file Patient Identification confirmed using: Name, : Yes Telehealth method: voice only Patient verbally consented to treatment: Yes Patient verbally consented to billing insurance company: Yes Patient informed of any privacy concerns related to visit: Yes Minutes spent on Phone/Video with Pt.: 15 Coding Level of Care Code Tele Est Pt Level 3 (97237) Diagnoses Asthmatic bronchitis J45.909 Additional Codes MANUEL-7 Assessment Billing - MANUEL-7 Assessment Tool: MANUEL-7 Assessment 66145 ([id number]) PHQ-9 - 05929 - PHQ-9 Billing: Yes ([id number]) Assessment & Plan Assessment & Plan (1) Asthmatic bronchitis: Code(s): J45.909 - Unspecified asthma, uncomplicated Category: Medical Plan: off of work thursday. For the sore throat can take Cepacol lozenges, discussed about Delsym to help with dry cough so she can rest and advised to increase oral fluids. Patient also can take Tylenol for chills and fever. Test requested, antibiotic and steroids given Plan History of Present Illness The patient is a 49-year-old female presenting with symptoms of respiratory illness, including cough and difficulty breathing. She has a history of asthma and is a smoker, which may contribute to her respiratory symptoms. Her condition began following an extended period of sleep, after which she developed respiratory symptoms, including runny nose, cough, nasal drip, and fever. She attempted self-treatment with Mucinex and her inhaler but reports persistent severe symptoms and fatigue. By Thursday, the symptoms were severe enough to prevent her from standing and resulted in a day off work. Despite attending work on Thursday, she experienced extreme fatigue afterward. The patient denies sore throat but reports wheezing and decreased appetite. After discussing her condition, a treatment plan was established, involving a change to doxycycline and the initiation of prednisone. Review of Systems - Respiratory: Reports cough, nasal drip, difficulty breathing, wheezing. - General: Reports fatigue, loss of appetite. - ENT: Reports nasal drip. Denies sore throat. - Fever: Reports presence of fever. Plan I have prescribed prednisone for inflammation control and doxycycline as an antibiotic as part of the treatment plan for the patient's respiratory illness. The patient is advised to take both medications as directed, with prednisone taken with food. Additional testing for RSV and influenza in the hospital is advised if symptoms worsen or persist. I instructed the patient to remain hydrated and wear a face mask in public to reduce the risk of infection spread. Further, the patient is advised to consume easily digestible and nutrient-rich meals like soups to support recovery. Patient was informed and verbally consented to the use of an ambient scribe for clinic note documentation during this visit. Discussion Notes During our conversation, I reviewed the patient's symptoms, which include cough, nasal drip, and difficulty breathing. We discussed using prednisone to reduce inflammation and manage her wheezing and respiratory distress. The patient agreed to switch from Zithromax to doxycycline based on her previous experiences and concerns about effectiveness. I emphasized taking prednisone with meals to minimize gastrointestinal discomfort. We also talked about potentially testing for other conditions such as RSV or influenza if her symptoms persist, enabling us to tailor further treatment. The patient agreed to the proposed treatment plan and is expected to product picker her medications from [facility]. I also stressed the importance of hydration and the preventive use of face masks, given the infectious nature of her symptoms. Follow-up care with symptom monitoring was established. Patient Instructions - Take prednisone with food as directed. - Take doxycycline as prescribed. - Stay hydrated, drink plenty of fluids. - Consume nutritious meals, like soup. - Wear a face mask when in public. - Watch for worsening symptoms and seek medical help if necessary. - Schedule RSV and flu tests if symptoms persist or worsen. Orders: Orders SARS-CoV2/FLU/RSV Today J45.909 - Unspecified asthma, uncomplicated Medications: New doxycycline hyclate 100 mg PO BID 14 caps 0RF J45.909 - Unspecified asthma, uncomplicated prednisone 4 tabs QD x 2 days then 3 tabs QD x 2 days then 2 tabs Qd x 2 days then 1 tab QD x 2 days PO daily; 20 tabs 0RF J45.909 - Unspecified asthma, uncomplicated
--- OUTSIDE RECORDS SUMMARY | 2025-04-12 11:55 | XMS_ITS | Clinical Summary ---
Author Organization [facility] ity Address [address] [place] [address] Care Team Providers Care Security Patrol Officer Name Role Phone Unavailable Primary Care Provider [...] - 2023-2 5 season) 2024 Influenza Vaccine (Season Ended) 2025 HIB Vaccines Aged Out No longer eligi [...] age to complete this topic Meningococcal B Vaccine Aged Out No l onger eligible based on patient's age to complete [...]
== END 2025-04-12 12:39 | disposition home or self-care (01) ==
LOC: HO.HMCH 10:59
PROVIDERS: PCP Internal Medicine; Visit Provider Internal Medicine
DX: J45.909 Unspecified asthma, uncomplicated (principal)

== ENCOUNTER → 2025-04-12 10:59 | Outpatient (BNVA) | payer MEDICARE, SELFPAY | PROVIDERS: PCP Internal Medicine; Visit Provider Internal Medicine | DX: J45.909 Unspecified asthma, uncomplicated (principal) | CPT/HCPCS: 96127 ==

== ENCOUNTER 2025-07-24 10:00 | Outpatient (AMB) | payer OTHER, MEDICARE, SELFPAY ==
[2025-07-24 10:56] VITALS: BP 108/72; PULSE 84; TEMP 36.8; O2SAT 98; BMI 32.1
--- NOTE | 2025-07-24 10:56 | MHC.OFFWIV ---
Intake Vital Signs 07/24/25 10:56 Height 5 ft 11 in Weight 230 lb BMI 32.1 BP 108/72 Blood Pressure Location Lt brachial Position Sitting Pulse 84 Pulse Source Pulse Oximeter Temp 98.3 F Temp Source Oral Pulse Oximetry (%) 98 Oxygen Delivery Method Room Air Intake Visit Reasons: ep migraine/ sinus infection Intake Note: pt present with sinus pain, fatigue and migraines for 3 days Patient Tobacco Use Status: Former Tobacco user Allergies phenytoin (Dilantin) Allergy (Severe, Verified 07/24/25 10:59) Anaphylaxis vancomycin (VANCOMYCIN) Allergy (Severe, Verified 07/24/25 10:59) ANAPHYLAXIS nitrofurantoin (From Macrobid) Allergy (Intermediate, Verified 07/24/25 10:59) Rash fluconazole (Diflucan) Allergy (Unknown, Verified 07/24/25 10:59) anaphylaxis pantoprazole (Protonix) Allergy (Unknown, Verified 07/24/25 10:59) anaphylaxis Do you need a note to return to daycare/school/sports/work: Yes HPI HPI Comments History of Present Illness Details History of Present Illness - The patient is a 50-year-old female presenting with a headache and congestion. - She reports a persistent migraine unresponsive to medications, accompanied by exhaustion, chills, congestion, and nighttime coughing. - The patient has a history of sinus issues and suspects a sinus infection. - She smokes but has been smoking less. - She has no sick contacts but she does work in a school. - She denies fever, chills, CP, SOB, abd pain, n/v/d. - She wants a covid and flu test. - She needs a note for work. Physical Exam General: Cooperative, healthy appearing, comfortable, no acute distress and well developed Head: Normal to inspection Ears: Hearing grossly normal bilaterally. No tragus or mastoid tenderness noted. Auditory canals clear bilaterally. TM's normal, not bulging. No fluid noted. Nose: Normal external nose present. Moist mucosa. Turbinates normal bilaterally, not boggy. Face and sinus: Tenderness to palpation of the frontal and maxillary sinuses bilaterally. Neck: Normal visual inspection and Yes full ROM. No lymphadenopathy noted. Respiratory: Normal respiratory effort and able to speak in complete sentences. Clear to auscultation bilaterally Cardiovascular: Regular rate and rhythm. Normal S1 and S2 GI: Normal to inspection. Soft to palpation and nontender, nondistended. No guarding noted. Skin: No rashes or lesions noted [facility] Medical History (Updated 04/12/25 @ 11:20 by Myranda Benitez MD) Rash Recurrent sinus infections Dysuria Angular cheilitis Asthma exacerbation Herpes zoster infection of oral mucosa Acute bronchitis URI, acute Hx LEEP (loop electrosurgical excision procedure), cervix, Breast cancer screening by mammogram Obesity (BMI 30.0-34.9) PUD (peptic ulcer disease) PAO II (cervical intraepithelial neoplasia II) HPV in female Amenorrhea Head trauma Tobacco abuse Vitamin D deficiency Anxiety GERD (gastroesophageal reflux disease) Asthma Complex partial seizure Surgical History Hx of bladder endoscopy History of removal of ovarian cyst History of tubal ligation Cavernous hemangioma of brain Family History Father Parkinson disease Stroke CVD (cardiovascular disease) TIA (transient ischemic attack) Mother Non Hodgkin's lymphoma Hypertension Paternal Aunt Ovarian cancer Paternal Uncle Pancreatic cancer Daughter Heart problem Son No problems noted. Daughter Mental health disorder Depression Anxiety Social History Housing: House Alcohol intake: never Patient Tobacco Use Status: Former Tobacco user Tobacco use type: Cigarette Cigarettes Per Day: 1 e-Cigarette/Vaping Use: Never Used Second Hand Smoke Exposure: No Advance Directives Date on File: 08/23/21 service: No Current occupational status: employed Cognitive needs: No Hearing needs: No Vision needs: Yes (Glasses) Female Reproductive History Menstrual Age of Menarche: 14 Review of Systems Const All systems reviewed & are unremarkable except as noted in HPI and below Physical Exam Vital Signs: Last Vital Signs Temp 98.3 F 07/24/25 10:56 Pulse 84 07/24/25 10:56 BP 108/72 07/24/25 10:56 Pulse Ox 98 07/24/25 10:56 Oxygen Delivery Method Room Air 07/24/25 10:56 BMI result Body Mass Index 32.1 Assessment & Plan Assessment & Plan (1) Sinusitis: Code(s): J32.9 - Chronic sinusitis, unspecified Qualifiers: Sinusitis location: frontal Chronicity: acute Recurrence: non-recurrent Qualified Code(s): J01.10 - Acute frontal sinusitis, unspecified Plan Most likely sinusitis vs covid vs flu vs RSV vs viral illness plan - steam showers - augmentin BID for 7 days - prednisone for 5 days - tylenol or motrin as needed - would add OTC zyrtec and flonase daily - will order covd/flu/rsv swab and call with the results - follow up with pcp - work note given Orders: Orders Resp Pathogen Panel - [facility] Today J06.9 - Acute upper respiratory infection, unspecified Medications: New amoxicillin-pot clavulanate 875-125 mg 1 tab PO Q12H 14 tabs 0RF prednisone 40 mg (2 x 20 mg) PO DAILY 10 tabs 0RF 5 days Coding Level of Care Code Est Pt Level 3 (72725) Diagnoses Acute non-recurrent frontal sinusitis J01.10 Sinusitis location: frontal Chronicity: acute Recurrence: non-recurrent
--- OUTSIDE RECORDS SUMMARY | 2025-07-24 12:27 | XMS_ITS | Clinical Summary ---
Author Organization [facility] ity Address [address] [place] [address] Care Team Providers Care Roll Up Guider Operator Name Role Phone Unavailable Primary Care [...] Smear 1996 Colorectal Cancer Screening: Colonoscopy 06/01/2024 HIV Screening 06/01/2024 Hepatitis C Screening 06/01/2024 Social Influencers of Health Screening 06/01/2024 Depression Screening 11/09/2024 Pneumococcal Vaccine: 50+ Ye ars (1 of 1 - PCV) 2025 Zoster Vaccines (1 of 2) 2025 COVID-19 Vaccine (1 - 2023-2 5 season) 2025 Influenza Vaccine (#1) 2025 HIB Vaccines Aged Out No longer [...]
== END 2025-07-24 11:46 | disposition home or self-care (01) ==
PROVIDERS: PCP Internal Medicine; Visit Provider Physician Assistant Medical
DX: J01.10 Acute frontal sinusitis, unspecified (principal)

== ENCOUNTER 2025-07-24 10:00 | Outpatient (REF) | payer OTHER, MEDICARE, SELFPAY ==
[2025-07-24 15:50] LABS: Chlamydia pneumoniae PCR Not Detected (Not Detect.); Coronavirus 229E PCR Not Detected (Not Detect.); Coronavirus HKU1 PCR Not Detected (Not Detect.); Coronavirus NL63 PCR Not Detected (Not Detect.); Coronavirus OC43 PCR Not Detected (Not Detect.); RSV PCR Not Detected (Not Detect.); Rhino/Enterovirus PCR Not Detected (Not Detect.)
[2025-07-24 16:37] LABS: Influenza A H1 PCR Not Detected (Not Detect.); Influenza A H1-2009 PCR Not Detected (Not Detect.); Influenza A H3 PCR Not Detected (Not Detect.); SARS-CoV-2 PCR Not Detected (Not Detect.)
== END 2025-07-24 10:01 | disposition home or self-care (01) ==
LOC: HO.LNP 10:00
PROVIDERS: PCP Internal Medicine; Visit Provider Physician Assistant Medical
DX: R53.83 Other fatigue (principal); J01.10 Acute frontal sinusitis, unspecified; J06.9 Acute upper respiratory infection, unspecified; R09.89 Other specified symptoms and signs involving the circulatory and respiratory systems; R51.9 Headache, unspecified; Z87.891 Personal history of nicotine dependence; R05.9 Cough, unspecified
CPT/HCPCS: 87633